=== PATIENT | female | born 1985 | race African-American/Black ===

== ENCOUNTER 2016-02-18 08:42 | Emergency (ER) | payer OTHER ==
[2016-02-18 08:48] VITALS: RESP 18
--- NOTE | 2016-02-18 08:57 | ED ---
Abdominal Pain HPI - General Chief Complaint: Abdominal Pain Stated Complaint: abd pain Time Seen by Provider: 02/18/16 08:48 Source: patient, RN notes reviewed Mode of arrival: ambulatory Limitations: no limitations - History of Present Illness Initial Comments: 30-year-old female presents emergency Department chief complaint left lower quadrant abdominal pain. Patient states the pain on and off over the last month and half. Patient states that she believes she has ovarian cysts. Patient states she has not had a menstrual cycle going to months. She states that she is not she's had multiple tests. Denies any vaginal bleeding vaginal discharge. Patient denies any nausea, vomiting, diarrhea constipation. She states putting pressure over the area does improve her symptoms. Patient states she had a Pap smear and end of December which was normal. Patient denies any fevers, chills. Denies any dysuria or hematuria. She did admit to some urinary frequency. - Related Data Home Medications Medication Instructions Recorded Confirmed Hydrochlorothiazide [Hydrodiuril] 25 mg PO DAILY 01/15/16 02/18/16 amLODIPine [Norvasc] 5 mg PO DAILY 01/15/16 02/18/16 metroNIDAZOLE [Flagyl] 500 mg PO TID 02/18/16 02/18/16 Allergies Allergy/AdvReac Type Severity Reaction Status Date / Time doxycycline Allergy Rash/Hives Verified 02/18/16 10:10 Review of Systems ROS Statement: Those systems with pertinent positive or pertinent negative responses have been documented in the HPI. ROS Other: All systems not noted in ROS Statement are negative. Past Medical History Past Medical History: GERD/Reflux, Hypertension, Pneumonia History of Any Multi-Drug Resistant Organisms: MRSA Date of last positivie culture/infection: 2006 MDRO Source:: LEFT LEG Additional Past Surgical History / Comment(s): GANGLION CYST REMOVAL, OVARIAN CYST REMOVAL Past Psychological History: Anxiety Smoking Status: Former smoker Past Alcohol Use History: None Reported, Rare Past Drug Use History: None Reported - Past Family History Father Family Medical History: Congestive Heart Failure (CHF), Diabetes Mellitus, Deep Vein Thrombosis (DVT), Hypertension, Sleep Apnea/CPAP/BIPAP General Exam Limitations: no limitations General appearance: alert, in no apparent distress Head exam: Present: atraumatic, normocephalic, normal inspection Respiratory exam: Present: normal lung sounds bilaterally. Absent: respiratory distress, wheezes, rales, rhonchi, stridor Cardiovascular Exam: Present: regular rate, normal rhythm, normal heart sounds. Absent: systolic murmur, diastolic murmur, rubs, gallop, clicks GI/Abdominal exam: Present: soft, tenderness (Mild to moderate left lower quadrant tenderness), normal bowel sounds. Absent: distended, guarding, rebound , rigid Back exam: Absent: CVA tenderness (R), CVA tenderness (L) Neurological exam: Present: alert, oriented X3 Skin exam: Present: warm, dry, intact, normal color. Absent: rash Course Vital Signs 02/18/16 08:45 Temperature 97.3 F L Pulse Rate 90 Respiratory 18 Rate Blood Pressure 151/68 O2 Sat by Pulse 99 Oximetry Medical Decision Making - Medical Decision Making 30-year-old female presents emergency Department for left sided abdominal pain. Patient was concerned about ovarian cysts and one. PATIENT ULTRASOUND DOES NOT SHOW OVARIAN CYST. PATIENT LAB WORK WITHIN NORMAL LIMITS. THIS IS ONGOING PAIN. 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 RETURN PARAMETERS WERE DISCUSSED. - Lab Data Result diagrams: 02/18/16 09:20 02/18/16 09:20 Lab Results 02/18/16 02/18/16 02/18/16 Range/Units 09:20 09:20 09:20 WBC 9.4 (3.8-10.6) k/uL RBC 4.64 (3.80-5.40) m/uL Hgb 13.2 (11.4-16.0) gm/dL Hct 39.9 (34.0-46.0) % MCV 86.0 (80.0-100.0) fL MCH 28.4 (25.0-35.0) pg MCHC 33.0 (31.0-37.0) g/dL RDW 13.5 (11.5-15.5) % Plt Count 367 (150-450) k/uL Neutrophils % 60 % Lymphocytes % 30 % Monocytes % 6 % Eosinophils % 3 % Basophils % 0 % Neutrophils # 5.7 (1.3-7.7) k/uL Lymphocytes # 2.8 (1.0-4.8) k/uL Monocytes # 0.6 (0-1.0) k/uL Eosinophils # 0.2 (0-0.7) k/uL Basophils # 0.0 (0-0.2) k/uL Sodium 145 (137-145) mmol/L Potassium 3.5 (3.5-5.1) mmol/L Chloride 103 (98-107) mmol/L Carbon Dioxide 26 (22-30) mmol/L Anion Gap 16 mmol/L BUN 16 (7-17) mg/dL Creatinine 0.86 (0.52-1.04) mg/dL Est GFR (MDRD) Af Amer >60 (>60 ml/min/1.73 sqM) Est GFR (MDRD) Non-Af >60 (>60 ml/min/1.73 sqM) Glucose 106 H (74-99) mg/dL Calcium 9.7 (8.4-10.2) mg/dL Total Bilirubin 0.5 (0.2-1.3) mg/dL AST 28 (14-36) U/L ALT 40 (9-52) U/L Alkaline Phosphatase 62 (38-126) U/L Total Protein 7.8 (6.3-8.2) g/dL Albumin 4.6 (3.5-5.0) g/dL Amylase 85 (30-110) U/L Lipase 186 (23-300) U/L Urine Color Urine Appearance (Clear) Urine pH (5.0-8.0) Ur Specific [place] (1.001-1.035) Urine Protein (Negative) Urine Glucose (UA) (Negative) Urine Ketones (Negative) Urine Blood (Negative) Urine Nitrate (Negative) Urine Bilirubin (Negative) Urine Urobilinogen (<2.0) mg/dL Ur Leukocyte Esterase (Negative) Urine RBC (0-5) /hpf Urine WBC (0-5) /hpf Ur Squamous Epith Cells (0-4) /hpf Urine Bacteria (None) /hpf Urine Mucus (None) /hpf Urine HCG, Qual Not Detected (Not Detectd) 02/18/16 Range/Units 09:20 WBC (3.8-10.6) k/uL RBC (3.80-5.40) m/uL Hgb (11.4-16.0) gm/dL Hct (34.0-46.0) % MCV (80.0-100.0) fL MCH (25.0-35.0) pg MCHC (31.0-37.0) g/dL RDW (11.5-15.5) % Plt Count (150-450) k/uL Neutrophils % % Lymphocytes % % Monocytes % % Eosinophils % % Basophils % % Neutrophils # (1.3-7.7) k/uL Lymphocytes # (1.0-4.8) k/uL Monocytes # (0-1.0) k/uL Eosinophils # (0-0.7) k/uL Basophils # (0-0.2) k/uL Sodium (137-145) mmol/L Potassium (3.5-5.1) mmol/L Chloride (98-107) mmol/L Carbon Dioxide (22-30) mmol/L Anion Gap mmol/L BUN (7-17) mg/dL Creatinine (0.52-1.04) mg/dL Est GFR (MDRD) Af Amer (>60 ml/min/1.73 sqM) Est GFR (MDRD) Non-Af (>60 ml/min/1.73 sqM) Glucose (74-99) mg/dL Calcium (8.4-10.2) mg/dL Total Bilirubin (0.2-1.3) mg/dL AST (14-36) U/L ALT (9-52) U/L Alkaline Phosphatase (38-126) U/L Total Protein (6.3-8.2) g/dL Albumin (3.5-5.0) g/dL Amylase (30-110) U/L Lipase (23-300) U/L Urine Color Yellow Urine Appearance Cloudy H (Clear) Urine pH 5.5 (5.0-8.0) Ur Specific [place] 1.020 (1.001-1.035) Urine Protein Trace H (Negative) Urine Glucose (UA) Negative (Negative) Urine Ketones Trace H (Negative) Urine Blood Trace H (Negative) Urine Nitrate Negative (Negative) Urine Bilirubin Negative (Negative) Urine Urobilinogen <2.0 (<2.0) mg/dL Ur Leukocyte Esterase Trace H (Negative) Urine RBC 4 (0-5) /hpf Urine WBC 3 (0-5) /hpf Ur Squamous Epith Cells 3 (0-4) /hpf Urine Bacteria Rare H (None) /hpf Urine Mucus Rare H (None) /hpf Urine HCG, Qual (Not Detectd) Disposition Clinical Impression: Abdominal pain Disposition: HOME SELF-CARE Condition: Stable Instructions: Abdominal Pain (ED) Additional Instructions: Please return to the Emergency Department if symptoms worsen or any other concerns. Time of Disposition: 11:24
[2016-02-18 09:37] LABS: Appearance,Urine Cloudy (Clear); Bacteria,Urine Rare /hpf; Bilirubin,Urine Negative (Negative); Glucose,Urine (UA) Negative (Negative); Ketones,Urine Trace (Negative); Leukocyte Esterase,Urine Trace (Negative); Mucus,Urine Rare /hpf; Nitrite,Urine Negative (Negative); PH, Urine 5.5 (5.0-8.0); Particle Count 4312; Protein,Urine Trace (Negative); RBC,Urine 4 /hpf (0-5); Squamous Epithelial Cell,Urine 3 /hpf (0-4); UA Billing (MACRO vs. MICRO) MICRO; Urobilinogen,Urine <2.0 mg/dL (<2.0); WBC,Urine 3 /hpf (0-5)
[2016-02-18 09:49] LABS: ALT 40 U/L (9-52); AST 28 U/L (14-36); Alkaline Phosphatase 62 U/L (38-126); Amylase 85 U/L (30-110); Anion Gap 16 mmol/L; Blood Urea Nitrogen 16 mg/dL (7-17); Calcium 9.7 mg/dL (8.4-10.2); Carbon Dioxide 26 mmol/L (22-30); Chloride 103 mmol/L (98-107); Glucose 106 mg/dL (74-99); Non-African American GFR(MDRD) >60 (>60 ml/min/1.73 sqM); Potassium 3.5 mmol/L (3.5-5.1); Sodium 145 mmol/L (137-145); Total Bilirubin 0.5 mg/dL (0.2-1.3); Total Protein 7.8 g/dL (6.3-8.2)
[2016-02-18 09:51] LABS: Basophils % (A) 0 %; CH 28.4; CHCM 33.2; Eosinophils # (A) 0.2 k/uL (0-0.7); Eosinophils % (A) 3 %; HCT 39.9 % (34.0-46.0); HDW 2.62; HGB 13.2 gm/dL (11.4-16.0); Luc # (Auto) 0.13; Luc % (Auto) 1; Lymphocytes # (A) 2.8 k/uL (1.0-4.8); Lymphocytes % (A) 30 %; MCH 28.4 pg (25.0-35.0); Mean Platelet Volume 7.7; Monocytes # (A) 0.6 k/uL (0-1.0); Monocytes % (A) 6 %; Neutrophils # (A) 5.7 k/uL (1.3-7.7); Neutrophils % (A) 60 %; RBC 4.64 m/uL (3.80-5.40); RDW 13.5 % (11.5-15.5); WBC 9.4 k/uL (3.8-10.6); WBC (Perox) 9.71
[2016-02-18] MEDS ORDERED: KETOROLAC 30 MG/ML 1 ML VIAL IVP STA (10:58)
--- NOTE | 2016-02-18 11:05 | US ---
EXAMINATION TYPE: US pelvis complete transvag DATE OF EXAM: 02/18/2016 9:49 AM COMPARISON: Prior pelvic ultrasound performed April 2015 CLINICAL HISTORY: LLQ pain. Irregular Periods. TECHNIQUE: Endovaginal pelvic ultrasound scanning performed. Date of LMP: December EXAM MEASUREMENTS: Uterus: 10.3 x 7.6 x 6.5 cm Endometrial Stripe: 0.9 cm Right Ovary: 3.1 x 2.3 x 1.8 cm Left Ovary: 3.5 x 2.7 x 2.5 cm FINDINGS: 1. Uterus: bulky, cystic areas in SRAVANTHI likely nabothian cysts, the uterus is anteverted. 2. Endometrium: wnl 3. Right Ovary: wnl, with follicles. 4. Left Ovary: wnl, with follicles. Spectral, color and waveform doppler imaging shows good arterial and venous flow within the ovaries ; there is no evidence for ovarian torsion. 5. Bilateral Adnexa: wnl 6. Posterior cul-de-sac: wnl Grayscale, color Doppler, spectral Doppler imaging performed of the ovaries. Color flow, vascular wav eforms noted to both ovaries. IMPRESSION: Endometrium is improved compared to prior exam. Normal Values: Uterine Length: < 10cm Endometrium: Proliferative (Day 6 ? 14): 4 ? 6mm Secretory (Day 15 ? 28): 7 ? 14mm Post Menopausal (and not symptomatic): up to 8mm Post Menopausal (with vaginal bleeding): upper limits <5mm Post Menopausal with HRT: upper limits 8 - 15mm Post Menopausal with tamoxifen: < 6mm (although 50% of those receiving tamoxifen have been reported t o have thickness >8mm)
[2016-02-18 11:33] VITALS: BP 131/63; PULSE 82; TEMP 97.9
== END 2016-02-18 11:34 | disposition home or self-care (01) ==
LOC: EC 08:42
DX: R10.32 Left lower quadrant pain (principal); R35.0 Frequency of micturition; Z79.899 Other long term (current) drug therapy; Z88.1 Allergy status to other antibiotic agents; I10 Essential (primary) hypertension; Z87.891 Personal history of nicotine dependence
CPT/HCPCS: 99284; 96374; 36415; 80053; 82150; 83690; 85025; 81001; 81025; 93975; 76856; 76830; J1885

== ENCOUNTER → 2016-05-06 | Outpatient (CLI) | payer OTHER | LOC: RADMAMWWP 07:42 | PROVIDERS: ATTEND Family Medicine | DX: Z53.9 Procedure and treatment not carried out, unspecified reason (principal) ==

== ENCOUNTER 2016-12-20 16:30 | Inpatient (IN) | payer OTHER ==
[2016-12-20] MEDS ORDERED: RX INFO: IV CONTRAST WAS GIVEN 1 EACH MISC MISCELLANE PRN (17:49)
[2016-12-20] MEDS ORDERED: ACETAMINOPHEN TAB 325 MG TAB PO PRN (18:05)
[2016-12-20] MEDS: HYDROmorphone 1 MG/ML 1 ML SYRINGE IVP PRN ×2 (18:34→23:34)
[2016-12-20 18:43] LABS: Basophils # (A) 0.1 k/uL (0-0.2); Basophils % (A) 1 %; CH 28.1; CHCM 32.5; Eosinophils # (A) 0.4 k/uL (0-0.7); Eosinophils % (A) 2 %; HCT 40.1 % (34.0-46.0); HDW 2.87; HGB 12.7 gm/dL (11.4-16.0); Immature Gran Flag Slight; Luc # (Auto) 0.17; Luc % (Auto) 1; Lymphocytes # (A) 1.7 k/uL (1.0-4.8); Lymphocytes % (A) 10 %; MCH 27.6 pg (25.0-35.0); MCHC 31.8 g/dL (31.0-37.0); MCV 86.9 fL (80.0-100.0); Monocytes # (A) 0.6 k/uL (0-1.0); Monocytes % (A) 3 %; Neutrophils # (A) 14.8 k/uL (1.3-7.7); Neutrophils % (A) 84 %; RBC 4.61 m/uL (3.80-5.40); RDW 13.4 % (11.5-15.5); WBC 17.7 k/uL (3.8-10.6); WBC (Perox) 19.07
[2016-12-20 18:52] LABS: Manual Review Performed
[2016-12-20] MEDS: IOHEXOL 350 MG/ML 25 ML BOTTLE (ORAL USE) PO PRN ×2 (19:17→20:16)
[2016-12-20 20:06] LABS: ALT 44 U/L (9-52); AST 34 U/L (14-36); Alkaline Phosphatase 73 U/L (38-126); Anion Gap 10 mmol/L; Blood Urea Nitrogen 15 mg/dL (7-17); Calcium 9.5 mg/dL (8.4-10.2); Carbon Dioxide 21 mmol/L (22-30); Chloride 105 mmol/L (98-107); Glucose 105 mg/dL (74-99); Non-African American GFR(MDRD) >60 (>60 ml/min/1.73 sqM); Potassium 3.5 mmol/L (3.5-5.1); Sodium 136 mmol/L (137-145); Total Bilirubin 0.4 mg/dL (0.2-1.3); Total Protein 7.2 g/dL (6.3-8.2)
[2016-12-20] MEDS: AMPICILLIN-SULBACTAM 3 GM in SODIUM CHLORIDE 0.9% 100 ML IVPB SCH ×2 (20:16→23:41)
[2016-12-20] MEDS: IBUPROFEN 800 MG TAB PO SCH ×2 (20:16→23:32)
[2016-12-20] MEDS: DEXTROSE 5%-0.45% NACL 1,000 ML IV SCH (20:19)
[2016-12-20 20:40] LABS: Appearance,Urine Cloudy (Clear); Bacteria,Urine Rare /hpf; Bilirubin,Urine Negative (Negative); Glucose,Urine (UA) Negative (Negative); Ketones,Urine Negative (Negative); Leukocyte Esterase,Urine Negative (Negative); Mucus,Urine Rare /hpf; Nitrite,Urine Negative (Negative); Particle Count 2588; Protein,Urine Trace (Negative); RBC,Urine 5 /hpf (0-5); Specific Gravity,Urine 1.018 (1.001-1.035); Squamous Epithelial Cell,Urine 5 /hpf (0-4); UA Billing (MACRO vs. MICRO) MICRO; WBC,Urine 1 /hpf (0-5)
--- NOTE | 2016-12-20 22:37 | CT ---
EXAMINATION TYPE: CT abdomen pelvis w con DATE OF EXAM: 12/20/2016 COMPARISON: 11/01/2010 HISTORY: Middle to lower back pain. CT DLP: 2510.5 mGycm Automated exposure control for dose reduction was used. TECHNIQUE: Helical acquisition of images was performed from the lung bases through the pelvis. CONTRAST: Performed with Oral Contrast and with IV Contrast, patient injected with 100 mL of Omnipaque 300. FINDINGS: Lung bases are clear of infiltrate. There is no pleural effusion. Liver spleen pancreas gallbladder a ppear normal. Bile ducts are not dilated. There is no adrenal mass. Kidneys show satisfactory contrast opacification. There is no hydronephrosi s. There is no retroperitoneal adenopathy. There is no ascites. Appendix appears normal. The bladder distends smoothly. There is a oval-shaped 5 x 2.5 cm fluid collection in the pelvis on the right side that is probably an ovarian cyst. I see no intestinal wall thickening. There are no dilated loops. IMPRESSION: THERE IS EVIDENCE OF LARGE RIGHT OVARIAN CYST THAT IS NEW COMPARED TO OLD EXAM. NORMAL APPENDIX.
[2016-12-21] MEDS: DEXTROSE 5%-0.45% NACL 1,000 ML IV SCH ×4 (02:04→22:46)
[2016-12-21] MEDS: HYDROmorphone 1 MG/ML 1 ML SYRINGE IVP PRN ×4 (05:24→23:50)
[2016-12-21] MEDS: AMPICILLIN-SULBACTAM 3 GM in SODIUM CHLORIDE 0.9% 100 ML IVPB SCH ×4 (05:25→23:11)
[2016-12-21] MEDS: IBUPROFEN 800 MG TAB PO SCH ×4 (08:54→22:51)
--- NOTE | 2016-12-21 10:10 | US ---
EXAMINATION TYPE: US abdomen complete DATE OF EXAM: 12/21/2016 COMPARISON: CT dated 12/20/2016 CLINICAL HISTORY: abd pain . Pt states ABD pain, generalized EXAM MEASUREMENTS: Liver Length: 19.3 cm Gallbladder Wall: 0.2 cm CBD: 0.4 cm Spleen: 10.5 cm Right Kidney: 11.6 x 5.0 x 6.0 cm Left Kidney: 12.3 x 6.6 x 5.5 cm Large pt body habitus Pancreas: wnl Liver: Enlarged, heterogeneous with hyperechoic lesion right anterior lobe= 2.2 x 1.9 x 2.3 cm . Int ernally within this hyperechoic well-circumscribed lesion there appears to be possible portal triads coursing unaffected therefore this may relate to focal fatty infiltration, hemangioma or less likely hepatic neoplasm. Full characterization with CT thorax is recommended. Gallbladder: wnl Evidence for sonographic Coelho's sign: No CBD: wnl Spleen: wnl Right Kidney: wnl Left Kidney: Appeared wnl, somewhat difficult to visualize due to overlying bowel gas Upper IVC: wnl Abd Aorta: wnl The intrahepatic portion of the IVC and proximal abdominal aorta are within normal limits. There is no evidence of cholelithiasis. Common bile duct is unremarkable. The visualized portions of the [place] are homogenous. The spleen is unremarkable. Kidneys are symmetric and free of hydronephrosis. No renal lesions are seen. IMPRESSION: 1. 2.2 cm hyperechoic hepatic lesion with question portal triads coursing through the mass unaffected , therefore favored to relate to focal fatty infiltration, however full characterization with dynamic enhanced CT or MR hepatic mass protocol is recommended to ensure benignity, this does not relate to a hepatic neoplasm. 2. Mild coarsened hepatic echotexture, most commonly relating to mild hepatic steatosis. 3. No sonographic evidence of acute cholecystitis or cholelithiasis.
--- NOTE | 2016-12-21 12:53 | CONS ---
CONSULTATION DATE OF SERVICE: 12/21/2016 REASON FOR CONSULTATION: Urinary tract infection. HISTORY OF PRESENT ILLNESS: The patient is a 31-year-old female who has been admitted to the hospital directly from Dr. Calhoun's office for evaluation and treatment of possible pyelonephritis. The patient says she was doing well; however, yesterday she suddenly got hit with a fever with rigors and chills, generalized body aches. The patient had been complaining of pain in her left flank area, is described to be sharp pain almost 10/10, and no radiation. The patient denies significant burning or frequency of urine. No diarrhea. Some nausea but no vomiting. With these symptoms, the patient was evaluated and diagnosed with possible pyelonephritis. She was started on Unasyn and admitted to the hospital and ID was consulted for further recommendation regarding antibiotic therapy. On arrival to the hospital, patient did have fever of 102.3 , later on did have fever of 101.2. Blood work did show the white count of 17.7. However, UA was not significantly positive and blood cultures obtained which are currently pending. Patient did have a CT of the abdominal and pelvis which did see the possibility of a right ovarian cyst, that is new compared to the old exam. REVIEW OF SYSTEMS: CONSTITUTIONAL: Positive for weakness along with the fever. EYES: No complaint. ENT: Some congestion noted and some sore throat started yesterday. RESPIRATORY SYSTEM: No complaint. CARDIOVASCULAR: No complaint. GENITOURINARY: No complaint. GASTROINTESTINAL: As per HPI. MUSCULOSKELETAL: No complaint. INTEGUMENTARY: No complaint. PSYCHOLOGICAL: No complaint. ENDOCRINE: No complaint. NEUROLOGICAL: No complaint. PAST MEDICAL HISTORY: Hypertension, gastroesophageal reflux disease, pneumonia. Previous history of breast reduction, site infection with Staph epi and MRSA left leg infection. PAST SURGICAL HISTORY: ovarian cyst removal and bilateral breast reduction. SOCIAL HISTORY: Remote history of smoking, no drinking or drug use. FAMILY HISTORY: Father history of congestive heart failure, diabetes, and DVT. ALLERGIES: DOXYCYCLINE. MEDICATIONS: The patient is currently on Tylenol, Unasyn 3 g q.6. He is on Dilaudid, Motrin. PHYSICAL EXAMINATION: Blood pressure is 128/78 with a pulse of 70, temperature 97.5, T-max of 101. She is 98% on room air. General description is a middle aged female, lying in bed in no distress. No tachypnea or accessory muscle for respiration use. HEENT: Shows no pallor or scleral icterus. Oral mucosa is dry. No significant erythema or thrush. NECK: Trachea central, no thyromegaly. LUNGS: Unlabored breathing, clear to auscultation anteriorly. HEART: S1, S2. Regular rate and rhythm. ABDOMEN: Soft,. noted have mild tenderness on the left flank area. No guarding. No rigidity. EXTREMITIES: No edema. Feet examination no rash or mass palpable. Neurologically, patient is awake, alert, oriented x3. No signs of meningeal irritation. LABS: Hemoglobin is 12.7, white count 17.7 with a BUN of 15, creatinine 1.0. Urine was slightly cloudy, had no significant leukocyte esterases, nitrate or white cells. CT report as mentioned above. DIAGNOSTIC IMPRESSION AND PLAN: Patient admitted to the hospital with a fever with elevated white count, meeting criteria for SIRS and sepsis predominantly with pain in the left flank area that could be suggestive of possible pyelonephritis. However, the patient's UA was not significantly positive and the CT suspicious mostly for a ovarian cyst with a question of possible ruptured ovarian cyst. However, with her symptoms of body aches and some upper respiratory infection symptoms, underlying influenza need to be ruled out. PLAN: 1. Will check an influenza A and B serology. 2. Will check an ultrasound of the pelvic area to follow up on the ovarian cyst. 3. Will keep the patient on Unasyn while waiting for the culture to finalize. 4. Will follow up on the clinical condition and culture to further adjust medication if needed. Thank you for this consultation. Will follow this patient along with you. MMODL / IJN: [id number] / ANNALISA
--- NOTE | 2016-12-21 14:36 | US ---
EXAMINATION TYPE: US transvaginal DATE OF EXAM: 12/21/2016 COMPARISON: Prior ultrasound 02/18/2016, CT scan 12/20/2016 CLINICAL HISTORY: pelvic pain ?ovarian cyst/rupture. TECHNIQUE: Transvaginal (TV) Date of LMP: 10/10/16 EXAM MEASUREMENTS: Uterus: 10.4 x 5.5 x 6.5 cm Endometrial Stripe: 1.5 cm Right Ovary: 5.4 x 3.4 x 4.6 cm Left Ovary: not visualized 1. Uterus: Anteverted wnl, nabothians noted 2. Endometrium: thickened 3. Right Ovary: 4.7 x 2.9 x 4.5cm cyst 4. Left Ovary: Obscured by overlying bowel gas 5. Bilateral Adnexa: wnl 6. Posterior cul-de-sac: wnl IMPRESSION: The thickening of the endometrium has recurred. Right ovarian cyst. Nonvisualization left ovary. Follow-up suggested.
--- NOTE | 2016-12-21 17:08 | HP ---
HISTORY AND PHYSICAL DATE OF ADMISSION: 12/20/16 CHIEF COMPLAINT: Abdominal pain and fever. HISTORY OF PRESENT ILLNESS: This is the first admission for this 31-year-old, obese female. She came to the office with complaints of lower abdominal and back pain. The pain is in the flank area. She had no vomiting but she had an elevated temperature of around 104. In the office her flat and upright failed to demonstrate anything abnormal, but it was felt that she may be developing sepsis and should be admitted. REVIEW OF SYSTEMS: She has had no confusion, hemoptysis, heart disease, lung disease, hematemesis, melena, jaundice, renal disease, hematuria, frequency, urgency, and dysuria, etc. PAST MEDICAL HISTORY: Past medical history, family history personal social history is unremarkable except that she does have hypertension and some problems with asthma. SOCIAL HISTORY: She does smoke. She has not had any swelling in the leg. PHYSICAL EXAM: Blood pressure 142/82, pulse 108, respirations of 36 and temperature of 104.6. In general she appeared to be obese and acutely ill. Skin color is normal. Skin was hot and dry. Head ears, eyes, nose, mouth, and throat were normal. NECK: Supple. Chest is clear. Cardiac exam is normal. She had some mild generalized tenderness in the abdomen, flanks slightly were not tender. EXTREMITIES: Normal. Neurologically she is intact. Pelvic exam was not performed. IMPRESSION: 1. Abdominal pain. 2. Flank pain. 3. ? pyelonephritis. 4. ? sepsis. PLAN: 1. Bed rest. 2. IV fluids. 3. IV antibiotics. 4. Appropriate cultures. 5. Consult Infectious Disease. MMODL / IJN: [id number] /
--- NOTE | 2016-12-21 17:29 | PN ---
PROGRESS NOTE DATE OF SERVICE: 12/21/2016 CHIEF COMPLAINT: Abdominal pain and fever. HISTORY OF PRESENT ILLNESS: This lady is doing better and temperature is down. She is not having nearly the pain that she was having. Her CT does show a large right ovarian cyst which is not likely to be consistent with her presentation. PHYSICAL EXAM: Her abdomen seems soft and nontender and flanks are nontender. CHEST: Clear. CARDIAC: Normal. IMPRESSION: 1. Fever of unknown origin. 2. Flank pain. 3. Right ovarian cyst. PLAN: Continue to follow in terms of clinical picture and laboratory studies. While awaiting cultures. MMODL / IJN: [id number] /
[2016-12-22] MEDS: DEXTROSE 5%-0.45% NACL 1,000 ML IV SCH ×4 (01:48→21:56)
[2016-12-22] MEDS: AMPICILLIN-SULBACTAM 3 GM in SODIUM CHLORIDE 0.9% 100 ML IVPB SCH ×4 (05:26→23:42)
[2016-12-22] MEDS: HYDROmorphone 1 MG/ML 1 ML SYRINGE IVP PRN ×4 (05:26→23:42)
[2016-12-22 06:58] LABS: Basophils # (A) 0.1 k/uL (0-0.2); Basophils % (A) 1 %; CH 27.9; CHCM 31.3; Eosinophils # (A) 0.4 k/uL (0-0.7); Eosinophils % (A) 4 %; HCT 36.8 % (34.0-46.0); HDW 2.74; HGB 11.4 gm/dL (11.4-16.0); Hypochromasia Slight; Luc # (Auto) 0.21; Luc % (Auto) 2; Lymphocytes # (A) 2.1 k/uL (1.0-4.8); Lymphocytes % (A) 18 %; MCH 27.8 pg (25.0-35.0); MCV 89.4 fL (80.0-100.0); Mean Platelet Volume 6.5; Monocytes # (A) 0.6 k/uL (0-1.0); Monocytes % (A) 5 %; Neutrophils # (A) 8.4 k/uL (1.3-7.7); Neutrophils % (A) 71 %; RBC 4.11 m/uL (3.80-5.40); RDW 13.4 % (11.5-15.5); WBC 11.9 k/uL (3.8-10.6); WBC (Perox) 12.22
[2016-12-22 07:15] LABS: Anion Gap 7 mmol/L; Blood Urea Nitrogen 9 mg/dL (7-17); Calcium 8.6 mg/dL (8.4-10.2); Carbon Dioxide 25 mmol/L (22-30); Chloride 106 mmol/L (98-107); Glucose 91 mg/dL (74-99); Non-African American GFR(MDRD) >60 (>60 ml/min/1.73 sqM); Potassium 3.8 mmol/L (3.5-5.1); Sodium 138 mmol/L (137-145)
[2016-12-22] MEDS: IBUPROFEN 800 MG TAB PO SCH ×4 (08:25→21:34)
--- NOTE | 2016-12-22 14:41 | PN ---
PROGRESS NOTE CHIEF COMPLAINT: Abdominal pain and fever consistent with pyelonephritis. HISTORY OF PRESENT ILLNESS: This lady is doing a lot better. Temperature has been down and she is feeling better. She has had no vomiting. She has developed some left upper quadrant pain which is surprising. She has a large right ovarian cyst and will ask Gynecology to evaluate this. PHYSICAL EXAM: Her chest is clear. The cardiac exam is normal. The abdomen is protuberant, soft and she it a little bit tender in the left upper quadrant. Flanks nontender. IMPRESSION: 1. Fever with abdominal back pain. 2. Pyelonephritis. 3. Left upper quadrant pain, etiology unknown. 4. Large right ovarian cyst. PLAN: 1. Continue to monitor findings, temperature and CBC. 2. FURS SALESPERSON consult. MMODL / JULIO CESARN: [id number] /
[2016-12-23] MEDS: AMPICILLIN-SULBACTAM 3 GM in SODIUM CHLORIDE 0.9% 100 ML IVPB SCH ×2 (05:31→11:32)
[2016-12-23] MEDS: HYDROmorphone 1 MG/ML 1 ML SYRINGE IVP PRN ×3 (05:31→16:37)
[2016-12-23] MEDS: DEXTROSE 5%-0.45% NACL 1,000 ML IV SCH ×2 (05:56→11:36)
--- NOTE | 2016-12-23 07:30 | PN ---
PROGRESS NOTE DATE OF SERVICE: 12/22/2016. REASON FOR FOLLOWUP: Fever. Question of urinary tract infection. INTERVAL HISTORY: The patient overall feels better. She has improved. She has been breathing comfortably. Complains of some pain in the left flank area. No nausea, no vomiting, no diarrhea. PHYSICAL EXAMINATION: Blood pressure is 128/58 with a pulse of 74, temperature 97.6. She is 100% on room air. General description is a middle-aged female in the bed, in no distress. RESPIRATORY SYSTEM: Unlabored breathing, clear to auscultation. HEART: S1, S2, regular rate and rhythm. ABDOMEN: Soft, no tenderness. LABS: Hemoglobin is 11.5, white count of 11.9, BUN of 9, creatinine 0.80. Culture has been negative so far. CT and ultrasound were reviewed with the Radiologist, Dr. Pa with the patient with no evidence of any pyelonephritis or ruptured ovarian cyst and no abnormality in the spine or the bones were noted. DIAGNOSTIC IMPRESSION AND PLAN: Patient with a fever and an elevated white count with no clear focus with concern for possible urinary tract infection. The urine cultures were negative. The patient's fever and white count responded to the Unasyn. Patient will be given a short course of oral Augmentin on discharge. Continue supportive care. MMODL / IJN: [id number] /
[2016-12-23] MEDS: IBUPROFEN 800 MG TAB PO SCH ×2 (09:11→12:46)
[2016-12-23 14:54] VITALS: BP 124/84; PULSE 88; RESP 17; TEMP 98.4
--- NOTE | 2016-12-23 19:06 | PN ---
PROGRESS NOTE DATE OF SERVICE: 12/23/2016. REASON FOR FOLLOWUP: Fever and possible UTI. INTERVAL HISTORY: The patient is afebrile. She is breathing comfortably. Still complains of pain in the left flank area. No chest pain, shortness of breath or cough. No abdominal pain and no diarrhea. EXAMINATION: Blood pressure 124/84 with a pulse of 88, temperature 98.4. She is 100% on room air. General description is a middle-aged female lying in bed in no distress. RESPIRATORY SYSTEM: Unlabored breathing. Clear to auscultation anteriorly. HEART: S1, S2. Regular rate and rhythm. ABDOMEN: Soft, no tenderness. LABS: No new labs have been obtained today. Blood and urine culture so far negative. DIAGNOSTIC IMPRESSION AND PLAN: Patient admitted to the hospital with fever and left flank pain with question of possible urinary tract infection; however, urine culture so far negative. The patient did show overall improvement on the Unasyn. She did have a Augmentin prescription that she will finish with close outpatient followup. MMODL / IJN: [id number] /
--- NOTE | 2016-12-25 07:23 | DS ---
DISCHARGE SUMMARY CHIEF COMPLAINT: Fever, abdominal flank pain, and sepsis. HISTORY OF PRESENT ILLNESS AND PHYSICAL EXAM: Details of this lady's history and physical can be found in the initial workup. LABORATORY STUDIES: While she was in the hospital she had laboratory studies, the details which can be found in the laboratory section of her chart. COURSE IN HOSPITAL: After admission, she was placed in bedrest, started on intravenous fluids and IV antibiotics. Temperature came down. She continued to clinically improve. It was felt this probably was pyelonephritis. While in the hospital she was also found to have a large right ovarian cyst and a consult was placed with gynecology. She is doing well, temperature is down and she had no further pain. It was felt that she could go home on the and she will be followed up in the office in several days. FINAL DIAGNOSES: 1. Acute pyelonephritis. 2. Sepsis. 3. History of hypertension. 4. Right ovarian cyst. OPERATIONS: None. CONSULTATIONS: Gynecology. She is improved. MMZHAO / JULIO CESARN: [id number] /
== END 2016-12-23 17:55 | disposition home or self-care (01) | DRG 720 ==
LOC: 3SUR 16:39
PROVIDERS: ADMIT Family Medicine; ATTEND Family Medicine
DX: A41.9 Sepsis, unspecified organism (principal); N10 Acute pyelonephritis; I10 Essential (primary) hypertension; F17.200 Nicotine dependence, unspecified, uncomplicated; J45.909 Unspecified asthma, uncomplicated; K21.9 Gastro-esophageal reflux disease without esophagitis; N83.201 Unspecified ovarian cyst, right side; E66.9 Obesity, unspecified; Z88.1 Allergy status to other antibiotic agents; Z86.14 Personal history of Methicillin resistant Staphylococcus aureus infection; Z82.49 Family history of ischemic heart disease and other diseases of the circulatory system
CPT/HCPCS: 74177; 76700; 76830; 80048; 80053; 81001; 81025; 83605; 85025; 87040; 87086; 87502; 93005

== ENCOUNTER → 2017-02-17 | Day surgery (SDC) | payer OTHER ==
[2017-02-17 09:27] VITALS: TEMP 98.1; BMI 43.5
--- NOTE | 2017-02-17 11:03 | USB ---
EXAMINATION TYPE: US biopsy breast VAD RT, MG diagnostic mammo RT wo CAD DATE OF EXAM: 02/17/2017 CLINICAL HISTORY: R92.8 ABN Mammogram. TECHNIQUE: Ultrasound guided core biopsy of right 10:00 breast mass. COMPARISON: NONE FINDINGS: The procedure of ultrasound guided core biopsy was explained to the patient. Benefits, alternatives, and risks were discussed. An informed consent was then obtained. The patient was placed in supine positioning for imaging and for the procedure. The overlying skin was prepped and draped in usual sterile fashion. Lidocaine buffered with bicarbonate was used as anesthetic into the skin and subcutaneous tissue up to area of concern in the right 10:00 breast mass. A meseret was made with surgical scalpel. Under ultrasound guidance, a 12-gauge vacuum assisted biopsy gun device was used to obtain 5 core samples. Following this, a biopsy clip was left in lesion. Postprocedural mammogram demonstrates appropriate deployment. The patient tolerated the procedure well without any immediate complication. The patient was kept in the radiology department for short stay after the procedure and then discharged home in stable condition. IMPRESSION: Successful, uncomplicated ultrasound guided core biopsy of area of concern in the right 10:00 breast mass. , full pathology results to follow. Pathology Results: Benign BREAST, RIGHT, CORE BIOPSY: FAT NECROSIS WITH SCAR, FIBROSIS, CHRONIC INFLAMMATION AND HISTOCYTES. NEGATIVE FOR MALIGNANCY. Recommendation Follow up ultrasound of the right breast in 6 months. ANNALISA
[2017-02-17 11:40] VITALS: BP 113/77; PULSE 80; RESP 15
== END | disposition home or self-care (01) ==
LOC: RADUSWWP 08:52
PROVIDERS: ATTEND Surgery
DX: N64.1 Fat necrosis of breast (principal); L90.5 Scar conditions and fibrosis of skin; N61.0 Mastitis without abscess; R92.8 Other abnormal and inconclusive findings on diagnostic imaging of breast; Z88.1 Allergy status to other antibiotic agents
CPT/HCPCS: 88305; 77065; 19083; A4648; J2001

== ENCOUNTER → 2017-05-24 | Outpatient (CLI) | payer OTHER ==
--- NOTE | 2017-05-24 11:27 | FL ---
EXAMINATION TYPE: FL UGI air DATE OF EXAM: 05/24/2017 COMPARISON: NONE HISTORY: Abdominal bloating history of reflux TECHNIQUE: A double contrast UGI study is performed. FINDINGS: Byproducts Extractor image of the abdomen shows no gross abnormality. The esophagus dilates to normal caliber has normal contour to the gastroesophageal junction. Gastroes ophageal junction opens to normal caliber. No intraluminal or extramural defect is evident. Small mahi unt reflux was evident during the initial portion of the examination. Fundus body and antrum of the stomach appear unremarkable without intraluminal or extramural defects. Barium readily empties into the normally positioned duodenal cap and sweep. The duodenal bulb, sweep, and proximal small bowel loops are unremarkable. Fluoroscopy time 1 minute 26 seconds. Images: 21 IMPRESSION: 1. Gastroesophageal reflux. 2. Upper GI is otherwise unremarkable.
--- NOTE | 2017-05-24 12:56 | US ---
EXAMINATION TYPE: US gallbladder DATE OF EXAM: 05/24/2017 COMPARISON: US dated 12/21/[address] 12/20/2016 CLINICAL HISTORY: R14.0 ABD Bloating. EXAM MEASUREMENTS: Liver Length: Thought to be enlarged Gallbladder Wall: 0.1 cm CBD: 0.3 cm Right Kidney: 9.3 x 4.0 x 6.0 cm Pancreas: Not well seen in its entirety Liver: Echogenic focus within the left lobe of liver shows a similar appearance1.9 x 1.8 x 2.1cm, t he liver is enlarged and shows coarse echotexture compatible with hepatic steatosis Gallbladder: wnl CBD: wnl Right Kidney: wnl There is no ascites. IMPRESSION: Stable appearance to the liver, correlate for hepatic steatosis, echogenic lesion right l obe is unchanged.
== END | disposition home or self-care (01) ==
LOC: RADUSMAIN 09:14
PROVIDERS: ATTEND Family Medicine
DX: K21.9 Gastro-esophageal reflux disease without esophagitis (principal); K76.9 Liver disease, unspecified
CPT/HCPCS: 74246; 76705

== ENCOUNTER 2017-06-29 10:08 | Emergency (ER) | payer OTHER ==
[2017-06-29] MEDS ORDERED: ONDANSETRON 4 MG/2 ML VIAL IVP STA (11:15)
[2017-06-29] MEDS ORDERED: SODIUM CHLORIDE 0.9% 1,000 ML IV STA ×2 (11:15)
[2017-06-29] MEDS ORDERED: KETOROLAC 30 MG/ML 1 ML VIAL IVP STA (11:15)
[2017-06-29] MEDS ORDERED: PANTOPRAZOLE 40 MG/10 ML VIAL IVP STA (11:15)
[2017-06-29] MEDS ORDERED: MORPHINE SULFATE 4 MG/ML SYRINGE IVP STA (11:16)
--- NOTE | 2017-06-29 12:00 | ED ---
General Adult HPI - General Chief complaint: Abdominal Pain Stated complaint: Kidney infection Source: patient, RN notes reviewed, old records reviewed Mode of arrival: wheelchair Limitations: no limitations - History of Present Illness Initial comments: This is a 31-year-old female the ER for evaluation of severe flank pain left flank pain. Patient is crying and rolling around draining exam. She has stated the pain is severe left flank she has not been taking any medications for pain. She was recently prescribed 2 different antibiotics to help control urinary tract infection which she states has not helped. She states she has occasional fevers but currently does not have a fever to she is not wearing them of) patient states she has been hospitalized before. She does have history of kidney stones - Related Data Home Medications Medication Instructions Recorded Confirmed Hydrochlorothiazide [Hydrodiuril] 25 mg PO DAILY 01/15/16 06/29/17 amLODIPine [Norvasc] 10 mg PO DAILY 12/20/16 06/29/17 HYDROcodone/APAP 5-325MG [[place] 1 tab PO Q4HR PRN 02/17/17 06/29/17 5-325] Amoxicillin/Potassium Clav 1 tab PO Q12HR 06/29/17 06/29/17 [Augmentin 875-125 Tablet] Ibuprofen [Motrin] 800 mg PO TID PRN 06/29/17 06/29/17 Allergies Allergy/AdvReac Type Severity Reaction Status Date / Time doxycycline Allergy Intermediate Rash/Hives Verified 06/29/17 10:57 Review of Systems ROS Statement: Those systems with pertinent positive or pertinent negative responses have been documented in the HPI. ROS Other: All systems not noted in ROS Statement are negative. Past Medical History Past Medical History: Asthma, GERD/Reflux, Hypertension, Pneumonia Additional Past Medical History / Comment(s): SINUS PROBLEMS, Hx of Kidney infection History of Any Multi-Drug Resistant Organisms: MRSA Date of last positivie culture/infection: 2006 AT [facility]O Source:: LEFT LEG Past Surgical History: Tonsillectomy Additional Past Surgical History / Comment(s): GANGLION CYST REMOVAL Right wrist , OVARIAN CYST REMOVAL (Bilateral), d&c (multiple), Breast reduction surgery Feb 2016, Past Anesthesia/Blood Transfusion Reactions: Previous Problems w/ Anesthesia Additional Past Anesthesia/Blood Transfusion Reaction / Comment(s): EARLY WAKING DURING PROCEDURE. HAS HAD BLOOD TRANFUSION-NO REACTION Past Psychological History: Anxiety Smoking Status: Former smoker Past Alcohol Use History: None Reported Past Drug Use History: None Reported - Past Family History Mother Family Medical History: Hypertension Additional Family Medical History / Comment(s): SARCOIDOSIS, BIPOLAR Father Family Medical History: Congestive Heart Failure (CHF), Diabetes Mellitus, Deep Vein Thrombosis (DVT), Hypertension, Sleep Apnea/CPAP/BIPAP General Exam Limitations: no limitations General appearance: alert, in no apparent distress, anxious, obese Head exam: Present: atraumatic, normocephalic, normal inspection Eye exam: Present: normal appearance, PERRL, EOMI. Absent: scleral icterus, conjunctival injection, periorbital swelling ENT exam: Present: normal exam, mucous membranes moist Neck exam: Present: normal inspection. Absent: tenderness, meningismus, lymphadenopathy Respiratory exam: Present: normal lung sounds bilaterally. Absent: respiratory distress, wheezes, rales, rhonchi, stridor Cardiovascular Exam: Present: regular rate, normal rhythm, normal heart sounds. Absent: systolic murmur, diastolic murmur, rubs, gallop, clicks GI/Abdominal exam: Present: soft, normal bowel sounds. Absent: distended, tenderness, guarding, rebound, rigid Extremities exam: Present: normal inspection, full ROM, normal capillary refill. Absent: tenderness, pedal edema, joint swelling, calf tenderness Back exam: Present: normal inspection Neurological exam: Present: alert, oriented X3, CN II-XII intact Psychiatric exam: Present: normal affect, normal mood Skin exam: Present: warm, dry, intact, normal color. Absent: rash Course Vital Signs 06/29/17 10:21 Temperature 98.0 F Pulse Rate 87 Respiratory 20 Rate Blood Pressure 116/70 O2 Sat by Pulse 100 Oximetry - Reevaluation(s) Reevaluation #1: 06/29/17 12:00 Medical records from [facility] are obtained Medical Decision Making - Medical Decision Making 31 female positive nausea vomiting. Positive flank pain. No acute cause found. Patient will be discharged home - Lab Data Result diagrams: 06/29/17 11:55 06/29/17 11:55 Lab Results 06/29/17 06/29/17 06/29/17 Range/Units 11:55 11:55 12:11 WBC 10.0 (3.8-10.6) k/uL RBC 4.39 (3.80-5.40) m/uL Hgb 11.8 (11.4-16.0) gm/dL Hct 35.9 (34.0-46.0) % MCV 81.9 (80.0-100.0) fL MCH 26.9 (25.0-35.0) pg MCHC 32.9 (31.0-37.0) g/dL RDW 14.1 (11.5-15.5) % Plt Count 443 (150-450) k/uL Neutrophils % 63 % Lymphocytes % 29 % Monocytes % 4 % Eosinophils % 2 % Basophils % 0 % Neutrophils # 6.2 (1.3-7.7) k/uL Lymphocytes # 2.9 (1.0-4.8) k/uL Monocytes # 0.4 (0-1.0) k/uL Eosinophils # 0.2 (0-0.7) k/uL Basophils # 0.0 (0-0.2) k/uL Sodium 143 (137-145) mmol/L Potassium 3.5 (3.5-5.1) mmol/L Chloride 103 (98-107) mmol/L Carbon Dioxide 27 (22-30) mmol/L Anion Gap 13 mmol/L BUN 15 (7-17) mg/dL Creatinine 0.91 (0.52-1.04) mg/dL Est GFR (CKD-EPI)AfAm >90 (>60 ml/min/1.73 sqM) Est GFR (CKD-EPI)NonAf 84 (>60 ml/min/1.73 sqM) Glucose 84 (74-99) mg/dL Calcium 9.8 (8.4-10.2) mg/dL Total Bilirubin 0.5 (0.2-1.3) mg/dL AST 25 (14-36) U/L ALT 36 (9-52) U/L Alkaline Phosphatase 61 (38-126) U/L Total Protein 7.1 (6.3-8.2) g/dL Albumin 4.3 (3.5-5.0) g/dL Amylase 79 (30-110) U/L Lipase 132 (23-300) U/L Urine HCG, Qual Not Detected (Not Detectd) Disposition Clinical Impression: Obesity, Abdominal pain Disposition: HOME SELF-CARE Condition: Good Instructions: Abdominal Pain (ED) Is patient prescribed a controlled substance at d/c from ED?: No Referrals: Dajuan Calhoun MD [Primary Care Provider] - 1-2 days
[2017-06-29 12:15] LABS: Basophils % (A) 0 %; Eosinophils # (A) 0.2 k/uL (0-0.7); Eosinophils % (A) 2 %; HCT 35.9 % (34.0-46.0); HGB 11.8 gm/dL (11.4-16.0); Lymphocytes # (A) 2.9 k/uL (1.0-4.8); Lymphocytes % (A) 29 %; MCH 26.9 pg (25.0-35.0); MCHC 32.9 g/dL (31.0-37.0); MCV 81.9 fL (80.0-100.0); Mean Platelet Volume 6.5; Monocytes # (A) 0.4 k/uL (0-1.0); Monocytes % (A) 4 %; Neutrophils # (A) 6.2 k/uL (1.3-7.7); Neutrophils % (A) 63 %; Platelet Count 443 k/uL (150-450); RBC 4.39 m/uL (3.80-5.40); RDW 14.1 % (11.5-15.5)
[2017-06-29 12:28] LABS: ALT 36 U/L (9-52); AST 25 U/L (14-36); Albumin 4.3 g/dL (3.5-5.0); Alkaline Phosphatase 61 U/L (38-126); Amylase 79 U/L (30-110); Anion Gap 13 mmol/L; Blood Urea Nitrogen 15 mg/dL (7-17); Calcium 9.8 mg/dL (8.4-10.2); Carbon Dioxide 27 mmol/L (22-30); Chloride 103 mmol/L (98-107); Glucose 84 mg/dL (74-99); Lipase 132 U/L (23-300); Potassium 3.5 mmol/L (3.5-5.1); Sodium 143 mmol/L (137-145); Total Bilirubin 0.5 mg/dL (0.2-1.3); Total Protein 7.1 g/dL (6.3-8.2)
[2017-06-29 12:51] LABS: Appearance,Urine Clear (Clear); Bacteria,Urine Rare /hpf; Bilirubin,Urine Negative (Negative); Blood,Urine Moderate (Negative); Color,Urine Yellow; Glucose,Urine (UA) Negative (Negative); Ketones,Urine Negative (Negative); Leukocyte Esterase,Urine Negative (Negative); Mucus,Urine Rare /hpf; Nitrite,Urine Negative (Negative); Protein,Urine Negative (Negative); RBC,Urine 1 /hpf (0-5); Specific Gravity,Urine 1.014 (1.001-1.035); Squamous Epithelial Cell,Urine 4 /hpf (0-4); Urobilinogen,Urine <2.0 mg/dL (<2.0); WBC,Urine 3 /hpf (0-5)
[2017-06-29 13:26] VITALS: BP 128/58; PULSE 70; RESP 18; TEMP 98
== END 2017-06-29 13:27 | disposition home or self-care (01) ==
LOC: EC 10:08
DX: R10.9 Unspecified abdominal pain (principal); E66.9 Obesity, unspecified; Z68.41 Body mass index [BMI] 40.0-44.9, adult; I10 Essential (primary) hypertension; Z86.14 Personal history of Methicillin resistant Staphylococcus aureus infection; Z87.891 Personal history of nicotine dependence; Z79.899 Other long term (current) drug therapy; Z88.1 Allergy status to other antibiotic agents
CPT/HCPCS: 36415; 80053; 82150; 83690; 85025; 81001; 81025; 87086; 99284; 96374; 96375 ×3; 96361; J2270; J2405; J1885; C9113

== ENCOUNTER → 2017-07-11 | Outpatient (CLI) | payer OTHER ==
--- NOTE | 2017-07-12 08:45 | NM ---
EXAMINATION TYPE: NM hepatobiliary w EF DATE OF EXAM: 07/11/2017 COMPARISON: Ultrasound gallbladder 05/24/2017 HISTORY: Generalized abdominal pain TECHNIQUE: After the intravenous administration of 4.6 mCi Tc 99m Mebrofenin hepatobiliary scintigrap hy is performed. Immediate images post injection. FINDINGS: There is satisfactory initial accumulation of tracer by the liver. The gallbladder is visualized wit hin 28 minutes. The small bowel activity is noted within a minutes. At one hour 8 ounces of oral en sure plus is given to mimic CCK and gallbladder ejection fraction is calculated at 63 %, in the avila l range. Therefore there is no scintigraphic evidence of cystic or common bile duct obstruction to s uggest acute cholecystitis or gallbladder dyskinesia. IMPRESSION: Exam is within normal limits.
== END | disposition home or self-care (01) ==
LOC: RADNMMAIN 14:49
PROVIDERS: ATTEND Family Medicine
DX: R10.84 Generalized abdominal pain (principal)
CPT/HCPCS: 78226; A9537

== ENCOUNTER 2017-11-30 13:50 | Emergency (ER) | payer OTHER ==
[2017-11-30 13:59] VITALS: BP 140/80; PULSE 90; RESP 20; TEMP 97.7
[2017-11-30] MEDS ORDERED: KETOROLAC 30 MG/ML 1 ML VIAL IM STA (14:38)
--- NOTE | 2017-11-30 15:14 | XR ---
EXAM TYPE: LUMBAR SPINE X RAY SERIES COMPARISON: NONE HISTORY: Pain TECHNIQUE: 3 views are submitted. FINDINGS: Alignment is anatomic. The pedicles are intact. The transverse processes are intact. There is no s pondylolysis or spondylolisthesis. Mild hypertrophic spurring anteriorly. IMPRESSION: 1. Mild hypertrophic spurring L5. Frontal view of the may be sclerosis around the SI joints which cou ld be correlated with AP pelvis series to exclude sacroiliitis.
--- NOTE | 2017-11-30 15:15 | XR ---
EXAMINATION TYPE: XR thoracic spine complete DATE OF EXAM: 11/30/2017 COMPARISON: NONE HISTORY: Pain Alignment is anatomic. There is no compression deformities. Vertebral body height and disc interspa luann are maintained. Hypertrophic spurring is noted. IMPRESSION: 1. No acute abnormality.
--- NOTE | 2017-11-30 15:38 | XR ---
EXAMINATION TYPE: XR pelvis AP view DATE OF EXAM: 11/30/2017 COMPARISON: NONE HISTORY: Pain The osseous structures are intact and the joint spaces are preserved. No acute fracture is seen. Vi sualized bowel gas pattern is nonspecific. There is sclerosis involving both SI joints suggestive of sacroiliitis. IMPRESSION: 1. No acute fracture. 2. Bilateral sacroiliitis.
--- NOTE | 2017-11-30 15:55 | ED ---
Back Pain HPI - General Chief Complaint: Back Pain/Injury Stated Complaint: right side back pain Time Seen by Provider: 11/30/17 14:22 Source: patient Limitations: no limitations - History of Present Illness Initial Comments: 32yo with cc of right sided low back pain x 3 days. Pt stated she began experiencing sciatic 3 days ago, sharp shooting pain down right leg. Pain increases with long periods of sitting or standing. Pt mentioned she cracked up upper back with caused her to have right upper back pain that started last night immediately after she tried "cracking her back". The pain increases with rotation of the thoracic region of the body or palpation of the back just inferior to the scapula. Patient denied inability to range the shoulders, muscle weakness, numbness, tingling, loss sensation of the upper trees. Patient did note some decrease in sensation of the right lower leg associated with the right leg sharp shooting pain. Patient denies fever, chills, night sweats, erythema or warmth to the hip joint. Pt has been ambulating but states it is painful to fully weight bear on the right leg, reproducing her right sided low back pain. Remainder of ROS (-). Patient denies any recent fever, chills, shortness of breath, chest pain, abdominal pain, nausea or vomiting, numbness or tingling, dysuria or hematuria, constipation or diarrhea, headaches or visual changes, or any other complaints. - Related Data Home Medications Medication Instructions Recorded Confirmed Hydrochlorothiazide [Hydrodiuril] 25 mg PO DAILY 01/15/16 06/29/17 amLODIPine [Norvasc] 10 mg PO DAILY 12/20/16 06/29/17 HYDROcodone/APAP 5-325MG [[place] 1 tab PO Q4HR PRN 02/17/17 06/29/17 5-325] Amoxicillin/Potassium Clav 1 tab PO Q12HR 06/29/17 06/29/17 [Augmentin 875-125 Tablet] Ibuprofen [Motrin] 800 mg PO TID PRN 06/29/17 06/29/17 Previous Rx's Medication Instructions Recorded Acetaminophen Tab [Tylenol Tab] 500 mg PO Q6H PRN #30 tablet 06/29/17 Naproxen [Naprosyn] 500 mg PO Q12HR PRN #30 tab 06/29/17 Allergies Allergy/AdvReac Type Severity Reaction Status Date / Time doxycycline Allergy Intermediate Rash/Hives Verified 11/30/17 13:58 Review of Systems ROS Statement: Those systems with pertinent positive or pertinent negative responses have been documented in the HPI. ROS Other: All systems not noted in ROS Statement are negative. Constitutional: Denies: fever, chills, night sweats ENT: Denies: ear pain, throat pain Respiratory: Denies: cough, dyspnea, wheezes, hemoptysis, stridor Cardiovascular: Denies: chest pain, palpitations, dyspnea on exertion Gastrointestinal: Denies: abdominal pain, vomiting Genitourinary: Denies: urgency, dysuria, frequency, hematuria Musculoskeletal: Reports: as per HPI, back pain Skin: Denies: rash Neurological: Denies: numbness, paresthesias, abnormal gait Past Medical History Past Medical History: Asthma, GERD/Reflux, Hypertension, Pneumonia Additional Past Medical History / Comment(s): SINUS PROBLEMS, Hx of Kidney infection, chronic back pain, sciatica History of Any Multi-Drug Resistant Organisms: MRSA Date of last positivie culture/infection: 2006 AT [facility] MDRO Source:: LEFT LEG Past Surgical History: Tonsillectomy Additional Past Surgical History / Comment(s): GANGLION CYST REMOVAL Right wrist , OVARIAN CYST REMOVAL (Bilateral), d&c (multiple), Breast reduction surgery Feb 2016, Past Anesthesia/Blood Transfusion Reactions: Previous Problems w/ Anesthesia Additional Past Anesthesia/Blood Transfusion Reaction / Comment(s): EARLY WAKING DURING PROCEDURE. HAS HAD BLOOD TRANFUSION-NO REACTION Past Psychological History: Anxiety Smoking Status: Former smoker Past Alcohol Use History: None Reported Past Drug Use History: None Reported - Past Family History Mother Family Medical History: Hypertension Additional Family Medical History / Comment(s): SARCOIDOSIS, BIPOLAR Father Family Medical History: Congestive Heart Failure (CHF), Diabetes Mellitus, Deep Vein Thrombosis (DVT), Hypertension, Sleep Apnea/CPAP/BIPAP General Exam - General Exam Comments Initial Comments: General: The patient is awake and alert, in no distress, and does not appear acutely ill. Eye: Pupils are equal, round and reactive to light, extra-ocular movements are intact. No nystagmus. There is normal conjunctiva bilaterally. No signs of icterus. Ears, nose, mouth and throat: There are moist mucous membranes and no oral lesions. Neck: The neck is supple, there is no tenderness or JVD. Cardiovascular: There is a regular rate and rhythm. No murmur, rub or gallop is appreciated. Respiratory: Lungs are clear to auscultation, respirations are non-labored, breath sounds are equal. No wheezes, stridor, rales, or rhonchi. Gastrointestinal: Soft, non-distended, non-tender abdomen without masses or organomegaly noted. There is no rebound or guarding present. No CVA tenderness. Bowel sounds are unremarkable. Musculoskeletal: Normal ROM at the thoracic and lumbar spine, no tenderness. No midline tenderness of the spine from cervical to lumbar. Mild tenderness of the thoracic spine 5 inches below the scapula. Strength 5/5 of the UE. Sensation intact of the UE and LE b/l. Radial and DP pulses equal bilaterally 2+ . Pt admits to most pain with hip flexion on the right side. No noted muscle weakness. Pt is able to fully range at hips, knees and ankles b/l. Complaining of pain with ROM of the right hip. Neurological: A&O x 3. CN II-XII intact, There are no obvious motor or sensory deficits. Coordination appears grossly intact. Speech is normal. Skin: Skin is warm and dry and no rashes or lesions are noted. Psychiatric: Cooperative, appropriate mood & affect, normal judgment. Limitations: no limitations Course Vital Signs 11/30/17 13:57 Temperature 97.7 F Pulse Rate 90 Respiratory 20 Rate Blood Pressure 140/80 O2 Sat by Pulse 100 Oximetry Medical Decision Making - Medical Decision Making Lumbar, thoracic XR (-). Pelvic x-ray revealed bilateral sacroiliitis. At this time I do not feel it is infectious given no history of fever, afebrile upon arrival the patient having similar complaints in the past including when she is . Symptomatic treatment was discussed with patient. She states she was given significant relief with the Toradol IM injection. Patient was given verbal instruction to follow-up with primary care provider in one to 2 days as well as orthopedic surgery for consultation. Patient agrees with plan, denies questions at this time. Return parameters discussed in detail including returning for any fever, chills. Case discussed in detail with Dr. Deras who agrees with impression and plan. pt discharged in stable condition. Disposition Clinical Impression: Bilateral sacroiliitis Disposition: HOME SELF-CARE Condition: Good Instructions: Sacroiliitis (ED) Additional Instructions: Please use over the counter tylenol and ibuprofen for pain medication as discussed. Please follow-up with family doctor in the next 2 days. Please return to emergency room if the symptoms increase or worsen or for any other concerns. Is patient prescribed a controlled substance at d/c from ED?: No Referrals: Dajuan Calhoun MD [Primary Care Provider] - 1-2 days Time of Disposition: 16:03
== END 2017-11-30 16:19 | disposition home or self-care (01) ==
LOC: EC 13:50
DX: M46.1 Sacroiliitis, not elsewhere classified (principal); I10 Essential (primary) hypertension; Z79.899 Other long term (current) drug therapy; Z88.1 Allergy status to other antibiotic agents; Z87.891 Personal history of nicotine dependence
CPT/HCPCS: 72072; 72100; 72170; 99283; 96372; J1885

== ENCOUNTER → 2018-03-21 | Outpatient (CLI) | payer OTHER ==
--- NOTE | 2018-03-21 07:37 | US ---
EXAMINATION TYPE: US pelvic complete DATE OF EXAM: 03/21/2018 COMPARISON: CT 2017, US 2016 CLINICAL HISTORY: N83.20 Ovarian cyst, R10.2 Pelvic pain,. Intermittent left pelvic pain x 1 month, g ravida 5, para 1, history of ovarian cysts removed. TECHNIQUE: . Transabdominal sonographic images of the pelvis were acquired. Date of LMP: 02/24/2018 EXAM MEASUREMENTS: Uterus: 11.8 x 5.7 x 6.3 cm Endometrial Stripe: 1.1 cm Right Ovary: 3.6 x 1.8 x 2.1 cm Left Ovary: 4.7 x 2.5 x 2.7 cm 1. Uterus: anteverted, enlarged, heterogeneous 2. Endometrium: wnl 3. Right Ovary: wnl 4. Left Ovary: wnl 5. Bilateral Adnexa: wnl 6. Posterior cul-de-sac: wnl IMPRESSION: 1. Uterus is enlarged and heterogenous and this may reflect underlying leiomyomatous change. Correlat e clinically.
--- NOTE | 2018-03-21 08:59 | MM ---
Reason for exam: additional evaluation requested from prior study. Last mammogram was performed 1 year and 1 month ago. History: Benign US biopsy breast VAD RT of the right breast, February 17, 2017. Reductions of both breasts, February 2016. Took hormonal contraceptives for 3 years beginning at age 13. Physical Findings: Nurse Summary: 3cm nodule in the right breast at 10 o'clock (nurse terri). MG Diagnostic Mammo RT w CAD CC and MLO view(s) were taken of the right breast. Prior study comparison: February 17, 2017, right breast MG diagnostic mammo RT wo CAD. February 07, 2017, bilateral MG diagnostic mammo w CAD SHIMA. There are scattered fibroglandular densities. Stable calcifications. Previous mammotome biopsy in the right breast. Focal asymmetry upper outer quadrant right breast sampled previously. These results were verbally communicated with the patient and result sheet given to the patient on 03/21/18. ASSESSMENT: Benign, BI-RAD 2 RECOMMENDATION: Follow-up diagnostic mammogram of the right breast in 1 year.
== END | disposition home or self-care (01) ==
LOC: RADUSWWP 07:03
PROVIDERS: ATTEND Family Medicine
DX: N63.10 Unspecified lump in the right breast, unspecified quadrant (principal); N85.2 Hypertrophy of uterus
CPT/HCPCS: 76856; 77065

== ENCOUNTER 2018-11-13 20:54 | Emergency (ER) | payer OTHER ==
[2018-11-13 21:36] VITALS: BP 125/86; PULSE 82; RESP 18; TEMP 97.9
[2018-11-13] MEDS ORDERED: KETOROLAC 60 MG/2 ML VIAL IM STA (22:27)
--- NOTE | 2018-11-13 23:02 | XR ---
EXAMINATION TYPE: XR chest 2V DATE OF EXAM: 11/13/2018 COMPARISON: January 15, 2016 HISTORY: Chest pain TECHNIQUE: Frontal and lateral views of the chest are obtained. FINDINGS: Heart and mediastinum are normal. Lungs are clear. Diaphragm is normal. Bony thorax appear s normal. There is no sign of pneumothorax. IMPRESSION: Normal chest. No change.
--- NOTE | 2018-11-13 23:02 | XR ---
EXAMINATION TYPE: XR pelvis AP view DATE OF EXAM: 11/13/2018 COMPARISON: 11/30/2017 HISTORY: Pain TECHNIQUE: Single view FINDINGS: Pelvic ring is intact. Proximal femurs are intact. Sacroiliac joints appear normal. Hip nayeli nt spaces are normal. IMPRESSION: Normal exam. No fracture seen.
--- NOTE | 2018-11-13 23:03 | XR ---
EXAMINATION TYPE: XR shoulder complete RT DATE OF EXAM: 11/13/2018 COMPARISON: NONE HISTORY: Pain TECHNIQUE: 3 views FINDINGS: I see no fracture nor dislocation. Joint spaces are normal. There are no pathologic calcifi cations. IMPRESSION: Negative right shoulder exam.
--- NOTE | 2018-11-13 23:19 | ED ---
General Adult HPI - General Chief complaint: Fall Stated complaint: Fall, leg, knee & side pain Time Seen by Provider: 11/13/18 22:18 Source: patient, RN notes reviewed, old records reviewed Mode of arrival: ambulatory Limitations: no limitations - History of Present Illness Initial comments: 33-year-old female patient with a chief complaint of fall. Patient reports that she was at the top of the stairs, steps on her child's lego, stumbled, grabbed onto a railing but ultimately tumbled down approximately 12 stairs. Denies any trauma to head or neck. Denies any loss of consciousness. Denies the use of blood thinners. She complaint is right shoulder pain, right rib pain. Patient is ambulatory without difficulty. Denies any other complaints. Systemic: Pt denies fatigue, fever/chills, rash. Pt denies weakness, night sweats, weight loss. Neuro: Pt denies headache, visual disturbances, syncope or pre-syncope. HEENT: Pt denies ocular discharge or irritation, otalgia, rhinorrhea, pharyngitis or notable lymphadenopathy. Cardiopulmonary: Pt denies chest pain, SOB, heart palpitations, dyspnea on exertion. Abdominal/GI: Pt denies abdominal pain, n/v/d. : Pt denies dysuria, burning w/ urination, frequency/urgency. Denies new onset urinary or bowel incontinence. MSK: Pt denies myalgia, loss of strength or function in extremities. Neuro: Pt denies new onset weakness, paresthesias. - Related Data Home Medications Medication Instructions Recorded Confirmed Hydrochlorothiazide [Hydrodiuril] 25 mg PO DAILY 01/15/16 11/13/18 amLODIPine [Norvasc] 10 mg PO DAILY 12/20/16 11/13/18 HYDROcodone/APAP 5-325MG [[place] 1 tab PO Q4HR PRN 02/17/17 11/13/18 5-325] Ibuprofen [Motrin] 800 mg PO TID PRN 06/29/17 11/13/18 Multivit-Minerals/Folic Acid 150 mcg PO DAILY 11/13/18 11/13/18 [Centrum Multigummies] Allergies Allergy/AdvReac Type Severity Reaction Status Date / Time doxycycline Allergy Intermediate Rash/Hives Verified 11/13/18 22:11 Review of Systems ROS Statement: Those systems with pertinent positive or pertinent negative responses have been documented in the HPI. ROS Other: All systems not noted in ROS Statement are negative. Past Medical History Past Medical History: Asthma, GERD/Reflux, Hypertension, Pneumonia Additional Past Medical History / Comment(s): SINUS PROBLEMS, Hx of Kidney infe ction, chronic back pain, sciatica History of Any Multi-Drug Resistant Organisms: MRSA Date of last positivie culture/infection: 2006 AT [facility] MDRO Source:: LEFT LEG Past Surgical History: Tonsillectomy Additional Past Surgical History / Comment(s): GANGLION CYST REMOVAL Right wrist, OVARIAN CYST REMOVAL (Bilateral), d&c (multiple), Breast reduction surgery Feb 2016, Past Anesthesia/Blood Transfusion Reactions: Previous Problems w/ Anesthesia Additional Past Anesthesia/Blood Transfusion Reaction / Comment(s): EARLY WAKING DURING PROCEDURE. HAS HAD BLOOD TRANFUSION-NO REACTION Past Psychological History: Anxiety Smoking Status: Former smoker Past Alcohol Use History: Occasional Past Drug Use History: None Reported - Past Family History Mother Family Medical History: Hypertension Additional Family Medical History / Comment(s): SARCOIDOSIS, BIPOLAR Father Family Medical History: Congestive Heart Failure (CHF), Diabetes Mellitus, Deep Vein Thrombosis (DVT), Hypertension, Sleep Apnea/CPAP/BIPAP General Exam - General Exam Comments Initial Comments: Constitutional: NAD, AOX3, Pt has pleasant affect. HEENT: NC/AT, trachea midline, neck supple, no lymphadenopathy. Posterior pharynx non erythematous, without exudates. External ears appear normal, without discharge. Mucous membranes moist. Eyes PERRLA, EOM intact. There is no scleral icterus. No pallor noted. Cardiopulmonary: RRR, no murmurs, rubs or gallops, no JVD noted. Lungs CTAB in anterior and posterior howard. No peripheral edema. Abdominal exam: Abdomen soft and non-distended. Abdomen non-tender to palpation in all 4 quadrants. Bowel sounds active in LLQ. No hepatosplenomegaly. No ecchymosis Neuro: CN II-XII intact. No nuchal rigidity. No raccon eyes, no johnson sign, no hemotympanum. No cervical spinal tenderness. MSK: Right shoulder mild tender palpation anterior aspect. Range of motion is intact. Right rib region approximately 9 bilaterally mildly tender to palpation. No ecchymoses. No crepitus. No other areas of tenderness. No posterior calf tenderness bilaterally, homans sign negative bilaterally. Posterior tibialis and radial pulse +2 bilaterally. Sensation intact in upper and lower extremities. Full active ROM in upper and lower extremities, 5/5 stregnth. Limitations: no limitations Course Vital Signs 11/13/18 21:33 Temperature 97.9 F Pulse Rate 82 Respiratory 18 Rate Blood Pressure 125/86 O2 Sat by Pulse 99 Oximetry Medical Decision Making - Medical Decision Making 33-year-old female patient with a chief complaint of fall. Patient reports that she was at the top of the stairs, steps on her child's lego, stumbled, grabbed onto a railing but ultimately tumbled down approximately 12 stairs. Denies any trauma to head or neck. Denies any loss of consciousness. Denies the use of blood thinners. She complaint is right shoulder pain, right rib pain. Patient is ambulatory without difficulty. Denies any other complaints. Pt VSS, afebrile . Physical exam displayed: CN II-XII intact. No nuchal rigidity. No raccon eyes, no johnson sign, no hemotympanum. No cervical spinal tenderness. Right shoulder mild tender palpation anterior aspect. Range of motion is intact. Right rib region approximately 9 bilaterally mildly tender to palpation. No ecchymoses. No crepitus. No other areas of tenderness. Patient is ambulatory without difficulty. Plain films of chest x-ray, right shoulder, AP pelvis status with acute pathology. Patient to begin to complain of some muscle spasms and right paralumbar region. Patient be discharged with muscle relaxer. Patient follow with primary care brother. Will be given orthopedic consult symptoms persists or if new all. Return precautions discussed. Case discussed with Dr. Chauhan. Disposition Clinical Impression: Fall Disposition: HOME SELF-CARE Condition: Stable Instructions (If sedation given, give patient instructions): Fall Prevention (ED) Additional Instructions: Patient to adhere to previously discussed treatment plan and will take medication(s) as directed. Patient to follow up with PCP in 1-2 days. Patient to return to ED if symptoms do not improve. Follow-up with primary care provider. Return to ER condition worsens. Follow up with orthopedic consult if pain persists or if new symptoms develop. Is patient prescribed a controlled substance at d/c from ED?: No Referrals: Dajuan Calhoun MD [Primary Care Provider] - 1-2 days Eliu Coelho MD [STAFF PHYSICIAN] - 1-2 days
== END 2018-11-13 23:28 | disposition home or self-care (01) ==
LOC: EC 20:54
DX: M62.830 Muscle spasm of back (principal); S89.90XA Unspecified injury of unspecified lower leg, initial encounter; M25.511 Pain in right shoulder; R07.81 Pleurodynia; I10 Essential (primary) hypertension; Z79.899 Other long term (current) drug therapy; Z88.1 Allergy status to other antibiotic agents; Z87.891 Personal history of nicotine dependence; Z86.14 Personal history of Methicillin resistant Staphylococcus aureus infection; W10.9XXA Fall (on) (from) unspecified stairs and steps, initial encounter; Y93.89 Activity, other specified
CPT/HCPCS: 72170; 73030; 71046; 96372; 99284; J1885

== ENCOUNTER 2019-02-07 14:04 | Emergency (ER) | payer OTHER ==
[2019-02-07 14:19] VITALS: RESP 16
[2019-02-07] MEDS ORDERED: ONDANSETRON 4 MG/2 ML VIAL IVP STA (15:21)
[2019-02-07] MEDS ORDERED: SODIUM CHLORIDE 0.9% 1,000 ML IV STA (15:21)
[2019-02-07] MEDS ORDERED: FAMOTIDINE 20 MG/2 ML VIAL IV STA (15:22)
--- NOTE | 2019-02-07 15:25 | ED ---
General Adult HPI - General Chief complaint: Nausea/Vomiting/Diarrhea Stated complaint: esophagus pain, Time Seen by Provider: 02/07/19 14:33 Source: patient, RN notes reviewed Mode of arrival: ambulatory Limitations: no limitations - History of Present Illness Initial comments: Patient is a pleasant 33-year-old female presenting to the emergency Department with esophageal burning. Patient states a couple of days ago she vomited. Intensively more than 4 times. Patient attributes this to food poisoning patient states she also had several episodes of diarrhea. Patient states this is now resolved however she has burning in the epigastric region radiating up to the chest. Patient states symptoms are significantly worse with solid food intake. Symptoms are slightly worse with drinking liquids. No history of similar symptoms previously. - Related Data Home Medications Medication Instructions Recorded Confirmed Hydrochlorothiazide [Hydrodiuril] 25 mg PO DAILY 01/15/16 11/13/18 amLODIPine [Norvasc] 10 mg PO DAILY 12/20/16 11/13/18 HYDROcodone/APAP 5-325MG [[place] 1 tab PO Q4HR PRN 02/17/17 11/13/18 5-325] Ibuprofen [Motrin] 800 mg PO TID PRN 06/29/17 11/13/18 Multivit-Minerals/Folic Acid 150 mcg PO DAILY 11/13/18 11/13/18 [Centrum Multigummies] Previous Rx's Medication Instructions Recorded Cyclobenzaprine [Flexeril] 1 - 2 tab PO TID #20 tablet 11/13/18 Famotidine [Pepcid] 20 mg PO BID #30 tablet 02/07/19 Metoclopramide HCl [Reglan] 10 mg PO Q6HR PRN #15 tablet 02/07/19 Sucralfate [Carafate] 10 ml PO ACHS #100 ml 02/07/19 Allergies Allergy/AdvReac Type Severity Reaction Status Date / Time doxycycline Allergy Intermediate Rash/Hives Verified 02/07/19 14:19 Review of Systems ROS Statement: Those systems with pertinent positive or pertinent negative responses have been documented in the HPI. ROS Other: All systems not noted in ROS Statement are negative. Constitutional: Denies: fever Eyes: Denies: eye pain ENT: Denies: ear pain Respiratory: Denies: cough, dyspnea Cardiovascular: Reports: as per HPI Endocrine: Denies: fatigue Gastrointestinal: Reports: as per HPI, nausea Genitourinary: Denies: dysuria Musculoskeletal: Denies: back pain Skin: Denies: rash Neurological: Denies: weakness Past Medical History Past Medical History: Asthma, GERD/Reflux, Hypertension, Pneumonia Additional Past Medical History / Comment(s): SINUS PROBLEMS, Hx of Kidney infection, chronic back pain, sciatica History of Any Multi-Drug Resistant Organisms: MRSA Date of last positivie culture/infection: [address] [facility] MDRO Source:: LEFT LEG Past Surgical History: Tonsillectomy Additional Past Surgical History / Comment(s): GANGLION CYST REMOVAL Right wrist, OVARIAN CYST REMOVAL (Bilateral), d&c (multiple), Breast reduction surgery Feb 2016, Past Anesthesia/Blood Transfusion Reactions: Previous Problems w/ Anesthesia Additional Past Anesthesia/Blood Transfusion Reaction / Comment(s): EARLY WAKING DURING PROCEDURE. HAS HAD BLOOD TRANFUSION-NO REACTION Past Psychological History: Anxiety Smoking Status: Former smoker Past Alcohol Use History: Occasional Past Drug Use History: None Reported - Past Family History Mother Family Medical History: Hypertension Additional Family Medical History / Comment(s): SARCOIDOSIS, BIPOLAR Father Family Medical History: Congestive Heart Failure (CHF), Diabetes Mellitus, Deep Vein Thrombosis (DVT), Hypertension, Sleep Apnea/CPAP/BIPAP General Exam Limitations: no limitations General appearance: alert, in no apparent distress Head exam: Present: normocephalic Eye exam: Present: normal appearance, PERRL ENT exam: Present: normal oropharynx Neck exam: Present: normal inspection Respiratory exam: Present: normal lung sounds bilaterally. Absent: chest wall tenderness Cardiovascular Exam: Present: regular rate, normal rhythm Expanded Peripheral pulses: 2+: Radial (R), Radial (L), Posterior Tibialis (R), Posterior Tibialis (L), Dorsalis Pedis (R), Dorsalis Pedis (L) GI/Abdominal exam: Present: soft, tenderness (Mild epigastric tenderness to palpation). Absent: distended, guarding, rebound, rigid Extremities exam: Present: normal inspection Neurological exam: Present: alert Psychiatric exam: Present: normal affect, normal mood Skin exam: Present: normal color Course Vital Signs 02/07/19 14:16 Temperature 97.8 F Pulse Rate 75 Respiratory 16 Rate Blood Pressure 127/79 O2 Sat by Pulse 99 Oximetry EKG Findings - EKG Comments: EKG Findings:: Normal sinus rhythm 81. MS 174. QRS 98. QT 420. QTc 47. Normal axis. Normal QRS. No acute ST change. Medical Decision Making - Medical Decision Making Patient reevaluated and resting comfortably in bed. Patient updated on results and plan. Patient states she did get significant relief with medications however symptoms or signs to return little bit. Patient is receptive to GI cocktail and discharge. Patient denies to return if symptoms worsen. - Lab Data Result diagrams: 02/07/19 15:37 02/07/19 15:37 Lab Results 02/07/19 02/07/19 02/07/19 Range/Units 15:37 15:37 15:37 WBC 8.6 (3.8-10.6) k/uL RBC 4.47 (3.80-5.40) m/uL Hgb 12.7 (11.4-16.0) gm/dL Hct 37.3 (34.0-46.0) % MCV 83.4 (80.0-100.0) fL MCH 28.4 (25.0-35.0) pg MCHC 34.0 (31.0-37.0) g/dL RDW 13.1 (11.5-15.5) % Plt Count 383 (150-450) k/uL Neutrophils % 56 % Lymphocytes % 30 % Monocytes % 7 % Eosinophils % 3 % Basophils % 0 % Neutrophils # 4.8 (1.3-7.7) k/uL Lymphocytes # 2.6 (1.0-4.8) k/uL Monocytes # 0.6 (0-1.0) k/uL Eosinophils # 0.2 (0-0.7) k/uL Basophils # 0.0 (0-0.2) k/uL Sodium 138 (137-145) mmol/L Potassium 3.1 L (3.5-5.1) mmol/L Chloride 101 (98-107) mmol/L Carbon Dioxide 27 (22-30) mmol/L Anion Gap 10 mmol/L BUN 12 (7-17) mg/dL Creatinine 1.07 H (0.52-1.04) mg/dL Est GFR (CKD-EPI)AfAm 79 (>60 ml/min/1.73 sqM) Est GFR (CKD-EPI)NonAf 69 (>60 ml/min/1.73 sqM) Glucose 97 (74-99) mg/dL Calcium 9.7 (8.4-10.2) mg/dL Total Bilirubin 0.5 (0.2-1.3) mg/dL AST 22 (14-36) U/L ALT 18 (4-34) U/L Alkaline Phosphatase 62 (38-126) U/L Troponin I <0.012 (0.000-0.034) ng/mL Total Protein 7.3 (6.3-8.2) g/dL Albumin 4.3 (3.5-5.0) g/dL Amylase 62 (30-110) U/L Lipase 133 (23-300) U/L - Radiology Data Radiology results: image reviewed (Chest and abdominal x-ray revealed no acute process) Disposition Clinical Impression: Epigastric pain Disposition: HOME SELF-CARE Condition: Stable Instructions (If sedation given, give patient instructions): Abdominal Pain (ED) Additional Instructions: Please follow-up with primary care physician in the next day or 2 for recheck. Return for increased pain, vomiting, not tolerating oral intake, worsening symptoms or any other concerns. [id number] Pepcid. Prescription sent to [facility] Prescriptions: Sucralfate [Carafate] 10 ml PO ACHS #100 ml Famotidine [Pepcid] 20 mg PO BID #30 tablet Metoclopramide HCl [Reglan] 10 mg PO Q6HR PRN #15 tablet PRN Reason: Nausea Is patient prescribed a controlled substance at d/c from ED?: No Referrals: Dajuan Calhoun MD [Primary Care Provider] - 1-2 days Time of Disposition: 16:52
[2019-02-07 15:46] LABS: Basophils % (A) 0 %; Eosinophils # (A) 0.2 k/uL (0-0.7); Eosinophils % (A) 3 %; HCT 37.3 % (34.0-46.0); HGB 12.7 gm/dL (11.4-16.0); Lymphocytes # (A) 2.6 k/uL (1.0-4.8); Lymphocytes % (A) 30 %; MCH 28.4 pg (25.0-35.0); MCV 83.4 fL (80.0-100.0); Mean Platelet Volume 7.3; Monocytes # (A) 0.6 k/uL (0-1.0); Monocytes % (A) 7 %; Neutrophils # (A) 4.8 k/uL (1.3-7.7); Neutrophils % (A) 56 %; Platelet Count 383 k/uL (150-450); RBC 4.47 m/uL (3.80-5.40); RDW 13.1 % (11.5-15.5); WBC 8.6 k/uL (3.8-10.6)
[2019-02-07 15:53] LABS: Albumin 4.3 g/dL (3.5-5.0); Calcium 9.7 mg/dL (8.4-10.2); Potassium 3.1 mmol/L (3.5-5.1); Total Bilirubin 0.5 mg/dL (0.2-1.3); Total Protein 7.3 g/dL (6.3-8.2)
--- NOTE | 2019-02-07 16:23 | XR ---
EXAMINATION TYPE: XR chest 2V DATE OF EXAM: 02/07/2019 COMPARISON: 11/13/2018 HISTORY: 33-year-old female with pain and cough TECHNIQUE: PA and lateral views FINDINGS: Heart normal size. Aorta and pulmonary vasculature within normal limits. No consolidation or pleural effusion. IMPRESSION: No acute cardiopulmonary process.
--- NOTE | 2019-02-07 16:24 | XR ---
EXAMINATION TYPE: XR KUB DATE OF EXAM: 02/07/2019 CLINICAL DATA: 33-year-old female with pain, nausea, vomiting, and diarrhea, PHH COMPARISON: None FINDINGS: Lung bases are clear. No evidence for free intraperitoneal air. No dilated small bowel or air-fluid levels. Some scattered air is seen throughout the colon. Only mil d scattered stool. No suspicious calcifications identified. IMPRESSION: Mild scattered stool. No evidence for free air or bowel obstruction.
[2019-02-07] MEDS ORDERED: MAG HYDROX/AL HYDROX/SIMETH 30 ML, HYOSCYAMINE ELIXIR 10 ML, LIDOCAINE VISCOUS 2% 10 ML PO STA ×3 (16:46)
[2019-02-07 17:26] VITALS: BP 164/98; PULSE 87; TEMP 98
== END 2019-02-07 17:25 | disposition home or self-care (01) ==
LOC: EC 14:04
DX: R10.13 Epigastric pain (principal); R07.89 Other chest pain; I10 Essential (primary) hypertension; Z87.891 Personal history of nicotine dependence; Z88.1 Allergy status to other antibiotic agents; Z79.899 Other long term (current) drug therapy; Z86.14 Personal history of Methicillin resistant Staphylococcus aureus infection; Z87.19 Personal history of other diseases of the digestive system
CPT/HCPCS: 36415; 93005; 80053; 82150; 83690; 84484; 85025; 71046; 74018; 99284; 96374; 96375; 96361 ×2; J2405

== ENCOUNTER 2020-02-20 20:16 | Emergency (ER) | payer OTHER ==
[2020-02-20] MEDS ORDERED: PHENAZOPYRIDINE 200 MG TAB PO STA (20:36)
--- NOTE | 2020-02-20 20:39 | ED ---
Abdominal Pain HPI - General Chief Complaint: Abdominal Pain Stated Complaint: Bladder infection Time Seen by Provider: 02/20/20 20:27 Source: patient Mode of arrival: ambulatory Limitations: no limitations - History of Present Illness Initial Comments: 34-year-old female patient presents to the emergency department today for evaluation of suprapubic abdominal burning and cramping. States she is also having urinary frequency, hematuria, and dysuria. States symptoms started today. She denies any abnormal vaginal bleeding or discharge. Denies fever or chills. Denies nausea or vomiting. Denies any chance of . States that she had been sexually inactive for quite some time and then started to have intercourse again a couple of days ago. Patient denies any recent rash, cough, shortness of breath, chest pain, diarrhea, constipation, back pain, numbness, tingling, dizziness, weakness, headache, visual changes, or any other complaints. - Related Data Home Medications Medication Instructions Recorded Confirmed hydroCHLOROthiazide [Hydrodiuril] 25 mg PO DAILY 01/15/16 02/20/20 amLODIPine [Norvasc] 10 mg PO DAILY 12/20/16 02/20/20 Albuterol Sulfate [Proair Hfa] 2 puff INHALATION RT-Q4H PRN 02/20/20 02/20/20 Ergocalciferol (Vitamin D2) 1,250 mcg PO TH 02/20/20 02/20/20 [Drisdol (50,000 units)] Fluticasone/Salmeterol 1 puff INHALATION RT-BID 02/20/20 02/20/20 [Fluticasone-Salmeterol 113-14] Ibuprofen [Motrin] 800 mg PO QID PRN 02/20/20 02/20/20 Previous Rx's Medication Instructions Recorded Cephalexin [Keflex] 500 mg PO Q6H #28 cap 02/20/20 Fluconazole [Diflucan] 150 mg PO ONCE #2 tab 02/20/20 Allergies Allergy/AdvReac Type Severity Reaction Status Date / Time doxycycline Allergy Intermediate Rash/Hives Verified 02/20/20 21:33 Review of Systems ROS Statement: Those systems with pertinent positive or pertinent negative responses have been documented in the HPI. ROS Other: All systems not noted in ROS Statement are negative. Past Medical History Past Medical History: Asthma, GERD/Reflux, Hypertension, Pneumonia Additional Past Medical History / Comment(s): SINUS PROBLEMS, Hx of Kidney infection, chronic back pain, sciatica History of Any Multi-Drug Resistant Organisms: MRSA Date of last positivie culture/infection: 2006 AT [facility] MDRO Source:: LEFT LEG Past Surgical History: Tonsillectomy Additional Past Surgical History / Comment(s): GANGLION CYST REMOVAL Right wrist, OVARIAN CYST REMOVAL (Bilateral), d&c (multiple), Breast reduction surgery Feb 2016, Past Anesthesia/Blood Transfusion Reactions: Previous Problems w/ Anesthesia Additional Past Anesthesia/Blood Transfusion Reaction / Comment(s): EARLY WAKING DURING PROCEDURE. HAS HAD BLOOD TRANFUSION-NO REACTION Past Psychological History: Anxiety Smoking Status: Never smoker Past Alcohol Use History: Occasional Past Drug Use History: None Reported - Past Family History Mother Family Medical History: Hypertension Additional Family Medical History / Comment(s): SARCOIDOSIS, BIPOLAR Father Family Medical History: Congestive Heart Failure (CHF), Diabetes Mellitus, Deep Vein Thrombosis (DVT), Hypertension, Sleep Apnea/CPAP/BIPAP General Exam Limitations: no limitations General appearance: alert, in no apparent distress, other (Physical well- developed, well-nourished adult female patient in no acute distress. Vital signs upon presentation are temperature 98.0F, pulse 95, respirations 20, blood pressure 191/103, pulse ox 100% on room air.) Respiratory exam: Present: normal lung sounds bilaterally. Absent: respiratory distress, wheezes, rales, rhonchi, stridor Cardiovascular Exam: Present: regular rate, normal rhythm, normal heart sounds. Absent: systolic murmur, diastolic murmur, rubs, gallop, clicks GI/Abdominal exam: Present: soft, tenderness (Suprapubic), normal bowel sounds. Absent: distended, guarding, rebound, rigid Back exam: Absent: CVA tenderness (R), CVA tenderness (L) Neurological exam: Present: alert, oriented X3, CN II-XII intact Psychiatric exam: Present: normal affect, normal mood Skin exam: Present: warm, dry, intact, normal color. Absent: rash Course Vital Signs 02/20/20 02/20/20 20:22 21:14 Temperature 98.0 F 98.4 F Pulse Rate 95 83 Respiratory 20 19 Rate Blood Pressure 191/103 146/74 O2 Sat by Pulse 100 97 Oximetry Medical Decision Making - Medical Decision Making 34-year-old female patient presented to the emergency department today for evaluation of suprapubic pain, hematuria, dysuria, urinary frequency. Symptoms started today. Physical examination reveals no CVA tenderness. Mild suprapubic discomfort. Urinalysis was obtained and showed evidence for urinary tract infection. Patient denies concern for sexually transmitted infection. Denies concern for though test was negative. We will start Keflex for urinary tract infection. Give Pyridium for discomfort. She is instructed to increase fluids. She is instructed to follow-up with the primary care physician for recheck in 1-2 days. Return parameters were discussed in detail. She verbalizes understanding and agrees with this plan. - Lab Data Lab Results 02/20/20 02/20/20 Range/Units 20:32 20:32 Urine Color Yellow Urine Appearance Cloudy H (Clear) Urine pH 7.0 (5.0-8.0) Ur Specific [place] 1.020 (1.001-1.035) Urine Protein 2+ H (Negative) Urine Glucose (UA) Negative (Negative) Urine Ketones Negative (Negative) Urine Blood Large H (Negative) Urine Nitrite Negative (Negative) Urine Bilirubin Negative (Negative) Urine Urobilinogen <2.0 (<2.0) mg/dL Ur Leukocyte Esterase Large H (Negative) Urine RBC >182 H (0-5) /hpf Urine WBC >182 H (0-5) /hpf Urine WBC Clumps Many H (None) /hpf Ur Squamous Epith Cells 4 (0-4) /hpf Urine Mucus Few H (None) /hpf Urine HCG, Qual Not Detected (Not Detectd) Disposition Clinical Impression: Urinary tract infection Disposition: HOME SELF-CARE Condition: Good Instructions (If sedation given, give patient instructions): Urinary Tract Infection in Women (ED) Additional Instructions: Take medications as directed. Complete antibiotic prescription in full. Use Diflucan if you develop a yeast infection after use of antibiotics. Increase fluids especially water. Follow-up with your primary care physician for recheck in 1-2 days. Return to the emergency department for any new, worsening, or concerning symptoms. Prescriptions: Fluconazole [Diflucan] 150 mg PO ONCE #2 tab Cephalexin [Keflex] 500 mg PO Q6H #28 cap Is patient prescribed a controlled substance at d/c from ED?: No Referrals: Dajuan Calhoun MD [Primary Care Provider] - 1-2 days Time of Disposition: 21:25
[2020-02-20 20:51] LABS: Appearance,Urine Cloudy (Clear); Bilirubin,Urine Negative (Negative); Blood,Urine Large (Negative); Color,Urine Yellow; Glucose,Urine (UA) Negative (Negative); Ketones,Urine Negative (Negative); Leukocyte Esterase,Urine Large (Negative); Mucus,Urine Few /hpf; Nitrite,Urine Negative (Negative); Protein,Urine 2+ (Negative); RBC,Urine >182 /hpf (0-5); Squamous Epithelial Cell,Urine 4 /hpf (0-4); Urobilinogen,Urine <2.0 mg/dL (<2.0); WBC,Urine >182 /hpf (0-5)
[2020-02-20 21:15] VITALS: BP 146/74; PULSE 83; RESP 19; TEMP 98.4
[2020-02-20] MEDS ORDERED: CEPHALEXIN 500MG STARTER PACK 4 CAP BTL PO STA (21:23)
== END 2020-02-20 21:50 | disposition home or self-care (01) ==
LOC: EC 20:16
DX: N39.0 Urinary tract infection, site not specified (principal); J45.909 Unspecified asthma, uncomplicated; I10 Essential (primary) hypertension; Z79.51 Long term (current) use of inhaled steroids; Z79.899 Other long term (current) drug therapy; Z88.1 Allergy status to other antibiotic agents
CPT/HCPCS: 81001; 81025; 87086; 99284

== ENCOUNTER 2020-02-28 16:33 | Emergency (ER) | payer OTHER ==
[2020-02-28 16:42] VITALS: BP 123/74; TEMP 99.1
[2020-02-28] MEDS ORDERED: IPRATROPIUM 0.5 MG/2.5 ML NEBU INHALATION STA (17:00)
[2020-02-28] MEDS ORDERED: ALBUTEROL NEBULIZED 2.5 MG/3 ML INHALATION STA (17:00)
--- NOTE | 2020-02-28 17:15 | ED ---
General Adult HPI - General Chief complaint: Shortness of Breath Stated complaint: SOB Time Seen by Provider: 02/28/20 16:49 Source: patient Mode of arrival: wheelchair Limitations: no limitations - History of Present Illness Initial comments: Dictation was produced using [employer] dictation software. please excuse any grammatical, word or spelling errors. This patient was cared for during a federal and state declared state of emergency secondary to Covid 19 Chief Complaint: 34-year-old -German female with intermittent asthma presents with cough 4 days History of Present Illness: 34-year-old female she has past medical history of asthma, hypertension pneumonia. She states for the last 3-4 days she's been developing a nonproductive cough. She is feeling like she is wheezing. She has history of asthma and takes asthma inhaler medications. She states that her inhalers have not really been improving her symptoms. Denies any chest pain or chest pressure. Patient states that because of her symptoms she is having w orsening shortness of breath even when form of heart activities of daily living. She feels as though she can't take a complete deep breath. She is not sure if she is has coronavirus. She denies any obvious exposures to anybody with coronavirus. The ROS documented in this emergency department record has been reviewed and confirmed by me. Those systems with pertinent positive or negative responses have been documented in the HPI. All other systems are other negative and/or noncontributory. PHYSICAL EXAM: General Impression: Alert and oriented x3, not in acute distress HEENT: Normocephalic atraumatic, extra-ocular movements intact, pupils equal and reactive to light bilaterally, mucous membranes moist. Cardiovascular: Heart regular rate and rhythm Chest: Able to complete full sentences, no retractions, no tachypnea, diffuse wheezing, coughing Abdomen: abdomen soft, non-tender, non-distended, no organomegaly Musculoskeletal: Pulses present and equal in all extremities, no peripheral edema Motor: no focal deficits noted Neurological: CN II-XII grossly intact, no focal motor or sensory deficits noted Skin: Intact with no visualized rashes Psych: Normal affect and mood ED course: 34-year-old female presents to emergency department for chief complaint of shortness breath and cough. She has history of intermittent asthma. Vital signs upon arrival shows temperature of 99.1, heart rate 104, rest of vital signs within acceptable limits. Laboratory evaluation obtained. CBC, metabolic panel is unremarkable. Urine hCG is negative. Coronavirus test is positive. Chest x-ray shows no acute abnormalities. Patient was observed in emergency Department with improvement of symptoms. Patient nontoxic she is counseled on return precautions come back to the emergency department in light of positive coronavirus test. Patient is discharged with steroids. She is told to use her inhaler every 4-6 hours for the next 3 days. Patient is agreeable disposition. - Related Data Home Medications Medication Instructions Recorded Confirmed hydroCHLOROthiazide [Hydrodiuril] 25 mg PO DAILY 01/15/16 02/28/20 amLODIPine [Norvasc] 10 mg PO DAILY 12/20/16 02/28/20 Albuterol Sulfate [Proair Hfa] 2 puff INHALATION RT-Q4H PRN 02/20/20 02/28/20 Fluticasone/Salmeterol 1 puff INHALATION RT-DAILY 02/20/20 02/28/20 [Fluticasone-Salmeterol 113-14] HYDROcodone/APAP 5-325MG [[place] 1 tab PO TID PRN 02/28/20 02/28/20 5-325] Previous Rx's Medication Instructions Recorded Dexamethasone [Decadron] 6 mg PO DAILY 5 Days #5 tablet 02/28/20 Allergies Allergy/AdvReac Type Severity Reaction Status Date / Time doxycycline Allergy Intermediate Rash/Hives Verified 02/28/20 17:47 Review of Systems ROS Statement: Those systems with pertinent positive or pertinent negative responses have been documented in the HPI. ROS Other: All systems not noted in ROS Statement are negative. Past Medical History Past Medical History: Asthma, GERD/Reflux, Hypertension, Pneumonia Additional Past Medical History / Comment(s): SINUS PROBLEMS, Hx of Kidney infection, chronic back pain, sciatica History of Any Multi-Drug Resistant Organisms: MRSA Date of last positivie culture/infection: 02/20/20 ESBL 2006 MRSA MDRO Source:: ESBL URINE MRSA LEGAT [facility] Past Surgical History: Tonsillectomy Additional Past Surgical History / Comment(s): GANGLION CYST REMOVAL Right wrist, OVARIAN CYST REMOVAL (Bilateral), d&c (multiple), Breast reduction surgery Feb 2016, Past Anesthesia/Blood Transfusion Reactions: Previous Problems w/ Anesthesia Additional Past Anesthesia/Blood Transfusion Reaction / Comment(s): EARLY WAKING DURING PROCEDURE. HAS HAD BLOOD TRANFUSION-NO REACTION Past Psychological History: Anxiety Smoking Status: Never smoker Past Alcohol Use History: Occasional Past Drug Use History: None Reported - Past Family History Mother Family Medical History: Hypertension Additional Family Medical History / Comment(s): SARCOIDOSIS, BIPOLAR Father Family Medical History: Congestive Heart Failure (CHF), Diabetes Mellitus, Deep Vein Thrombosis (DVT), Hypertension, Sleep Apnea/CPAP/BIPAP General Exam Limitations: no limitations Course Vital Signs 02/28/20 02/28/20 02/28/20 16:40 17:16 17:22 Temperature 99.1 F Pulse Rate 104 H 96 Respiratory 22 18 Rate Blood Pressure 123/74 O2 Sat by Pulse 97 Oximetry 02/28/20 17:40 Temperature Pulse Rate 92 Respiratory Rate Blood Pressure O2 Sat by Pulse Oximetry Medical Decision Making - Lab Data Result diagrams: 02/28/20 17:15 02/28/20 17:15 Lab Results 02/28/20 02/28/20 02/28/20 Range/Units 17:06 17:15 17:15 WBC 9.8 (3.8-10.6) k/uL RBC 4.73 (3.80-5.40) m/uL Hgb 13.1 (11.4-16.0) gm/dL Hct 38.9 (34.0-46.0) % MCV 82.2 (80.0-100.0) fL MCH 27.6 (25.0-35.0) pg MCHC 33.6 (31.0-37.0) g/dL RDW 13.6 (11.5-15.5) % Plt Count 311 (150-450) k/uL MPV 7.0 Neutrophils % 62 % Lymphocytes % 27 % Monocytes % 5 % Eosinophils % 2 % Basophils % 2 % Neutrophils # 6.0 (1.3-7.7) k/uL Lymphocytes # 2.7 (1.0-4.8) k/uL Monocytes # 0.5 (0-1.0) k/uL Eosinophils # 0.2 (0-0.7) k/uL Basophils # 0.2 (0-0.2) k/uL Sodium 136 L (137-145) mmol/L Potassium 3.5 (3.5-5.1) mmol/L Chloride 101 (98-107) mmol/L Carbon Dioxide 22 (22-30) mmol/L Anion Gap 13 mmol/L BUN 10 (7-17) mg/dL Creatinine 1.06 H (0.52-1.04) mg/dL Est GFR (CKD-EPI)AfAm 79 (>60 ml/min/1.73 sqM) Est GFR (CKD-EPI)NonAf 69 (>60 ml/min/1.73 sqM) Glucose 106 H (74-99) mg/dL Calcium 9.2 (8.4-10.2) mg/dL Urine HCG, Qual Not Detected (Not Detectd) Coronavirus (PCR) (Not Detectd) 02/28/20 Range/Units 17:22 WBC (3.8-10.6) k/uL RBC (3.80-5.40) m/uL Hgb (11.4-16.0) gm/dL Hct (34.0-46.0) % MCV (80.0-100.0) fL MCH (25.0-35.0) pg MCHC (31.0-37.0) g/dL RDW (11.5-15.5) % Plt Count (150-450) k/uL MPV Neutrophils % % Lymphocytes % % Monocytes % % Eosinophils % % Basophils % % Neutrophils # (1.3-7.7) k/uL Lymphocytes # (1.0-4.8) k/uL Monocytes # (0-1.0) k/uL Eosinophils # (0-0.7) k/uL Basophils # (0-0.2) k/uL Sodium (137-145) mmol/L Potassium (3.5-5.1) mmol/L Chloride (98-107) mmol/L Carbon Dioxide (22-30) mmol/L Anion Gap mmol/L BUN (7-17) mg/dL Creatinine (0.52-1.04) mg/dL Est GFR (CKD-EPI)AfAm (>60 ml/min/1.73 sqM) Est GFR (CKD-EPI)NonAf (>60 ml/min/1.73 sqM) Glucose (74-99) mg/dL Calcium (8.4-10.2) mg/dL Urine HCG, Qual (Not Detectd) Coronavirus (PCR) Detected A (Not Detectd) Disposition Clinical Impression: COVID-19 Disposition: HOME SELF-CARE Condition: Fair Instructions (If sedation given, give patient instructions): Viral Pneumonia (ED) Additional Instructions: Today you were evaluated for symptoms consistent with upper respiratory infection. You tested positive for Covid 19. Your are stable for discharge, however it is instructed to to seek immediate medical attention especially if you develop worsening symptoms especially respiratory distress. In the meantime please remain in quarantine for 14 days. For any other questions please contact Judie for here in emergency department or [facility] at [phone] Use albuterol inhaler every 4-6 hours for the next 3 days. Prescriptions: Dexamethasone [Decadron] 6 mg PO DAILY 5 Days #5 tablet Is patient prescribed a controlled substance at d/c from ED?: No Referrals: Dajuan Calhoun MD [Primary Care Provider] - 1-2 days Time of Disposition: 18:19
[2020-02-28 17:23] LABS: Basophils # (A) 0.2 k/uL (0-0.2); Basophils % (A) 2 %; Eosinophils # (A) 0.2 k/uL (0-0.7); Eosinophils % (A) 2 %; HCT 38.9 % (34.0-46.0); HGB 13.1 gm/dL (11.4-16.0); Lymphocytes # (A) 2.7 k/uL (1.0-4.8); Lymphocytes % (A) 27 %; MCH 27.6 pg (25.0-35.0); MCHC 33.6 g/dL (31.0-37.0); MCV 82.2 fL (80.0-100.0); Monocytes # (A) 0.5 k/uL (0-1.0); Monocytes % (A) 5 %; Neutrophils % (A) 62 %; Platelet Count 311 k/uL (150-450); RBC 4.73 m/uL (3.80-5.40); RDW 13.6 % (11.5-15.5); WBC 9.8 k/uL (3.8-10.6)
[2020-02-28 17:25] VITALS: RESP 18
[2020-02-28 17:33] LABS: Calcium 9.2 mg/dL (8.4-10.2); Potassium 3.5 mmol/L (3.5-5.1)
[2020-02-28 17:41] VITALS: PULSE 92
[2020-02-28] MEDS ORDERED: dexAMETHasone 4 MG TAB PO STA (17:43)
--- NOTE | 2020-02-28 18:10 | XR ---
EXAMINATION TYPE: XR chest 1V portable DATE OF EXAM: 02/28/2020 COMPARISON: NONE HISTORY: Cough and shortness of breath. TECHNIQUE: Single frontal view of the chest is obtained. FINDINGS: There is mild bibasilar atelectasis. No focal air space opacity, pleural effusion, or pneu mothorax seen. The cardiac silhouette size is borderline enlarged. The osseous structures are inta ct. IMPRESSION: No acute cardiopulmonary abnormality.
== END 2020-02-28 18:28 | disposition home or self-care (01) ==
LOC: EC 16:33
DX: U07.1 COVID-19 (principal); J45.909 Unspecified asthma, uncomplicated; I10 Essential (primary) hypertension; Z79.51 Long term (current) use of inhaled steroids; Z79.899 Other long term (current) drug therapy; Z88.1 Allergy status to other antibiotic agents; Z86.14 Personal history of Methicillin resistant Staphylococcus aureus infection; Z87.01 Personal history of pneumonia (recurrent)
CPT/HCPCS: 36415; 94640; 80048; 85025; 81025; 87635; 71045; 99285; J8540

== ENCOUNTER 2020-03-02 16:17 | Inpatient (IN) | payer OTHER ==
[2020-03-02] MEDS ORDERED: SODIUM CHLORIDE 0.9% 1,000 ML IV STA (16:28)
[2020-03-02] MEDS ORDERED: ACETAMINOPHEN TAB 325 MG TAB PO STA (16:30)
[2020-03-02] MEDS ORDERED: ONDANSETRON 4 MG/2 ML VIAL IVP STA (16:30)
[2020-03-02] MEDS ORDERED: LORazepam 2 MG/ML INJ IV STA (16:30)
[2020-03-02 16:51] LABS: Basophils # (A) 0.1 k/uL (0-0.2); Basophils % (A) 1 %; Eosinophils # (A) 0.1 k/uL (0-0.7); Eosinophils % (A) 1 %; HGB 13.6 gm/dL (11.4-16.0); Lymphocytes # (A) 2.2 k/uL (1.0-4.8); Lymphocytes % (A) 18 %; MCH 27.7 pg (25.0-35.0); MCV 81.6 fL (80.0-100.0); Mean Platelet Volume 7.1; Monocytes # (A) 0.7 k/uL (0-1.0); Monocytes % (A) 6 %; Neutrophils # (A) 8.5 k/uL (1.3-7.7); Neutrophils % (A) 72 %; Platelet Count 365 k/uL (150-450); RDW 13.5 % (11.5-15.5); WBC 11.8 k/uL (3.8-10.6)
[2020-03-02 16:59] LABS: Albumin 4.5 g/dL (3.5-5.0); C Reactive Protein 25.9 mg/L (<10.0); Calcium 9.7 mg/dL (8.4-10.2); Magnesium 1.9 mg/dL (1.6-2.3); Potassium 3.2 mmol/L (3.5-5.1); Total Bilirubin 0.5 mg/dL (0.2-1.3); Total Protein 8.1 g/dL (6.3-8.2)
--- NOTE | 2020-03-02 17:01 | XR ---
EXAMINATION TYPE: XR chest 1V DATE OF EXAM: 03/02/2020 COMPARISON: 02/28/2020 HISTORY: Short of breath Heart and mediastinum are normal. Lungs are clear of infiltrate. There is no heart failure. There ar e chest leads. Costophrenic angles are clear. IMPRESSION: No active cardiopulmonary disease. Normal heart. No change.
--- NOTE | 2020-03-02 17:38 | ED ---
General Adult HPI - General Source: patient, EMS, RN notes reviewed Mode of arrival: EMS Limitations: no limitations <Sinan Jurado - Last Filed: 03/02/20 18:59> <Radha Mary - Last Filed: 03/03/20 22:43> - General Chief complaint: Shortness of Breath Stated complaint: SOB Time Seen by Provider: 03/02/20 16:18 - History of Present Illness Initial comments: This a 34-year-old female presents emergency Department with chief complaint of shortness breath, nausea vomiting diarrhea. Patient states she was here a few days ago diagnosed with Covid. Patient states that she has asthma states that she called her PCP who told him emergency department to be admitted. She states she cannot keep anything down. Patient was discharged and steroids. Patient states she gets very anxious he cannot breathe. Patient denies any specific abdominal pain. Patient states that she cannot take care of herself in this way . (Sinan Jurado) - Related Data Home Medications Medication Instructions Recorded Confirmed hydroCHLOROthiazide [Hydrodiuril] 25 mg PO DAILY 01/15/16 03/02/20 amLODIPine [Norvasc] 10 mg PO DAILY 12/20/16 03/02/20 Albuterol Sulfate [Proair Hfa] 2 puff INHALATION RT-Q4H PRN 02/20/20 03/02/20 Fluticasone/Salmeterol 1 puff INHALATION RT-DAILY 02/20/20 03/02/20 [Fluticasone-Salmeterol 113-14] HYDROcodone/APAP 5-325MG [[place] 1 tab PO TID PRN 02/28/20 03/02/20 5-325] Previous Rx's Medication Instructions Recorded Dexamethasone [Decadron] 6 mg PO DAILY 5 Days #5 tablet 02/28/20 Allergies Allergy/AdvReac Type Severity Reaction Status Date / Time doxycycline Allergy Intermediate Rash/Hives Verified 03/02/20 17:32 Review of Systems ROS Other: All systems not noted in ROS Statement are negative. <Sinan Jurado - Last Filed: 03/02/20 18:59> ROS Other: All systems not noted in ROS Statement are negative. <Radha Mary - Last Filed: 03/03/20 22:43> ROS Statement: Those systems with pertinent positive or pertinent negative responses have been documented in the HPI. Past Medical History Past Medical History: Asthma, GERD/Reflux, Hypertension, Pneumonia Additional Past Medical History / Comment(s): SINUS PROBLEMS, Hx of Kidney infection, chronic back pain, sciatica History of Any Multi-Drug Resistant Organisms: MRSA Date of last positivie culture/infection: 02/20/20 ESBL 2006 MRSA MDRO Source:: ESBL URINE MRSA LEGAT [facility] Past Surgical History: Tonsillectomy Additional Past Surgical History / Comment(s): GANGLION CYST REMOVAL Right w rist, OVARIAN CYST REMOVAL (Bilateral), d&c (multiple), Breast reduction surgery Feb 2016, Past Anesthesia/Blood Transfusion Reactions: Previous Problems w/ Anesthesia Additional Past Anesthesia/Blood Transfusion Reaction / Comment(s): EARLY WAKING DURING PROCEDURE. HAS HAD BLOOD TRANFUSION-NO REACTION Past Psychological History: Anxiety Smoking Status: Never smoker Past Alcohol Use History: Occasional Past Drug Use History: None Reported - Past Family History Mother Family Medical History: Hypertension Additional Family Medical History / Comment(s): SARCOIDOSIS, BIPOLAR Father Family Medical History: Congestive Heart Failure (CHF), Diabetes Mellitus, Deep Vein Thrombosis (DVT), Hypertension, Sleep Apnea/CPAP/BIPAP <Sinan Jurado - Last Filed: 03/02/20 18:59> General Exam Limitations: no limitations General appearance: alert, in no apparent distress, anxious Head exam: Present: atraumatic, normocephalic, normal inspection Eye exam: Present: normal appearance, PERRL, EOMI. Absent: scleral icterus, conjunctival injection, periorbital swelling ENT exam: Present: normal exam, mucous membranes moist Neck exam: Present: normal inspection, full ROM. Absent: tenderness, meningismus, lymphadenopathy Respiratory exam: Present: normal lung sounds bilaterally. Absent: respiratory distress, wheezes, rales, rhonchi, stridor Cardiovascular Exam: Present: normal rhythm, tachycardia, normal heart sounds. Absent: systolic murmur, diastolic murmur, rubs, gallop, clicks GI/Abdominal exam: Present: soft, normal bowel sounds. Absent: distended, tenderness, guarding, rebound, rigid Neurological exam: Present: alert, oriented X3 Skin exam: Present: warm, dry, intact, normal color. Absent: rash <Sinan Jurado - Last Filed: 03/02/20 18:59> Course Vital Signs 03/02/20 03/02/20 03/02/20 16:19 16:27 18:01 Temperature 100.2 F H 101.2 F H Pulse Rate 106 H 96 Respiratory 22 22 20 Rate Blood Pressure 124/70 110/61 O2 Sat by Pulse 98 98 Oximetry 03/02/20 03/02/20 19:19 20:13 Temperature 101.2 F H 101.2 F H Pulse Rate 88 88 Respiratory 18 18 Rate Blood Pressure 108/74 108/74 O2 Sat by Pulse 94 L 94 L Oximetry Medical Decision Making - Lab Data Result diagrams: 03/02/20 16:41 03/02/20 16:41 <Sinan Jurado - Last Filed: 03/02/20 18:59> - Lab Data Result diagrams: 03/02/20 16:41 03/02/20 16:41 <Radha Mary - Last Filed: 03/03/20 22:43> - Medical Decision Making 34-year-old lying for nausea vomiting diarrhea, shortness of breath x-ray does not show any significant abnormality, CT shows evidence of COVID pneumonia patient is not hypoxic. Patient was sent in by PCP and case discussed with Dr. Calhoun recommends patient be admitted. (Sinan Jurado) I was available for consultation in the emergency department. The history and physical exam were done by the midlevel provider. I was consulted for this patients care. I reviewed the case with the midlevel provider and based on their presentation of the patient, I agree with the assessment, medical decision making and plan of care as documented. I spoke with Dr. Calhoun who agreed to admit the patient. Chart was dictated using [employer] dictation software. Attempts were made to correct any dictation errors however some typographical errors may persist. Patient was seen during a national state of emergency due to the Covid-19 pandemic. (Radha Mary) - Lab Data Lab Results 03/02/20 03/02/20 03/02/20 Range/Units 16:41 16:41 16:41 WBC 11.8 H (3.8-10.6) k/uL RBC 4.90 (3.80-5.40) m/uL Hgb 13.6 (11.4-16.0) gm/dL Hct 40.0 (34.0-46.0) % MCV 81.6 (80.0-100.0) fL MCH 27.7 (25.0-35.0) pg MCHC 34.0 (31.0-37.0) g/dL RDW 13.5 (11.5-15.5) % Plt Count 365 (150-450) k/uL MPV 7.1 Neutrophils % 72 % Lymphocytes % 18 % Monocytes % 6 % Eosinophils % 1 % Basophils % 1 % Neutrophils # 8.5 H (1.3-7.7) k/uL Lymphocytes # 2.2 (1.0-4.8) k/uL Monocytes # 0.7 (0-1.0) k/uL Eosinophils # 0.1 (0-0.7) k/uL Basophils # 0.1 (0-0.2) k/uL D-Dimer 0.70 H (<0.60) mg/L FEU Sodium 136 L (137-145) mmol/L Potassium 3.2 L (3.5-5.1) mmol/L Chloride 101 (98-107) mmol/L Carbon Dioxide 24 (22-30) mmol/L Anion Gap 11 mmol/L BUN 15 (7-17) mg/dL Creatinine 1.00 (0.52-1.04) mg/dL Est GFR (CKD-EPI)AfAm 86 (>60 ml/min/1.73 sqM) Est GFR (CKD-EPI)NonAf 74 (>60 ml/min/1.73 sqM) Glucose 97 (74-99) mg/dL Calcium 9.7 (8.4-10.2) mg/dL Magnesium 1.9 (1.6-2.3) mg/dL Total Bilirubin 0.5 (0.2-1.3) mg/dL AST 23 (14-36) U/L ALT 21 (4-34) U/L Alkaline Phosphatase 62 (38-126) U/L C-Reactive Protein 25.9 H (<10.0) mg/L Total Protein 8.1 (6.3-8.2) g/dL Albumin 4.5 (3.5-5.0) g/dL Disposition <Sinan Jurado - Last Filed: 03/02/20 18:59> <Radha Mary - Last Filed: 03/03/20 22:43> Clinical Impression: COVID-19, Nausea vomiting and diarrhea Disposition: ADMITTED IP TO THIS HOSP Condition: Fair
--- NOTE | 2020-03-02 17:53 | CT ---
EXAMINATION TYPE: CT chest angio for PE DATE OF EXAM: 03/02/2020 COMPARISON: None HISTORY: Covid +, elevated d-dimer, SOB CT DLP: 603.3 mGycm Automated exposure control for dose reduction was used. CONTRAST: Performed with IV Contrast, patient injected with 100 mL of Isovue 370. Images obtained from the thoracic inlet to the diaphragm with IV contrast and 3-D post processed imag es. There is some patchy bilateral peripheral pulmonary airspace infiltrates. These measure up to 5 cm. T here is no evidence of a solid pulmonary mass. Heart size is normal. There is no pericardial effusion . There is no pleural effusion. There is no mediastinal adenopathy. Thoracic aorta is intact. There is no aneurysm or dissection. The re is normal contrast opacification of the pulmonary arteries. There are no filling defects. There is suboptimal amount of contrast density in the smaller branches of the pulmonary arteries. Thoracic vertebra have normal spacing and alignment. There is no compression fracture. Sternum is int act. Upper abdominal soft tissues are intact. IMPRESSION: Moderate patchy predominantly peripheral pulmonary airspace infiltrates. This is consistent with bron chopneumonia. No suspicious pulmonary mass. No evidence of pulmonary embolism.
[2020-03-02] MEDS ORDERED: NALOXONE 0.4 MG/ML 1 ML VIAL IV PRN (19:03)
[2020-03-02] MEDS ORDERED: ONDANSETRON 4 MG/2 ML VIAL IVP PRN (19:03)
[2020-03-02] MEDS: IBUPROFEN 400 MG TAB PO PRN (19:22)
[2020-03-02] MEDS: DEXAMETHASONE SOD PHOSPHATE 10 MG/ML 1 ML VIAL IV SCH (19:23)
[2020-03-02] MEDS: ACETAMINOPHEN TAB 325 MG TAB PO PRN (23:03)
[2020-03-03] MEDS: PANTOPRAZOLE 40 MG/10 ML VIAL IV SCH (08:56)
[2020-03-03] MEDS: DEXAMETHASONE SOD PHOSPHATE 10 MG/ML 1 ML VIAL IV SCH (10:03)
--- NOTE | 2020-03-03 12:22 | P.CNPUL ---
History of Present Illness Consult date: 03/03/20 Reason for consult: dyspnea History of present illness: 34-year-old female who came into the hospital because of increased nausea, vomiting, diarrhea shortness of breath. The patient has been having these symptoms for the past few days. The patient was in the emergency department on 02/28/2020 40s above-mentioned symptoms an incentive the patient was having nonproductive cough. She was wheezing. She is known to have asthma. At that time, the patient was seen in the ED and she underwent the covid 19 testing and came back positive. The patient was discharged home as the patient's chest x- ray was positive and the patient was not having any issues with oxygenation. The patient came back to the hospital for worsening symptoms. The patient was having worsening shortness of breath. The patient had a CRP of 25.9, d-dimer of 0.7 and the repeat chest x-ray done yesterday showed no acute abnormalities. Computed tomography scan of the chest showed moderate patchy infiltrates predominantly peripherally and this is consistent with viral infection. The patient is currently on room air oxygen and the pulse ox is ranging between 90 to the 95%. The patient was started on Decadron 6 mg IV on a daily basis. Noted the patient was receiving Decadron an outpatient basis and dose of 6 mg by mouth daily. The patient is known to have hypertension and bronchial asthma and the patient uses Proventil rescue inhaler to masturbate basis. Review of Systems Constitutional: Reports fatigue, Reports fever Eyes: denies as per HPI, denies blurred vision, denies bulging eye, denies decreased vision, denies diplopia, denies discharge, denies dry eye, denies irritation, denies itching, denies pain, denies photophobia, denies loss of peripheral vision, denies loss of vision, denies tunnel vision/blind spots Ears: deny: decreased hearing, ear discharge, earache, tinnitus Ears, nose, mouth and throat: Reports as per HPI Breasts: absent: as per HPI, change in shape, gynecomastia, masses, nipple discharge, pain, skin changes, swelling Cardiovascular: Reports as per HPI, Reports decreased exercise tolerance, Reports dyspnea on exertion Respiratory: Reports cough, Reports dyspnea Gastrointestinal: Reports diarrhea, Reports nausea, Reports vomiting Genitourinary: Reports as per HPI Menstruation: Reports as per HPI Musculoskeletal: Reports as per HPI Musculoskeletal: absent: ankle pain, ankle stiffness, ankle swelling Integumentary: Reports as per HPI Neurological: Reports as per HPI, Reports weakness Psychiatric: Reports as per HPI Endocrine: Reports as per HPI Hematologic/Lymphatic: Reports as per HPI Allergic/Immunologic: Reports as per HPI Past Medical History Past Medical History: Asthma, GERD/Reflux, Hypertension, Pneumonia Additional Past Medical History / Comment(s): SINUS PROBLEMS, Hx of Kidney infection, chronic back pain, sciatica History of Any Multi-Drug Resistant Organisms: MRSA Date of last positivie culture/infection: 02/20/20 ESBL 2006 MRSA MDRO Source:: ESBL URINE MRSA LEGAT [facility] Past Surgical History: Tonsillectomy Additional Past Surgical History / Comment(s): GANGLION CYST REMOVAL Right wrist, OVARIAN CYST REMOVAL (Bilateral), d&c (multiple), Breast reduction surgery Feb 2016, Past Anesthesia/Blood Transfusion Reactions: Previous Problems w/ Anesthesia Additional Past Anesthesia/Blood Transfusion Reaction / Comment(s): EARLY WAKING DURING PROCEDURE. HAS HAD BLOOD TRANFUSION-NO REACTION Past Psychological History: Anxiety Additional Psychological History / Comment(s): PT IS INDEPENDANT. LIVES [place]OU[place] AND 1 CHILD IN 2 STORY HOME THAT HAS 1 PORCH STEP. NO PETS. PT WORKS FOR [employer] HOUSING Smoking Status: Never smoker Past Alcohol Use History: Occasional Additional Past Alcohol Use History / Comment(s): STARTED SMOKING 2002 AND QUIT 2012 SMOKED 1/2 PPD Past Drug Use History: None Reported - Past Family History Mother Family Medical History: Hypertension Additional Family Medical History / Comment(s): SARCOIDOSIS, BIPOLAR Father Family Medical History: Congestive Heart Failure (CHF), Diabetes Mellitus, Deep Vein Thrombosis (DVT), Hypertension, Sleep Apnea/CPAP/BIPAP Medications and Allergies Home Medications Medication Instructions Recorded Confirmed Type hydroCHLOROthiazide [Hydrodiuril] 25 mg PO DAILY 01/15/16 03/02/20 History amLODIPine [Norvasc] 10 mg PO DAILY 12/20/16 03/02/20 History Albuterol Sulfate [Proair Hfa] 2 puff INHALATION RT-Q4H PRN 02/20/20 03/02/20 History Fluticasone/Salmeterol 1 puff INHALATION RT-DAILY 02/20/20 03/02/20 History [Fluticasone-Salmeterol 113-14] Dexamethasone [Decadron] 6 mg PO DAILY 5 Days #5 tablet 02/28/20 03/02/20 Rx HYDROcodone/APAP 5-325MG [[place] 1 tab PO TID PRN 02/28/20 03/02/20 History 5-325] Allergies Allergy/AdvReac Type Severity Reaction Status Date / Time doxycycline Allergy Intermediate Rash/Hives Verified 03/02/20 17:32 Physical Exam Vitals: Vital Signs Temp Pulse Pulse Resp BP BP Pulse Ox 03/03/20 08:48 98.1 F 83 20 94/60 92 L 03/03/20 06:34 109/69 03/03/20 02:45 98 F 74 19 100/67 95 03/02/20 20:50 99.2 F 85 20 102/62 94 L 03/02/20 20:13 101.2 F H 88 18 108/74 94 L 03/02/20 19:19 101.2 F H 88 18 108/74 94 L 03/02/20 18:01 101.2 F H 96 20 110/61 98 03/02/20 16:27 22 03/02/20 16:19 100.2 F H 106 H 22 124/70 98 Intake and Output 03/02/20 03/03/20 03/03/20 22:59 06:59 14:59 Intake Total 600 Balance 600 Intake: Intake, IV Titration 600 Amount Sodium Chloride 0.9% 1, 600 000 ml @ 75 mls/hr IV . [id number] STA Rx#:[id number] Other: Voiding Method Toilet Toilet Toilet # Voids 1 1 Weight 125.191 kg The patient appeared well nourished and normally developed. Vital signs as doc umented. Head exam is unremarkable. No scleral icterus or corneal arcus noted. Neck is without jugular venous distension, thyromegaly, or carotid bruits. Carotid upstrokes are brisk bilaterally. Lungs are clear to auscultation and percussion. Cardiac exam reveals the PMI to be normally sized and situated. Rhythm is regular. First and second heart sounds normal. No murmurs, rubs or gallops. Abdominal exam reveals normal bowel sounds, no masses, no organomegaly and no aortic enlargement. Extremities are nonedematous and both femoral and pedal pulses are normal. Examination of the skin revealed no evidence of significant rashes, suspicious appearing nevi or other concerning lesions. Neurologically, the patient is awake and alert and the patient does not have any focal neurological deficit. Cranial nerves are essentially intact. Results - Laboratory Findings CBC and BMP: 03/02/20 16:41 03/02/20 16:41 ABG WBC 11.8 k/uL (3.8-10.6) H 03/02/20 16:41 RBC 4.90 m/uL (3.80-5.40) 03/02/20 16:41 Hgb 13.6 gm/dL (11.4-16.0) 03/02/20 16:41 Hct 40.0 % (34.0-46.0) 03/02/20 16:41 MCV 81.6 fL (80.0-100.0) 03/02/20 16:41 MCH 27.7 pg (25.0-35.0) 03/02/20 16:41 MCHC 34.0 g/dL (31.0-37.0) 03/02/20 16:41 RDW 13.5 % (11.5-15.5) 03/02/20 16:41 Plt Count 365 k/uL (150-450) 03/02/20 16:41 MPV 7.1 03/02/20 16:41 Neutrophils % 72 % 03/02/20 16:41 Lymphocytes % 18 % 03/02/20 16:41 Monocytes % 6 % 03/02/20 16:41 Eosinophils % 1 % 03/02/20 16:41 Basophils % 1 % 03/02/20 16:41 Neutrophils # 8.5 k/uL (1.3-7.7) H 03/02/20 16:41 Lymphocytes # 2.2 k/uL (1.0-4.8) 03/02/20 16:41 Monocytes # 0.7 k/uL (0-1.0) 03/02/20 16:41 Eosinophils # 0.1 k/uL (0-0.7) 03/02/20 16:41 Basophils # 0.1 k/uL (0-0.2) 03/02/20 16:41 D-Dimer 0.70 mg/L FEU (<0.60) H 03/02/20 16:41 Sodium 136 mmol/L (137-145) L 03/02/20 16:41 Potassium 3.2 mmol/L (3.5-5.1) L 03/02/20 16:41 Chloride 101 mmol/L (98-107) 03/02/20 16:41 Carbon Dioxide 24 mmol/L (22-30) 03/02/20 16:41 Anion Gap 11 mmol/L 03/02/20 16:41 BUN 15 mg/dL (7-17) 03/02/20 16:41 Creatinine 1.00 mg/dL (0.52-1.04) 03/02/20 16:41 Est GFR (CKD-EPI)AfAm 86 (>60 ml/min/1.73 sqM) 03/02/20 16:41 Est GFR (CKD-EPI)NonAf 74 (>60 ml/min/1.73 sqM) 03/02/20 16:41 Glucose 97 mg/dL (74-99) 03/02/20 16:41 Calcium 9.7 mg/dL (8.4-10.2) 03/02/20 16:41 Magnesium 1.9 mg/dL (1.6-2.3) 03/02/20 16:41 Total Bilirubin 0.5 mg/dL (0.2-1.3) 03/02/20 16:41 AST 23 U/L (14-36) 03/02/20 16:41 ALT 21 U/L (4-34) 03/02/20 16:41 Alkaline Phosphatase 62 U/L (38-126) 03/02/20 16:41 C-Reactive Protein 25.9 mg/L (<10.0) H 03/02/20 16:41 Total Protein 8.1 g/dL (6.3-8.2) 03/02/20 16:41 Albumin 4.5 g/dL (3.5-5.0) 03/02/20 16:41 PT/INR, D-dimer D-Dimer 0.70 mg/L FEU (<0.60) H 03/02/20 16:41 Abnormal lab findings: Abnormal Labs 03/02/20 03/02/20 03/02/20 16:41 16:41 16:41 WBC 11.8 H Neutrophils # 8.5 H D-Dimer 0.70 H Sodium 136 L Potassium 3.2 L C-Reactive Protein 25.9 H - Diagnostic Findings Chest x-ray: image reviewed CT scan - chest: image reviewed Assessment and Plan Plan: 1 acute Covid 19 related pneumonia 2 acute hypoxemic respiratory failure, currently not requiring any options supplementation 3 nausea vomiting and diarrhea secondary to Covid 19 related infection 4 history of mild intermittent bronchial asthma 5 hypertension Plan Continue Decadron 6 mg by mouth daily Add zinc, vitamin C and vitamin D in addition to melatonin and Pepcid IV hydration with fluids and normal saline Lovenox 40 mg subcu for DVT prophylaxis Albuterol HFA on an estrogen basis Monitor inflammatory markers We'll continue to follow
[2020-03-03 13:05] LABS: C Reactive Protein 49.5 mg/L (<10.0)
[2020-03-03] MEDS: ZINC SULFATE 220 MG CAP PO SCH (13:16)
[2020-03-03] MEDS: ASCORBIC ACID 500 MG TAB PO SCH ×2 (13:16→21:28)
[2020-03-03] MEDS: ENOXAPARIN 40 MG/0.4 ML SYRINGE SQ SCH (13:16)
[2020-03-03] MEDS: guaiFENesin-Coden 100-10MG/5ML 10 ML CUP PO PRN (13:17)
[2020-03-03] MEDS: CHOLECALCIFEROL 25 MCG (1000 IU) TABLET PO SCH (13:21)
[2020-03-03] MEDS ORDERED: REMDESIVIR 200 MG in SODIUM CHLORIDE 0.9% 250 ML IVPB ONE (15:00)
[2020-03-03] MEDS: ALBUTEROL HFA INHALER INHALATION SCH ×2 (15:42→20:42)
[2020-03-03] MEDS: SODIUM CHLORIDE 0.9% 1,000 ML IV SCH (16:18)
[2020-03-03] MEDS: IBUPROFEN 400 MG TAB PO PRN (16:20)
--- NOTE | 2020-03-03 16:41 | CONS ---
CONSULTATION DATE OF SERVICE: 03/03/2020 REASON FOR CONSULTATION: COVID-19 pneumonia. HISTORY OF PRESENT ILLNESS: The patient is a 34-year-old -[place] female who started getting sick about a week ago with initial symptoms of generalized weakness and no energy. The patient's symptoms got worse over the next 2-3 days and the patient was seen at [facility] ER on February 28, 2020. At that point the patient was diagnosed with a COVID-19 infection. As the patient was not hypoxic, the patient was sent home on steroids. The patient presented back to [facility] ER yesterday afternoon with concern about increasing shortness of breath. The patient had been getting worse for the last few days before presentation to the hospital on minimal exertion. The patient also has a cough which is moderate in intensity, not bringing up any sputum. Denies any pleuritic chest pain. No nausea, no vomiting. The patient did have some diarrhea initially, but that subsequently seems to have resolved, as the patient says she has hardly eaten any solid food recently. The patient was evaluated by the ER physician on arrival in the ER and she did have a fever of 101.2 degrees Fahrenheit. The patient was saturating initially at 98% but subsequent saturations have been around 94% on room air and currently 92% on room air. The patient did have a white count of 11.8 with left shift. D-dimer was elevated at 0.7 and repeat is 0.88. Her CRP yesterday was 25 and is up to 49.5 today. The patient did have a chest x-ray showing no active cardiopulmonary disease. However, CT angiogram of the chest does show moderate patchy predominantly peripheral pulmonary airspace infiltrate. The patient was admitted to the hospital and has been seen by Pulmonary. The patient was started on dexamethasone, Lovenox and zinc. Infectious Disease was consulted for further management. REVIEW OF SYSTEMS: Positive points have been mentioned in the HPI. Rest of the systems are negative. PAST MEDICAL HISTORY: Asthma, gastroesophageal reflux disease, hypertension, pneumonia, previous history of MRSA infection. PAST SURGICAL HISTORY: Tonsillectomy, ganglion cyst removed from right wrist, ovarian cyst removal, breast reduction surgery. SOCIAL HISTORY: No history of smoking. Occasionally drinks. No drug use. FAMILY HISTORY: Mother with history of hypertension, bipolar, sarcoidosis. Father with history of DVT, diabetes mellitus. ALLERGIES: DOXYCYCLINE. MEDICATIONS: The patient is currently on zinc, Protonix, Zofran, Narcan, melatonin, Lovenox, dexamethasone, vitamin C, D, Tylenol. PHYSICAL EXAMINATION: Blood pressure 94/60 with a pulse of 83, temperature 98.1. T-max is 101. She is 92% on room air. General description is a middle-aged female lying in bed in no distress. No tachypnea or accessory muscle of respiration use. HEENT: Examination shows no pallor or scleral icterus. Oral mucous membrane is dry. No pharyngeal erythema or thrush. NECK: Trachea is central. No thyromegaly. LUNGS: Unlabored breathing. Decreased intensive of breath sounds. No wheeze. HEART: S1, S2. Regular rate and rhythm. ABDOMEN: Soft. No tenderness. No guarding or rigidity. EXTREMITIES: No edema of the feet. SKIN EXAMINATION: No rash or mass palpable. Neurologically patient is awake and alert, oriented x3. Mood and affect normal. LABS: Hemoglobin is 13.6, white count 11.8, BUN of 15, creatinine 1.0. Electrolytes have been normal. Liver enzymes are normal. CRP is trending up. Chest x-ray and CT report as mentioned above. DIAGNOSTIC IMPRESSION AND PLAN: Patient admitted to hospital with acute COVID-19 pneumonia in this patient who seems to have shown clinical worsening, with worsening of her inflammatory markers. This patient is at high risk of progression into worsening respiratory failure. Currently no evidence of any secondary bacterial pneumonia. PLAN: 1. The patient will be started on Remdesivir 200 mg x1 followed by 100 mg daily, as the patient currently does qualify for it and will benefit from it. 2. Patient to continue with Lovenox, dexamethasone, zinc and vitamin C. 3. Droplet isolation and respiratory support. 4. Will follow clinical condition and further adjust medication if needed. Thank you for this consultation. Will follow the patient along with you. Plan of care was discussed with the pulmonary team. MMWISAML / JULIO CESARN: [id number] /
--- NOTE | 2020-03-03 18:01 | HP ---
HISTORY AND PHYSICAL CHIEF COMPLAINT: Cough, shortness of breath and COVID pneumonia. HISTORY OF PRESENT ILLNESS: The is the first known admission for this 34-year-old obese -[place] female. She developed shortness of breath, cough and congestion, and came to the emergency room and was found to have coronavirus pneumonia. Vital signs were stable and her breathing was relatively adequate and she was sent home. However, she continued to get worse, called the office, and she was sent back to the emergency room. She is having increasing shortness of breath and a very forceful, dry, harsh and uncomfortable cough. REVIEW OF SYSTEMS: She has had no loss of taste and smell. She has had no diarrhea. She has had no chest pain, nausea, vomiting, hematemesis, melena, dysuria, frequency, urgency, etc. Past medical history, family history, and personal and social histories reveal that she has had a problem with hypertension and reactive airway disease. She is ALLERGIC to LORNA INHIBITORS and TETRACYCLINE. She is on losartan 100 mg once a day, amlodipine 10 mg once a day, hydrochlorothiazide 25 mg once a day, montelukast 10 mg once a day, vitamin D 50,000 units a month, albuterol inhaler, ibuprofen 800 mg q.i.d. p.r.n., inhaler, fluticasone, and Vicodin 5/325 p.r.n. She used to smoke but does not any longer. PHYSICAL EXAMINATION: Blood pressure 142/95 with a pulse of 88, respirations of 40 and she is afebrile. In general she appears to be overweight and she was short of breath. Head, ears, eyes, nose, mouth and throat were normal. Chest demonstrated scattered rales throughout. Cardiac exam demonstrated sinus tachycardia. The abdomen is protuberant, soft and nontender. Extremities are normal. IMPRESSION: 1. COVID pneumonia. 2. Obesity. 3. Hypertension. 4. Reactive airway disease. PLAN: 1. Bed rest. 2. IV fluids. 3. Consult with Infectious Disease and Pulmonology. MMODL / DONNIE: [id number] /
--- NOTE | 2020-03-03 18:17 | PN ---
PROGRESS NOTE CHIEF COMPLAINT: COVID pneumonia. HISTORY OF PRESENT ILLNESS: This lady is still quite short of breath and coughing frequently. Her temperature has been down. PHYSICAL EXAMINATION: Physical exam demonstrates scattered rales throughout. Cardiac exam demonstrates tachycardia. IMPRESSION: 1. COVID pneumonia. 2. Obesity. 3. Hypertension. PLAN: 1. Consult Pulmonology and Infectious Disease. 2. Admit. MMODL / IJN: [id number] /
[2020-03-03] MEDS: SYMBICORT 80-4.5 MCG INHALER INHALATION SCH (20:42)
[2020-03-03] MEDS: MELATONIN 5 MG TABLET PO SCH (21:28)
[2020-03-04] MEDS: SODIUM CHLORIDE 0.9% 1,000 ML IV SCH ×2 (02:32→20:17)
[2020-03-04] MEDS: guaiFENesin-Coden 100-10MG/5ML 10 ML CUP PO PRN ×3 (03:45→16:01)
[2020-03-04] MEDS: SYMBICORT 80-4.5 MCG INHALER INHALATION SCH ×2 (08:30→19:57)
[2020-03-04] MEDS: ALBUTEROL HFA INHALER INHALATION SCH ×4 (08:30→19:57)
[2020-03-04] MEDS: ZINC SULFATE 220 MG CAP PO SCH (08:48)
[2020-03-04] MEDS: dexAMETHasone 2 MG TAB PO SCH (08:48)
[2020-03-04] MEDS: CHOLECALCIFEROL 25 MCG (1000 IU) TABLET PO SCH (08:49)
[2020-03-04] MEDS: ENOXAPARIN 40 MG/0.4 ML SYRINGE SQ SCH (08:49)
[2020-03-04] MEDS: PANTOPRAZOLE 40 MG/10 ML VIAL IV SCH (08:49)
[2020-03-04] MEDS: hydroCHLOROthiazide 25 MG TAB PO SCH (08:49)
[2020-03-04] MEDS: amLODIPine 10 MG TAB PO SCH (08:49)
[2020-03-04] MEDS: ASCORBIC ACID 500 MG TAB PO SCH ×2 (08:49→20:17)
[2020-03-04 11:21] LABS: C Reactive Protein 5.5 mg/dL (0.0-0.8)
--- NOTE | 2020-03-04 11:53 | P.PN ---
Subjective Progress Note Date: 03/04/20 34-year-old female who came into the hospital because of increased nausea, vomiting, diarrhea shortness of breath. The patient has been having these symptoms for the past few days. The patient was in the emergency department on 02/28/2020 40s above-mentioned symptoms an incentive the patient was having nonproductive cough. She was wheezing. She is known to have asthma. At that time, the patient was seen in the ED and she underwent the covid 19 testing and came back positive. The patient was discharged home as the patient's chest x- ray was positive and the patient was not having any issues with oxygenation. The patient came back to the hospital for worsening symptoms. The patient was having worsening shortness of breath. The patient had a CRP of 25.9, d-dimer of 0.7 and the repeat chest x-ray done yesterday showed no acute abnormalities. Computed tomography scan of the chest showed moderate patchy infiltrates predominantly peripherally and this is consistent with viral infection. The patient is currently on room air oxygen and the pulse ox is ranging between 90 to the 95%. The patient was started on Decadron 6 mg IV on a daily basis. Noted the patient was receiving Decadron an outpatient basis and dose of 6 mg by mouth daily. The patient is known to have hypertension and bronchial asthma and the patient uses Proventil rescue inhaler to masturbate basis. On 03/04/2020, the patient is still coughing. Her cough is dry. She reported only limited improvement in her cough. She is still coughing vigorously whenever she talks of whenever she takes a deep breath in. Note that the patient has history of bronchial asthma and Covid 19 pneumonia. The patient is on Symbicort. The patient is on Ventolin rescue inhaler 4 times a day through a spacer device. Earlier this morning, she had a bout of emesis. I started the patient a combination of Decadron and she is also on Remdesivir , She is also taking normal state rate of 75 mL's an hour. CRP is down to 5.5 and the LDH level is down to 236. She is afebrile. She only had a 1 bouts of emesis this morning. No nausea. No diarrhea. No abdominal pain. No Altered mentation. Objective - Vital Signs Vital signs: Vital Signs Temp 99 F 03/04/20 09:44 Pulse 77 03/04/20 09:44 Resp 18 03/04/20 09:44 BP 114/73 03/04/20 09:44 Pulse Ox 93 L 03/04/20 09:44 Intake & Output 03/03/20 03/04/20 03/04/20 18:59 06:59 18:59 Intake Total 500 Balance 500 Intake: Intake, IV Titration 200 Amount Sodium Chloride 0.9% 1, 200 000 ml @ 75 mls/hr IV . [id number] [facility] Rx#:[id number] Oral 300 Other: Voiding Method Toilet Toilet # Voids 1 1 - Exam The patient appeared well nourished and normally developed. Vital signs as documented. Head exam is unremarkable. No scleral icterus or corneal arcus noted. Neck is without jugular venous distension, thyromegaly, or carotid bruits. Carotid upstrokes are brisk bilaterally. Lungs are clear to auscultation and percussion. Cardiac exam reveals the PMI to be normally sized and situated. Rhythm is regular. First and second heart sounds normal. No murmurs, rubs or gallops. Abdominal exam reveals normal bowel sounds, no masses, no organomegaly and no aortic enlargement. Extremities are nonedematous and both femoral and pedal pulses are normal. Examination of the skin revealed no evidence of significant rashes, suspicious appearing nevi or other concerning lesions. Neurologically, the patient is awake and alert and the patient does not have any focal neurological deficit. Cranial nerves are essentially intact. - Labs CBC & Chem 7: 03/02/20 16:41 03/02/20 16:41 Labs: Abnormal Lab Results - Last 24 Hours (Table) 03/03/20 03/03/20 03/04/20 Range/Units 12:30 12:30 06:03 D-Dimer 0.88 H (<0.60) mg/L FEU C-Reactive Protein 49.5 H 5.5 H (<10.0) mg/L Assessment and Plan Plan: 1 acute Covid 19 related pneumonia, with secondary shortness of breath and cough and mild hypoxemia and the patient remains on room air oxygen. 2 acute hypoxemic respiratory failure, currently not requiring any options supplementation 3 nausea vomiting and diarrhea secondary to Covid 19 related infection 4 history of mild intermittent bronchial asthma 5 hypertension Plan Continue Decadron 6 mg by mouth daily and Remdesivir , the inflammatory markers are improving including CRP and LDH Add zinc, vitamin C and vitamin D in addition to melatonin and Pepcid IV hydration with fluids and normal saline Lovenox 40 mg subcu for DVT prophylaxis Albuterol HFA on every 6 hours around the clock in addition to Symbicort 2 puffs twice a day Monitor inflammatory markers We'll continue to follow
[2020-03-04] MEDS: REMDESIVIR 100 MG in SODIUM CHLORIDE 0.9% 250 ML IVPB SCH (16:01)
--- NOTE | 2020-03-04 16:40 | PN ---
PROGRESS NOTE DATE OF SERVICE: 03/04/2020 REASON FOR FOLLOWUP: COVID-19 pneumonia. INTERVAL HISTORY: The patient is currently afebrile. The patient feels slightly better today. She is still at 91% on room air. Denies having any chest pain. Patient continued to have a cough. Not bringing up any sputum. No abdominal pain. Some nausea, vomiting. No further diarrhea has been reported. PHYSICAL EXAMINATION: Blood pressure 119/73 with a pulse of 80, temperature 98.9. She is 91% on room air. General description is a middle-aged female lying in bed in no distress. RESPIRATORY SYSTEM: Unlabored breathing with decreased intensity of breath sounds. No wheeze. HEART: S1, S2. Regular rate and rhythm. ABDOMEN: Soft, no tenderness. LABS: D-dimer normalized at 0.58. CRP down to 5.5. DIAGNOSTIC IMPRESSION AND PLAN: Patient with acute COVID-19 pneumonia. Patient seemed to have clinically responded to current treatment protocol including remdesivir, dexamethasone, Lovenox, zinc, to continue and monitor clinical course closely. Continue with supportive care. MMODL / IJN: [id number] /
--- NOTE | 2020-03-04 17:36 | PN ---
PROGRESS NOTE CHIEF COMPLAINT: COVID pneumonitis. HISTORY OF PRESENT ILLNESS: This lady is feeling a little bit better. She is a little bit less short of breath. She still has a harsh cough. PHYSICAL EXAMINATION: Chest demonstrates fairly good breath sounds with scattered rales and rhonchi. Cardiac exam is normal. IMPRESSION: COVID-19 pneumonia. PLAN: Continue with the metered-dose inhaler, antibiotics, and progress activity. MMODL / IJN: [id number] /
[2020-03-04] MEDS: MELATONIN 5 MG TABLET PO SCH (20:17)
[2020-03-05] MEDS: guaiFENesin-Coden 100-10MG/5ML 10 ML CUP PO PRN (00:33)
[2020-03-05] MEDS: IBUPROFEN 400 MG TAB PO PRN (04:39)
[2020-03-05] MEDS: SYMBICORT 80-4.5 MCG INHALER INHALATION SCH ×2 (08:03→19:51)
[2020-03-05] MEDS: ALBUTEROL HFA INHALER INHALATION SCH ×4 (08:03→19:51)
[2020-03-05] MEDS: ENOXAPARIN 40 MG/0.4 ML SYRINGE SQ SCH (08:16)
[2020-03-05] MEDS: PANTOPRAZOLE 40 MG TABLET PO SCH (08:17)
[2020-03-05] MEDS: ZINC SULFATE 220 MG CAP PO SCH (08:17)
[2020-03-05] MEDS: ASCORBIC ACID 500 MG TAB PO SCH ×2 (08:17→21:18)
[2020-03-05] MEDS: amLODIPine 10 MG TAB PO SCH (08:17)
[2020-03-05] MEDS: CHOLECALCIFEROL 25 MCG (1000 IU) TABLET PO SCH (08:17)
[2020-03-05] MEDS: hydroCHLOROthiazide 25 MG TAB PO SCH (08:17)
[2020-03-05] MEDS: dexAMETHasone 2 MG TAB PO SCH (08:17)
[2020-03-05] MEDS: DOCUSATE 100 MG CAP PO SCH (09:25)
[2020-03-05] MEDS: CALCIUM CARBONATE 500 MG CHEWABLE PO PRN (09:25)
--- NOTE | 2020-03-05 12:19 | P.PN ---
Subjective Progress Note Date: 03/05/20 34-year-old female who came into the hospital because of increased nausea, vomiting, diarrhea shortness of breath. The patient has been having these symptoms for the past few days. The patient was in the emergency department on 02/28/2020 40s above-mentioned symptoms an incentive the patient was having nonproductive cough. She was wheezing. She is known to have asthma. At that time, the patient was seen in the ED and she underwent the covid 19 testing and came back positive. The patient was discharged home as the patient's chest x- ray was positive and the patient was not having any issues with oxygenation. The patient came back to the hospital for worsening symptoms. The patient was having worsening shortness of breath. The patient had a CRP of 25.9, d-dimer of 0.7 and the repeat chest x-ray done yesterday showed no acute abnormalities. Computed tomography scan of the chest showed moderate patchy infiltrates predominantly peripherally and this is consistent with viral infection. The patient is currently on room air oxygen and the pulse ox is ranging between 90 to the 95%. The patient was started on Decadron 6 mg IV on a daily basis. Noted the patient was receiving Decadron an outpatient basis and dose of 6 mg by mouth daily. The patient is known to have hypertension and bronchial asthma and the patient uses Proventil rescue inhaler to masturbate basis. On 03/04/2020, the patient is still coughing. Her cough is dry. She reported only limited improvement in her cough. She is still coughing vigorously whenever she talks of whenever she takes a deep breath in. Note that the patient has history of bronchial asthma and Covid 19 pneumonia. The patient is on Symbicort. The patient is on Ventolin rescue inhaler 4 times a day through a spacer device. Earlier this morning, she had a bout of emesis. I started the patient a combination of Decadron and she is also on Remdesivir , She is also taking normal state rate of 75 mL's an hour. CRP is down to 5.5 and the LDH level is down to 236. She is afebrile. She only had a 1 bouts of emesis this morning. No nausea. No diarrhea. No abdominal pain. No Altered mentation. On 03/05/2020 patient seen in follow-up on medical floor, she still coughing, off is very harsh, nonproductive, there is good air entry noted bilaterally, there is some scattered rales and rhonchi, patient has been afebrile, room air p ulse ox is 90-97%, no fever or chills, he is on Decadron, day 3 of Remdesivir, she is on vitamins, and prophylactic dose of Lovenox, today's labs have been reviewed, d-dimer 0.58, LDH is 236, and CRPs 5.5, inflammatory markers are improving since admission. Overall she states she is feeling better, point of chest pain or palpitations, some nausea, no vomiting, no abdominal pain. Objective - Vital Signs Vital signs: Vital Signs Temp 98.2 F 03/05/20 09:24 Pulse 74 03/05/20 09:24 Resp 17 03/05/20 09:24 BP 116/74 03/05/20 09:24 Pulse Ox 90 L 03/05/20 09:24 Intake & Output 03/04/20 03/05/20 03/05/20 18:59 06:59 18:59 Other: Voiding Method Toilet Toilet Toilet # Voids 1 2 - Exam GENERAL EXAM: Alert, Very pleasant, 34-year-old female, comfortable in no apparent distress. HEAD: Normocephalic/atraumatic. EYES: Normal reaction of pupils, equal size. Conjunctiva pink, sclera white. NOSE: Clear with pink turbinates. THROAT: No erythema or exudates. NECK: No masses, no JVD, no thyroid enlargement, no adenopathy. CHEST: No chest wall deformity. Symmetrical expansion. LUNGS: Equal air entry with coarse bronchial breath sounds, and diffuse rhonchi and crackles CVS: Regular rate and rhythm, normal S1 and S2, no gallops, no murmurs, no rubs ABDOMEN: Soft, nontender. No hepatosplenomegaly, normal bowel sounds, no guarding or rigidity. EXTREMITIES: No clubbing, no edema, no cyanosis, 2+ pulses and upper and lower extremities. MUSCULOSKELETAL: Muscle strength and tone normal. SPINE: No scoliosis or deformity SKIN: No rashes CENTRAL NERVOUS SYSTEM: Alert and oriented -3. No focal deficits, tone is normal in all 4 extremities. PSYCHIATRIC: Alert and oriented -3. Appropriate affect. Intact judgment and insight. - Labs CBC & Chem 7: 03/02/20 16:41 03/02/20 16:41 Assessment and Plan Plan: Assessment: 1 acute Covid 19 related pneumonia, with secondary shortness of breath and cough and mild hypoxemia and the patient remains on room air oxygen. 2 acute hypoxemic respiratory failure, currently not requiring any options supplementation 3 nausea vomiting and diarrhea secondary to Covid 19 related infection 4 history of mild intermittent bronchial asthma 5 hypertension Plan: Continue with Remdesivir treatment, continue same dose Decadron, continue prophylactic dose of Lovenox, inflammatory markers are improving, d-dimer is improving, no acute events overnight, still has a harsh cough, but no worsening dyspnea, vital stable, no fever or chills. Continue to follow I performed a history & physical examination of the patient and discussed their management with my nurse practitioner, Mary Howell. I reviewed the nurse practitioner's note and agree with the documented findings and plan of care. Lung sounds are positive for diffuse rhonchi and rails throughout the lung howard. The findings and the impression was discussed with the patient. I attest to the documentation by the nurse practitioner. Time with Patient: Less than 30
[2020-03-05] MEDS: REMDESIVIR 100 MG in SODIUM CHLORIDE 0.9% 250 ML IVPB SCH (15:18)
--- NOTE | 2020-03-05 19:43 | PN ---
PROGRESS NOTE CHIEF COMPLAINT: COVID pneumonia. HISTORY OF PRESENT ILLNESS: This lady is doing slightly better. She is having a little bit of trouble with constipation and indigestion. PHYSICAL EXAMINATION: Temperature is normal. Exam revealed good breath sounds with scattered rales and rhonchi. IMPRESSION: 1. COVID pneumonia. 2. Gastritis. 3. Constipation. 4. Obesity. PLAN: Continue with current program. She is improving and might be able to go home in the next day or two. MMODL / IJN: [id number] /
[2020-03-05] MEDS: SODIUM CHLORIDE 0.9% 1,000 ML IV SCH (21:16)
[2020-03-05] MEDS: MELATONIN 5 MG TABLET PO SCH (21:18)
--- NOTE | 2020-03-05 22:19 | PN ---
PROGRESS NOTE DATE OF SERVICE: 03/05/2020 REASON FOR FOLLOWUP: COVID-19 pneumonia. INTERVAL HISTORY: The patient is currently afebrile. The patient is feeling slightly better. The patient continues to have a cough, moderate in intensity, dry in nature. No chest pain. No nausea, no vomiting no abdominal pain or diarrhea. PHYSICAL EXAMINATION: Blood pressure 96/65, pulse of 59, temperature 98.4. She is 95% on room air. General description is a middle-aged female up in the bed in no distress. RESPIRATORY SYSTEM: Unlabored breathing with decreased intensity of breath sounds. No wheeze. HEART: S1, S2. Regular rate and rhythm. ABDOMEN: Soft. No tenderness. LABS: No new labs have been obtained today. DIAGNOSTIC IMPRESSION AND PLAN: Patient with acute COVID-19 pneumonia in this patient who seems to have shown clinical improvement. The patient is currently covered with remdesivir, dexamethasone, Lovenox, along with respiratory support; to continue, and monitor clinical course closely. MMODL / IJN: [id number] /
[2020-03-06] MEDS: SODIUM CHLORIDE 0.9% 1,000 ML IV SCH ×2 (00:45→20:21)
[2020-03-06] MEDS: IBUPROFEN 400 MG TAB PO PRN (01:59)
[2020-03-06] MEDS: guaiFENesin-Coden 100-10MG/5ML 10 ML CUP PO PRN ×3 (02:02→21:51)
[2020-03-06] MEDS: ALBUTEROL HFA INHALER INHALATION SCH ×4 (08:23→20:44)
[2020-03-06] MEDS: SYMBICORT 80-4.5 MCG INHALER INHALATION SCH ×2 (08:23→20:44)
[2020-03-06] MEDS: ENOXAPARIN 40 MG/0.4 ML SYRINGE SQ SCH (09:07)
[2020-03-06] MEDS: ZINC SULFATE 220 MG CAP PO SCH (09:07)
[2020-03-06] MEDS: hydroCHLOROthiazide 25 MG TAB PO SCH (09:07)
[2020-03-06] MEDS: CHOLECALCIFEROL 25 MCG (1000 IU) TABLET PO SCH (09:07)
[2020-03-06] MEDS: PANTOPRAZOLE 40 MG TABLET PO SCH (09:07)
[2020-03-06] MEDS: dexAMETHasone 2 MG TAB PO SCH (09:07)
[2020-03-06] MEDS: ASCORBIC ACID 500 MG TAB PO SCH ×2 (09:07→20:20)
[2020-03-06] MEDS: amLODIPine 10 MG TAB PO SCH (09:07)
[2020-03-06] MEDS: DOCUSATE 100 MG CAP PO SCH (09:07)
--- NOTE | 2020-03-06 13:28 | P.PN ---
Subjective Progress Note Date: 03/06/20 34-year-old female who came into the hospital because of increased nausea, vomiting, diarrhea shortness of breath. The patient has been having these symptoms for the past few days. The patient was in the emergency department on 02/28/2020 40s above-mentioned symptoms an incentive the patient was having nonproductive cough. She was wheezing. She is known to have asthma. At that time, the patient was seen in the ED and she underwent the covid 19 testing and came back positive. The patient was discharged home as the patient's chest x- ray was positive and the patient was not having any issues with oxygenation. The patient came back to the hospital for worsening symptoms. The patient was having worsening shortness of breath. The patient had a CRP of 25.9, d-dimer of 0.7 and the repeat chest x-ray done yesterday showed no acute abnormalities. Computed tomography scan of the chest showed moderate patchy infiltrates predominantly peripherally and this is consistent with viral infection. The patient is currently on room air oxygen and the pulse ox is ranging between 90 to the 95%. The patient was started on Decadron 6 mg IV on a daily basis. Noted the patient was receiving Decadron an outpatient basis and dose of 6 mg by mouth daily. The patient is known to have hypertension and bronchial asthma and the patient uses Proventil rescue inhaler to masturbate basis. On 03/04/2020, the patient is still coughing. Her cough is dry. She reported only limited improvement in her cough. She is still coughing vigorously whenever she talks of whenever she takes a deep breath in. Note that the patient has history of bronchial asthma and Covid 19 pneumonia. The patient is on Symbicort. The patient is on Ventolin rescue inhaler 4 times a day through a spacer device. Earlier this morning, she had a bout of emesis. I started the patient a combination of Decadron and she is also on Remdesivir , She is also taking normal state rate of 75 mL's an hour. CRP is down to 5.5 and the LDH level is down to 236. She is afebrile. She only had a 1 bouts of emesis this morning. No nausea. No diarrhea. No abdominal pain. No Altered mentation. On 03/05/2020 patient seen in follow-up on medical floor, she still coughing, off is very harsh, nonproductive, there is good air entry noted bilaterally, there is some scattered rales and rhonchi, patient has been afebrile, room air p ulse ox is 90-97%, no fever or chills, he is on Decadron, day 3 of Remdesivir, she is on vitamins, and prophylactic dose of Lovenox, today's labs have been reviewed, d-dimer 0.58, LDH is 236, and CRPs 5.5, inflammatory markers are improving since admission. Overall she states she is feeling better, point of chest pain or palpitations, some nausea, no vomiting, no abdominal pain. On 03/06/2011 Patient seen in follow-up on medical floor, she is improving slowly, still coughing, although her cough seems to be less intense. Room air pulse ox is 95%, she's been afebrile, hemodynamically she has been stable. She is on day 4 of Remdesivir, continues on Decadron, Symbicort, and Robitussin-AC. Objective - Vital Signs Vital signs: Vital Signs Temp 98.3 F 03/06/20 09:43 Pulse 63 03/06/20 09:43 Resp 22 03/06/20 09:43 BP 143/80 03/06/20 09:43 Pulse Ox 95 03/06/20 09:43 Intake & Output 03/05/20 03/06/20 03/06/20 18:59 06:59 18:59 Intake Total 1200 Balance 1200 Intake: Intake, IV Titration 600 Amount Sodium Chloride 0.9% 1, 600 000 ml @ 75 mls/hr IV . [id number] COUNTS INCLUDE 234 BEDS AT THE [facility] Rx#:[id number] Oral 600 Other: Voiding Method Toilet Toilet # Voids 2 2 - Exam GENERAL EXAM: Alert, Very pleasant, 34-year-old female, comfortable in no apparent distress. HEAD: Normocephalic/atraumatic. EYES: Normal reaction of pupils, equal size. Conjunctiva pink, sclera white. NOSE: Clear with pink turbinates. THROAT: No erythema or exudates. NECK: No masses, no JVD, no thyroid enlargement, no adenopathy. CHEST: No chest wall deformity. Symmetrical expansion. LUNGS: Equal air entry with coarse bronchial breath sounds, and diffuse rhonchi and crackles CVS: Regular rate and rhythm, normal S1 and S2, no gallops, no murmurs, no rubs ABDOMEN: Soft, nontender. No hepatosplenomegaly, normal bowel sounds, no guarding or rigidity. EXTREMITIES: No clubbing, no edema, no cyanosis, 2+ pulses and upper and lower extremities. MUSCULOSKELETAL: Muscle strength and tone normal. SPINE: No scoliosis or deformity SKIN: No rashes CENTRAL NERVOUS SYSTEM: Alert and oriented -3. No focal deficits, tone is norm al in all 4 extremities. PSYCHIATRIC: Alert and oriented -3. Appropriate affect. Intact judgment and insight. - Labs CBC & Chem 7: 03/02/20 16:41 03/02/20 16:41 Assessment and Plan Plan: Assessment: 1 acute Covid 19 related pneumonia, with secondary shortness of breath and cough and mild hypoxemia and the patient remains on room air oxygen. Patient was started on Remdesivir treatment on 03/03/2020 2 acute hypoxemic respiratory failure, currently not requiring any options supplementation 3 nausea vomiting and diarrhea secondary to Covid 19 related infection 4 history of mild intermittent bronchial asthma 5 hypertension Plan: Continue current treatment, continue Decadron, patient is on day 4 of her Remdesivir treatment, continue cough syrup, vital signs are stable, no fever or chills, we'll obtain a follow-up chest x-ray tomorrow, continue prophylactic dose of Lovenox, if remains stable and continues to improve we'll consider discharge home tomorrow after her last dose of Remdesivir I performed a history & physical examination of the patient and discussed their management with my nurse practitioner, Mary Howell. I reviewed the nurse practitioner's note and agree with the documented findings and plan of care. Lung sounds are positive for diffuse rhonchi and rails throughout the lung howard. The findings and the impression was discussed with the patient. I attest to the documentation by the nurse practitioner. Time with Patient: Less than 30
[2020-03-06] MEDS: REMDESIVIR 100 MG in SODIUM CHLORIDE 0.9% 250 ML IVPB SCH (13:55)
--- NOTE | 2020-03-06 17:40 | PN ---
PROGRESS NOTE DATE OF SERVICE: 03/06/2020 REASON FOR FOLLOWUP: COVID-19 pneumonia. INTERVAL HISTORY: The patient is currently afebrile. The patient is feeling slightly better. She is breathing more comfortably. The patient continues to have a cough, though in intensity; not bringing up any sputum. No chest pain, abdominal pain or diarrhea. PHYSICAL EXAMINATION: Blood pressure 122/73 with a pulse of 82, temperature 98.1. She is 97% on room air. General description is a middle-aged female up in the bed in no distress. RESPIRATORY SYSTEM: Unlabored breathing with decreased intensity of breath sounds. No wheeze. HEART: S1, S2. Regular rate and rhythm. ABDOMEN: Soft. No tenderness. LABS: No new labs have been obtained today. DIAGNOSTIC IMPRESSION AND PLAN: Patient with acute COVID-19 pneumonia. Patient is currently covered with remdesivir, dexamethasone, Lovenox, zinc; to continue along with respiratory support and monitor clinical course closely. MMODL / IJN: [id number] /
--- NOTE | 2020-03-06 18:49 | PN ---
PROGRESS NOTE CHIEF COMPLAINT: COVID pneumonia. HISTORY OF PRESENT ILLNESS: This lady is doing a little bit better. Coughing has improved. She is not particularly short of breath. She is not using any oxygen at this time. PHYSICAL EXAMINATION: Chest demonstrates scattered rales. Cardiac exam is normal. IMPRESSION: 1. COVID pneumonia. 2. Hypertension. 3. Obesity. PLAN: Continue with current program. She could probably go home anytime since she is currently not on oxygen. MMODL / IJN: [id number] /
[2020-03-06] MEDS: MELATONIN 5 MG TABLET PO SCH (20:20)
[2020-03-07] MEDS: SODIUM CHLORIDE 0.9% 1,000 ML IV SCH ×3 (02:02→19:38)
[2020-03-07] MEDS: IBUPROFEN 400 MG TAB PO PRN (02:45)
[2020-03-07] MEDS: guaiFENesin-Coden 100-10MG/5ML 10 ML CUP PO PRN (02:48)
[2020-03-07] MEDS: ACETAMINOPHEN TAB 325 MG TAB PO PRN (03:55)
[2020-03-07] MEDS: CALCIUM CARBONATE 500 MG CHEWABLE PO PRN ×2 (04:27→23:26)
[2020-03-07] MEDS: ALBUTEROL HFA INHALER INHALATION SCH ×4 (07:37→21:26)
[2020-03-07] MEDS: SYMBICORT 80-4.5 MCG INHALER INHALATION SCH ×2 (07:37→21:26)
--- NOTE | 2020-03-07 07:49 | XR ---
EXAMINATION TYPE: XR chest 1V portable DATE OF EXAM: 03/07/2020 COMPARISON: 03/03/2020 INDICATION: Covid TECHNIQUE: Single frontal view of the chest is obtained. FINDINGS: The heart size is upper limits of normal. The pulmonary vasculature is normal. Some mild nonspecific infiltrate is at the right base. Findings can be compatible with atypical pneum onia or atelectasis there is silhouetting of the left costophrenic angle. Infiltrate at the left base is present. IMPRESSION: 1. Mild right lower lobe infiltrate can be compatible with atypical pneumonia or atelectasis. 2. Silhouetting of the left costophrenic angle compatible with small infiltrate
[2020-03-07] MEDS: dexAMETHasone 2 MG TAB PO SCH (10:09)
[2020-03-07] MEDS: ZINC SULFATE 220 MG CAP PO SCH (10:09)
[2020-03-07] MEDS: ENOXAPARIN 40 MG/0.4 ML SYRINGE SQ SCH (10:09)
[2020-03-07] MEDS: CHOLECALCIFEROL 25 MCG (1000 IU) TABLET PO SCH (10:09)
[2020-03-07] MEDS: DOCUSATE 100 MG CAP PO SCH (10:09)
[2020-03-07] MEDS: ASCORBIC ACID 500 MG TAB PO SCH ×2 (10:10→20:51)
[2020-03-07] MEDS: PANTOPRAZOLE 40 MG TABLET PO SCH (10:10)
[2020-03-07] MEDS: hydroCHLOROthiazide 25 MG TAB PO SCH (10:10)
[2020-03-07] MEDS: amLODIPine 10 MG TAB PO SCH (10:10)
--- NOTE | 2020-03-07 10:50 | P.PN ---
Subjective Progress Note Date: 03/07/20 34-year-old female who came into the hospital because of increased nausea, vomiting, diarrhea shortness of breath. The patient has been having these symptoms for the past few days. The patient was in the emergency department on 02/28/2020 40s above-mentioned symptoms an incentive the patient was having nonproductive cough. She was wheezing. She is known to have asthma. At that time, the patient was seen in the ED and she underwent the covid 19 testing and came back positive. The patient was discharged home as the patient's chest x- ray was positive and the patient was not having any issues with oxygenation. The patient came back to the hospital for worsening symptoms. The patient was having worsening shortness of breath. The patient had a CRP of 25.9, d-dimer of 0.7 and the repeat chest x-ray done yesterday showed no acute abnormalities. Computed tomography scan of the chest showed moderate patchy infiltrates predominantly peripherally and this is consistent with viral infection. The patient is currently on room air oxygen and the pulse ox is ranging between 90 to the 95%. The patient was started on Decadron 6 mg IV on a daily basis. Noted the patient was receiving Decadron an outpatient basis and dose of 6 mg by mouth daily. The patient is known to have hypertension and bronchial asthma and the patient uses Proventil rescue inhaler to masturbate basis. On 03/04/2020, the patient is still coughing. Her cough is dry. She reported only limited improvement in her cough. She is still coughing vigorously whenever she talks of whenever she takes a deep breath in. Note that the patient has history of bronchial asthma and Covid 19 pneumonia. The patient is on Symbicort. The patient is on Ventolin rescue inhaler 4 times a day through a spacer device. Earlier this morning, she had a bout of emesis. I started the patient a combination of Decadron and she is also on Remdesivir , She is also taking normal state rate of 75 mL's an hour. CRP is down to 5.5 and the LDH level is down to 236. She is afebrile. She only had a 1 bouts of emesis this morning. No nausea. No diarrhea. No abdominal pain. No Altered mentation. On 03/05/2020 patient seen in follow-up on medical floor, she still coughing, off is very harsh, nonproductive, there is good air entry noted bilaterally, there is some scattered rales and rhonchi, patient has been afebrile, room air pulse ox is 90-97%, no fever or chills, he is on Decadron, day 3 of Remdesivir, she is on vitamins, and prophylactic dose of Lovenox, today's labs have been reviewed, d-dimer 0.58, LDH is 236, and CRPs 5.5, inflammatory markers are improving since admission. Overall she states she is feeling better, point of chest pain or palpitations, some nausea, no vomiting, no abdominal pain. On 03/06/2011 Patient seen in follow-up on medical floor, she is improving slowly, still coughing, although her cough seems to be less intense. Room air pul se ox is 95%, she's been afebrile, hemodynamically she has been stable. She is on day 4 of Remdesivir, continues on Decadron, Symbicort, and Robitussin-AC. On 03/07/2020, the patient is being seen for a follow-up. As mentioned earlier, the patient an excessive cough related to Covid 19 related pneumonia. The patient is on a combination of Decadron and she is also on Symbicort and albuterol HFA [id number]. She had a follow-up chest x-ray which essentially shows stable changes. There may be some infiltration of the left lower lobe/lingular segment and some in the right lower lobe. Nevertheless, in comparison, findings are stable. She was complaining of some morning abdominal cramping. In terms of her blood work, the patient has no a d-dimer of 0.58 and an LDH of 236 which is lower and a CRP level of 5.5. Obviously all of these inflammatory markers have declined significantly. Her cough was gradually improving. She is on day #5 of Remdesivir, continues on Decadron, Symbicort, and Robitussin-AC. Objective - Vital Signs Vital signs: Vital Signs Temp 97.9 F 03/07/20 10:00 Pulse 51 L 03/07/20 10:00 Resp 18 03/07/20 10:00 BP 116/72 03/07/20 10:00 Pulse Ox 96 03/07/20 10:00 Intake & Output 03/06/20 03/07/20 03/07/20 18:59 06:59 18:59 Intake Total 750 Balance 750 Intake: Oral 750 Other: Voiding Method Toilet Toilet # Voids 3 2 - Exam The patient appeared well nourished and normally developed. Vital signs as documented. Head exam is unremarkable. No scleral icterus or corneal arcus noted. Neck is without jugular venous distension, thyromegaly, or carotid bruits. Carotid upstrokes are brisk bilaterally. Lungs are clear to auscultation and percussion. Cardiac exam reveals the PMI to be normally sized and situated. Rhythm is regular. First and second heart sounds normal. No murmurs, rubs or gallops. Abdominal exam reveals normal bowel sounds, no masses, no organomegaly and no aortic enlargement. Extremities are nonedematous and both femoral and pedal pulses are normal. Examination of the skin revealed no evidence of significant rashes, suspicious appearing nevi or other concerning lesions. Neurologically, the patient is awake and alert and the patient does not have any focal neurological deficit. Cranial nerves are essentially intact. - Labs CBC & Chem 7: 03/02/20 16:41 03/02/20 16:41 Assessment and Plan Plan: 1 acute Covid 19 related pneumonia, with secondary shortness of breath and cough and mild hypoxemia and the patient remains on room air oxygen. Predominant symptoms was aggressive and persistent cough which is improving and the patient is completing her treatment for now. She remains on Decadron. She is completing Remdesivir, and the patient clinically is improving and the inflammatory markers are all improving. 2 acute hypoxemic respiratory failure, currently not requiring any options supplementation 3 nausea vomiting and diarrhea secondary to Covid 19 related infection which is essentially subsided and the patient experienced some vague abdominal pain and lower abdominal area yesterday. She is feeling better today. Exam is benign. All of the inflammatory markers are improving.. The patient's last bowel movement was yesterday 4 history of mild intermittent bronchial asthma 5 hypertension Plan Continue Decadron 6 mg by mouth daily and Remdesivir , the inflammatory markers are improving including CRP and LDH Add zinc, vitamin C and vitamin D in addition to melatonin and Pepcid IV hydration with fluids and normal saline Lovenox 40 mg subcu for DVT prophylaxis Albuterol HFA on every 6 hours around the clock in addition to Symbicort 2 puffs twice a day Monitor inflammatory markers the numbers are improved considerably We'll continue to follow
[2020-03-07 11:55] LABS: Basophils # (A) 0.1 k/uL (0-0.2); Basophils % (A) 1 %; Eosinophils # (A) 0.2 k/uL (0-0.7); Eosinophils % (A) 1 %; HCT 36.6 % (34.0-46.0); HGB 11.5 gm/dL (11.4-16.0); Lymphocytes # (A) 4.1 k/uL (1.0-4.8); Lymphocytes % (A) 26 %; MCH 26.3 pg (25.0-35.0); MCHC 31.4 g/dL (31.0-37.0); Mean Platelet Volume 6.8; Monocytes # (A) 0.9 k/uL (0-1.0); Monocytes % (A) 6 %; Neutrophils # (A) 10.3 k/uL (1.3-7.7); Neutrophils % (A) 64 %; Platelet Count 523 k/uL (150-450); RBC 4.36 m/uL (3.80-5.40); RDW 13.9 % (11.5-15.5); WBC 16.1 k/uL (3.8-10.6)
[2020-03-07 12:02] LABS: ALT 15 U/L (4-34); AST 15 U/L (14-36); African American GFR (CKD) >90 (>60 ml/min/1.73 sqM); Albumin/Globulin Ratio 1.1; Alkaline Phosphatase 43 U/L (38-126); Anion Gap 4 mmol/L; Blood Urea Nitrogen 17 mg/dL (7-17); Carbon Dioxide 31 mmol/L (22-30); Chloride 103 mmol/L (98-107); Globulin 2.8 g/dL; Glucose 92 mg/dL (74-99); Non-African American GFR(CKD) 85 (>60 ml/min/1.73 sqM); Potassium 3.6 mmol/L (3.5-5.1); Sodium 138 mmol/L (137-145); Total Bilirubin 0.3 mg/dL (0.2-1.3); Total Protein 5.8 g/dL (6.3-8.2)
[2020-03-07] MEDS: REMDESIVIR 100 MG in SODIUM CHLORIDE 0.9% 250 ML IVPB SCH (14:31)
--- NOTE | 2020-03-07 15:14 | PN ---
PROGRESS NOTE CHIEF COMPLAINT: COVID pneumonia. HISTORY OF PRESENT ILLNESS: This lady was doing fairly well, but last night she woke with some crampy lower abdominal pain. She is better now. She had no fever, chills, dysuria, hematuria, frequency, constipation, etc. PHYSICAL EXAMINATION: Chest is clear. The abdomen is soft and nontender. IMPRESSION: 1. COVID pneumonia. 2. Episode of lower abdominal pain, etiology unknown. PLAN: If abdominal discomfort redevelops, workup will be necessary. MMODL / IJN: [id number] /
--- NOTE | 2020-03-07 19:54 | PN ---
PROGRESS NOTE DATE OF SERVICE: 03/07/2020 REASON FOR FOLLOWUP: COVID-19 pneumonia. INTERVAL HISTORY: Patient is currently afebrile. The patient is breathing comfortably. The patient denies having any chest pain, shortness of breath. She continues to have a cough, not bringing up any sputum. No abdominal pain or diarrhea. PHYSICAL EXAMINATION: Blood pressure 109/73 with a pulse of 64, temperature 98.1. She is 94% on room air. General description: The patient is a middle-aged female lying in bed in no distress. Respiratory system: Unlabored breathing, decreased intensity of the breath sounds. No wheeze. Heart S1, S2. Regular rate and rhythm. Abdomen soft, no tenderness. LABORATORY DATA: Hemoglobin 11.4, white count 16.1. BUN of 7, creatinine 0.89. DIAGNOSTIC IMPRESSION AND PLAN: Patient with acute COVID-19 pneumonia in this patient who has completed her Remdesivir therapy. The patient has shown overall clinical improvement. To continue with Lovenox, Dexamethasone, zinc and respiratory support and monitor clinical course closely. Continue supportive care. MMODL / IJN: [id number] /
[2020-03-07] MEDS: MELATONIN 5 MG TABLET PO SCH (20:51)
[2020-03-08] MEDS: IBUPROFEN 400 MG TAB PO PRN (07:28)
[2020-03-08] MEDS: ENOXAPARIN 40 MG/0.4 ML SYRINGE SQ SCH (07:28)
[2020-03-08] MEDS: ASCORBIC ACID 500 MG TAB PO SCH ×2 (07:28→20:57)
[2020-03-08] MEDS: DOCUSATE 100 MG CAP PO SCH ×2 (07:28→07:32)
[2020-03-08] MEDS: CHOLECALCIFEROL 25 MCG (1000 IU) TABLET PO SCH (07:28)
[2020-03-08] MEDS: PANTOPRAZOLE 40 MG TABLET PO SCH (07:28)
[2020-03-08] MEDS: ZINC SULFATE 220 MG CAP PO SCH (07:29)
[2020-03-08] MEDS: hydroCHLOROthiazide 25 MG TAB PO SCH (07:29)
[2020-03-08] MEDS: dexAMETHasone 2 MG TAB PO SCH (07:29)
[2020-03-08] MEDS: amLODIPine 10 MG TAB PO SCH (07:29)
[2020-03-08] MEDS: SYMBICORT 80-4.5 MCG INHALER INHALATION SCH ×2 (09:01→20:15)
[2020-03-08] MEDS: ALBUTEROL HFA INHALER INHALATION SCH ×4 (09:01→20:15)
--- NOTE | 2020-03-08 10:52 | P.PN ---
Subjective Progress Note Date: 03/08/20 34-year-old female who came into the hospital because of increased nausea, vomiting, diarrhea shortness of breath. The patient has been having these symptoms for the past few days. The patient was in the emergency department on 02/28/2020 40s above-mentioned symptoms an incentive the patient was having nonproductive cough. She was wheezing. She is known to have asthma. At that time, the patient was seen in the ED and she underwent the covid 19 testing and came back positive. The patient was discharged home as the patient's chest x- ray was positive and the patient was not having any issues with oxygenation. The patient came back to the hospital for worsening symptoms. The patient was having worsening shortness of breath. The patient had a CRP of 25.9, d-dimer of 0.7 and the repeat chest x-ray done yesterday showed no acute abnormalities. Computed tomography scan of the chest showed moderate patchy infiltrates predominantly peripherally and this is consistent with viral infection. The patient is currently on room air oxygen and the pulse ox is ranging between 90 to the 95%. The patient was started on Decadron 6 mg IV on a daily basis. Noted the patient was receiving Decadron an outpatient basis and dose of 6 mg by mouth daily. The patient is known to have hypertension and bronchial asthma and the patient uses Proventil rescue inhaler to masturbate basis. On 03/04/2020, the patient is still coughing. Her cough is dry. She reported only limited improvement in her cough. She is still coughing vigorously whenever she talks of whenever she takes a deep breath in. Note that the patient has history of bronchial asthma and Covid 19 pneumonia. The patient is on Symbicort. The patient is on Ventolin rescue inhaler 4 times a day through a spacer device. Earlier this morning, she had a bout of emesis. I started the patient a combination of Decadron and she is also on Remdesivir , She is also taking normal state rate of 75 mL's an hour. CRP is down to 5.5 and the LDH level is down to 236. She is afebrile. She only had a 1 bouts of emesis this morning. No nausea. No diarrhea. No abdominal pain. No Altered mentation. On 03/05/2020 patient seen in follow-up on medical floor, she still coughing, off is very harsh, nonproductive, there is good air entry noted bilaterally, there is some scattered rales and rhonchi, patient has been afebrile, room air pulse ox is 90-97%, no fever or chills, he is on Decadron, day 3 of Remdesivir, she is on vitamins, and prophylactic dose of Lovenox, today's labs have been reviewed, d-dimer 0.58, LDH is 236, and CRPs 5.5, inflammatory markers are improving since admission. Overall she states she is feeling better, point of chest pain or palpitations, some nausea, no vomiting, no abdominal pain. On 03/06/2011 Patient seen in follow-up on medical floor, she is improving slowly, still coughing, although her cough seems to be less intense. Room air pul se ox is 95%, she's been afebrile, hemodynamically she has been stable. She is on day 4 of Remdesivir, continues on Decadron, Symbicort, and Robitussin-AC. On 03/07/2020, the patient is being seen for a follow-up. As mentioned earlier, the patient an excessive cough related to Covid 19 related pneumonia. The patient is on a combination of Decadron and she is also on Symbicort and albuterol HFA [id number]. She had a follow-up chest x-ray which essentially shows stable changes. There may be some infiltration of the left lower lobe/lingular segment and some in the right lower lobe. Nevertheless, in comparison, findings are stable. She was complaining of some morning abdominal cramping. In terms of her blood work, the patient has no a d-dimer of 0.58 and an LDH of 236 which is lower and a CRP level of 5.5. Obviously all of these inflammatory markers have declined significantly. Her cough was gradually improving. She is on day #5 of Remdesivir, continues on Decadron, Symbicort, and Robitussin-AC. On 03/08/2020, the patient is feeling better. Had crampy abdominal pain is improved. The patient had several loose bowel movements, no diarrhea and she describes her bowel movement quality is being mushy. No fever. No chills. No chest pain. Cough is improving. The chest exit from yesterday was still showing right lower lobe pulmonary infiltrate. Otherwise, the patient remains on Decadron. She is also completing the course of Remdesivir the treatment without any major side effects. She is on Lovenox 40 mg subcu on a daily basis. She is on zinc, melatonin and Pepcid. The patient is also taking Motrin 400 on a when necessary basis for crampy abdominal pain. She is on Symbicort regarding her asthma. Using a different HFA 4 times a day. Objective - Vital Signs Vital signs: Vital Signs Temp 98.2 F 03/08/20 10:00 Pulse 48 L 03/08/20 10:00 Resp 18 03/08/20 10:00 BP 114/73 03/08/20 10:00 Pulse Ox 97 03/08/20 10:00 Intake & Output 03/07/20 03/08/20 03/08/20 18:59 06:59 18:59 Intake Total 600 Balance 600 Intake: Intake, IV Titration 600 Amount Sodium Chloride 0.9% 1, 600 000 ml @ 75 mls/hr IV . [id number] [facility] Rx#:[id number] Other: Voiding Method Toilet # Voids 3 2 - Exam The patient appeared well nourished and normally developed. Vital signs as documented. Head exam is unremarkable. No scleral icterus or corneal arcus noted. Neck is without jugular venous distension, thyromegaly, or carotid bruits. Carotid upstrokes are brisk bilaterally. Lungs are clear to auscultation and percussion. Cardiac exam reveals the PMI to be normally sized and situated. Rhythm is regular. First and second heart sounds normal. No murmurs, rubs or gallops. Abdominal exam reveals normal bowel sounds, no masses, no organomegaly and no aortic enlargement. Extremities are nonedematous and both femoral and pedal pulses are normal. Examination of the skin revealed no evidence of significant rashes, suspicious appearing nevi or other concerning lesions. Neurologically, the patient is awake and alert and the patient does not have any focal neurological deficit. Cranial nerves are essentially intact. - Labs CBC & Chem 7: 03/07/20 11:18 03/07/20 11:18 Labs: Abnormal Lab Results - Last 24 Hours (Table) 03/07/20 03/07/20 Range/Units 11:18 11:18 WBC 16.1 H (3.8-10.6) k/uL Plt Count 523 H (150-450) k/uL Neutrophils # 10.3 H (1.3-7.7) k/uL Carbon Dioxide 31 H (22-30) mmol/L Total Protein 5.8 L (6.3-8.2) g/dL Albumin 3.0 L (3.5-5.0) g/dL Assessment and Plan Plan: 1 acute Covid 19 related pneumonia, with secondary shortness of breath and cough and mild hypoxemia and the patient remains on room air oxygen. Predominant symptoms was aggressive and persistent cough which is improving and the patient is completing her treatment for now. She remains on Decadron. She is completing Remdesivir, and the patient clinically is improving and the inflammatory markers are all improving. 2 acute hypoxemic respiratory failure, currently not requiring any options supplementation 3 nausea vomiting and diarrhea secondary to Covid 19 related infection which is essentially subsided and the patient experienced some vague abdominal pain and lower abdominal area yesterday. She is feeling better today. Exam is benign. All of the inflammatory markers are improving.. Had several bowel movements and the patient had subsequent improvement in her crampy abdominal pain. This could be related to Covid 19 infection. The patient is taking Motrin for her crampy abdominal pain and she is improved significantly. 4 history of mild intermittent bronchial asthma 5 hypertension Plan Continue Decadron 6 mg by mouth daily and she completed Remdesivir , the infl ammatory markers are improving including CRP and LDH. The chest x-ray from yesterday was still showing some consolidation/infiltrate in the right. Clinically however the patient is feeling better. Cough has subsided. Her shortness of breath is also subsided. She is coughing much less. Add zinc, vitamin C and vitamin D in addition to melatonin and Pepcid IV hydration with fluids and normal saline 50cc/hr Lovenox 40 mg subcu for DVT prophylaxis Albuterol HFA on every 6 hours around the clock in addition to Symbicort 2 puffs twice a day Monitor inflammatory markers the numbers are improved considerably We'll continue to follow and monitor the diarrhea and monitor respiratory status over the next 24 hours.
[2020-03-08] MEDS: SODIUM CHLORIDE 0.9% 1,000 ML IV SCH (14:19)
--- NOTE | 2020-03-08 18:29 | PN ---
PROGRESS NOTE DATE OF SERVICE: 03/08/2020 REASON FOR FOLLOWUP: COVID-19 pneumonia. INTERVAL HISTORY: The patient is currently afebrile. Patient is breathing more comfortably. The patient continued to have a cough, though decreased intensity. No nausea. No vomiting. No abdominal pain. No diarrhea. PHYSICAL EXAMINATION: Blood pressure 115/73 with a pulse of 65, temperature 98.1. He is 96% on room air. General description: The patient is a middle-aged female lying in bed in no distress. Respiratory system: Unlabored breathing with decreased intensity of breath sounds in the base, with no wheeze. Heart S1, S2. Regular rate and rhythm. Abdomen soft, no tenderness. LABS: No new labs have been obtained today. DIAGNOSTIC IMPRESSION AND PLAN: Patient with acute COVID-19 pneumonia, overall clinical improvement. Patient has completed her 5-day course of Remdesivir. Currently on Lovenox, dexamethasone and zinc. Continue on respiratory support and monitor clinical course closely. MMODL / IJN: [id number] /
[2020-03-08] MEDS: MELATONIN 5 MG TABLET PO SCH (20:57)
[2020-03-08] MEDS: guaiFENesin-Coden 100-10MG/5ML 10 ML CUP PO PRN (21:30)
--- NOTE | 2020-03-08 21:30 | PN ---
PROGRESS NOTE CHIEF COMPLAINT: COVID pneumonia. HISTORY OF PRESENT ILLNESS: This lady is improving. Breathing is improving and she is not using oxygen. She did have some lower abdominal discomfort, but this seems to be better. PHYSICAL EXAMINATION: Her vital signs are normal. Chest demonstrated scattered rales. Cardiac exam is normal. The abdomen is protuberant, soft and nontender. IMPRESSION: COVID pneumonia. PLAN: Possibly home in the next day or 2. MMODL / IJN: [id number] /
[2020-03-09] MEDS: CALCIUM CARBONATE 500 MG CHEWABLE PO PRN (05:13)
[2020-03-09] MEDS: SODIUM CHLORIDE 0.9% 1,000 ML IV SCH ×2 (05:14→20:28)
[2020-03-09] MEDS: ALBUTEROL HFA INHALER INHALATION SCH ×4 (08:09→22:41)
[2020-03-09] MEDS: SYMBICORT 80-4.5 MCG INHALER INHALATION SCH ×2 (08:09→22:41)
[2020-03-09 08:16] LABS: HCT 37.6 % (34.0-46.0); HGB 11.8 gm/dL (11.4-16.0); MCH 26.6 pg (25.0-35.0); MCHC 31.4 g/dL (31.0-37.0); MCV 84.8 fL (80.0-100.0); Mean Platelet Volume 6.8; Platelet Count 548 k/uL (150-450); RBC 4.43 m/uL (3.80-5.40); WBC 18.7 k/uL (3.8-10.6)
[2020-03-09] MEDS: amLODIPine 10 MG TAB PO SCH (08:59)
[2020-03-09] MEDS: CHOLECALCIFEROL 25 MCG (1000 IU) TABLET PO SCH (08:59)
[2020-03-09] MEDS: PANTOPRAZOLE 40 MG TABLET PO SCH (08:59)
[2020-03-09] MEDS: ASCORBIC ACID 500 MG TAB PO SCH ×2 (08:59→20:28)
[2020-03-09] MEDS: hydroCHLOROthiazide 25 MG TAB PO SCH (09:00)
[2020-03-09] MEDS: dexAMETHasone 2 MG TAB PO SCH (09:00)
[2020-03-09] MEDS: ZINC SULFATE 220 MG CAP PO SCH (09:00)
[2020-03-09] MEDS: ENOXAPARIN 40 MG/0.4 ML SYRINGE SQ SCH (09:00)
[2020-03-09] MEDS: DOCUSATE 100 MG CAP PO SCH (09:04)
[2020-03-09 10:57] LABS: African American GFR (CKD) 111.5 (60.0-200.0); Anion Gap 8.4 mmol/L (4.00-12.00); BUN/Creat Ratio 22.5 Ratio (12.00-20.00); Calcium 9.1 mg/dL (8.7-10.3); Carbon Dioxide 29.6 mmol/L (21.6-31.8); Non-African American GFR(CKD) 96.2 (60.0-200.0); Potassium 4.2 mmol/L (3.5-5.5)
--- NOTE | 2020-03-09 14:01 | P.PN ---
Subjective Progress Note Date: 03/09/20 34-year-old female who came into the hospital because of increased nausea, vomiting, diarrhea shortness of breath. The patient has been having these symptoms for the past few days. The patient was in the emergency department on 02/28/2020 40s above-mentioned symptoms an incentive the patient was having nonproductive cough. She was wheezing. She is known to have asthma. At that time, the patient was seen in the ED and she underwent the covid 19 testing and came back positive. The patient was discharged home as the patient's chest x- ray was positive and the patient was not having any issues with oxygenation. The patient came back to the hospital for worsening symptoms. The patient was having worsening shortness of breath. The patient had a CRP of 25.9, d-dimer of 0.7 and the repeat chest x-ray done yesterday showed no acute abnormalities. Computed tomography scan of the chest showed moderate patchy infiltrates predominantly peripherally and this is consistent with viral infection. The patient is currently on room air oxygen and the pulse ox is ranging between 90 to the 95%. The patient was started on Decadron 6 mg IV on a daily basis. Noted the patient was receiving Decadron an outpatient basis and dose of 6 mg by mouth daily. The patient is known to have hypertension and bronchial asthma and the patient uses Proventil rescue inhaler to masturbate basis. On 03/04/2020, the patient is still coughing. Her cough is dry. She reported only limited improvement in her cough. She is still coughing vigorously whenever she talks of whenever she takes a deep breath in. Note that the patient has history of bronchial asthma and Covid 19 pneumonia. The patient is on Symbicort. The patient is on Ventolin rescue inhaler 4 times a day through a spacer device. Earlier this morning, she had a bout of emesis. I started the patient a combination of Decadron and she is also on Remdesivir , She is also taking normal state rate of 75 mL's an hour. CRP is down to 5.5 and the LDH level is down to 236. She is afebrile. She only had a 1 bouts of emesis this morning. No nausea. No diarrhea. No abdominal pain. No Altered mentation. On 03/05/2020 patient seen in follow-up on medical floor, she still coughing, off is very harsh, nonproductive, there is good air entry noted bilaterally, there is some scattered rales and rhonchi, patient has been afebrile, room air p ulse ox is 90-97%, no fever or chills, he is on Decadron, day 3 of Remdesivir, she is on vitamins, and prophylactic dose of Lovenox, today's labs have been reviewed, d-dimer 0.58, LDH is 236, and CRPs 5.5, inflammatory markers are improving since admission. Overall she states she is feeling better, point of chest pain or palpitations, some nausea, no vomiting, no abdominal pain. On 03/06/2011 Patient seen in follow-up on medical floor, she is improving slowly, still coughing, although her cough seems to be less intense. Room air pulse ox is 95%, she's been afebrile, hemodynamically she has been stable. She is on day 4 of Remdesivir, continues on Decadron, Symbicort, and Robitussin-AC. On 03/09/2020 patient seen in follow-up on medical floor, she states she is breathing easier, her cough is improving, no complaints of chest discomfort, she is currently on room air, pulse ox is 96%. No fever or chills, blood pressure stable, her main complaint today is some discomfort in the left lower quadrant of the abdomen, abdomen is soft, she denies any bloody stools. She has remained stable from pulmonary perspective, she has completed her Remdesivir, she continues on bronchodilators, she is on prophylactic dose of Lovenox, and oral Decadron. Her last d-dimer was 0.58 and that was back on the 03/04/2020. Objective - Vital Signs Vital signs: Vital Signs Temp 97.7 F 03/09/20 09:50 Pulse 65 03/09/20 09:50 Resp 20 03/09/20 09:50 BP 148/87 03/09/20 09:50 Pulse Ox 96 03/09/20 09:50 Intake & Output 03/08/20 03/09/20 03/09/20 18:59 06:59 18:59 Intake Total 600 Balance 600 Intake: Intake, IV Titration 600 Amount Sodium Chloride 0.9% 1, 600 000 ml @ 75 mls/hr IV . [id number] [facility] Rx#:[id number] Other: Voiding Method Toilet Toilet # Voids 1 - Exam GENERAL EXAM: Alert, Very pleasant, 34-year-old female, on room air with pulse ox of 96% comfortable in no apparent distress. HEAD: Normocephalic/atraumatic. EYES: Normal reaction of pupils, equal size. Conjunctiva pink, sclera white. NOSE: Clear with pink turbinates. THROAT: No erythema or exudates. NECK: No masses, no JVD, no thyroid enlargement, no adenopathy. CHEST: No chest wall deformity. Symmetrical expansion. LUNGS: Equal air entry with coarse bronchial breath sounds, and diffuse rhonchi and crackles CVS: Regular rate and rhythm, normal S1 and S2, no gallops, no murmurs, no rubs ABDOMEN: Soft, nontender. No hepatosplenomegaly, normal bowel sounds, no guarding or rigidity. EXTREMITIES: No clubbing, no edema, no cyanosis, 2+ pulses and upper and lower extremities. MUSCULOSKELETAL: Muscle strength and tone normal. SPINE: No scoliosis or deformity SKIN: No rashes CENTRAL NERVOUS SYSTEM: Alert and oriented -3. No focal deficits, tone is normal in all 4 extremities. PSYCHIATRIC: Alert and oriented -3. Appropriate affect. Intact judgment and insight. - Labs CBC & Chem 7: 03/09/20 07:33 03/09/20 07:33 Labs: Abnormal Lab Results - Last 24 Hours (Table) 03/09/20 03/09/20 Range/Units 07:33 07:33 WBC 18.7 H (3.8-10.6) k/uL Plt Count 548 H (150-450) k/uL BUN/Creatinine Ratio 22.50 H (12.00-20.00) Ratio Assessment and Plan Plan: Assessment: 1 acute Covid 19 related pneumonia, with secondary shortness of breath and cough and mild hypoxemia and the patient remains on room air oxygen. Patient was started on Remdesivir treatment on 03/03/2020 2 acute hypoxemic respiratory failure, currently not requiring any options supplementation 3 nausea vomiting and diarrhea secondary to Covid 19 related infection 4 history of mild intermittent bronchial asthma 5 hypertension Plan: Patient has been stable from pulmonary perspective, cough and dyspnea have improved, she remains on room air, maintaining stable saturations over 94%. Patient has completed her course of Remdesivir, she remains on oral Decadron, bronchodilators, cough syrup, she can be considered for discharge home today if she has been cleared by medicine. She is complaining of some mild left lower quadrant abdominal discomfort, denies any bloody stools, we'll defer to the primary care for abdominal pain management. She will need outpatient follow-up with Dr. Hardin in the office in 7-10 days, she could be considered for discharge if cleared from abdominal pain standpoint I performed a history & physical examination of the patient and discussed their management with my nurse practitioner, Mary Howell. I reviewed the nurse practitioner's note and agree with the documented findings and plan of care. Lung sounds are positive for diffuse rhonchi and rails throughout the lung howard. The findings and the impression was discussed with the patient. I attest to the documentation by the nurse practitioner. Time with Patient: Less than 30
[2020-03-09] MEDS: IOPAMIDOL CONTRAST (ORAL USE) VIAL PO PRN ×2 (14:52→15:44)
--- NOTE | 2020-03-09 17:12 | CT ---
EXAMINATION TYPE: CT abdomen pelvis w con DATE OF EXAM: 03/09/2020 COMPARISON: 12/20/2016 HISTORY: LLQ pain CT DLP: 2148.9 mGycm Automated exposure control for dose reduction was used. CONTRAST: Performed with IV Contrast, patient injected with 100 mL of Isovue 300. There is some mild groundglass interstitial infiltrate in the lower lobes. There is no pleural effusi on. There is no pericardial effusion. Heart size is normal. There is 3 cm rounded hypodense mass in the right lobe of the liver. The remainder of the liver appea rs normal. Spleen is intact. There is no pancreatic mass. The stomach is intact. Gallbladder is contr acted. There is no adrenal mass. Kidneys show satisfactory contrast opacification. There is no hydronephrosi s. There is 3 mm calculus lower pole right kidney. The ureters are not dilated. There is no retroperi toneal adenopathy. Bladder distends smoothly. Uterus is anteverted. There is no free fluid in the pel vis. There is no pelvic mass. There is no inguinal hernia. There is no mesenteric edema. There is no ascites or free air. There is oral contrast extending to th e mid ileum. The appendix is posterior and appears normal. There is no sign of a bowel obstruction. T here is broad-based 1.5 cm umbilical hernia that contains fat. I see no intestinal wall thickening. N ew graft lumbar vertebra have normal alignment. Disc spaces are fairly normal. There is no compressio n fracture. The bony pelvis is intact. Hip joints are intact. IMPRESSION: Compared to old exam there is a rounded hypodense mass in the right lobe of the liver that in retrosp ect is increased in size. The clinical significance is not clear. The delayed images do not show nod ular enhancement to suggest an ordinary hemangioma. Normal appendix. Nonobstructing right renal calculus appears new compared to old exam. There is clear ing of the ovarian cysts compared to old exam.
--- NOTE | 2020-03-09 19:02 | PN ---
PROGRESS NOTE CHIEF COMPLAINT: COVID pneumonia and lower abdominal pain. HISTORY OF PRESENT ILLNESS: This lady is complaining of significant lower abdominal pain which only seems to occur at night. She has had a low-grade temperature. White count is also elevated to around 18,000. CT was done and it reveals a lesion in the liver, but nothing in the lower abdomen. PHYSICAL EXAMINATION: Physical exam is unchanged, with a clear chest and normal cardiac exam. Abdomen is soft, nontender. IMPRESSION: 1. Lower abdominal pain, etiology unknown. 2. Leukocytosis. 3. COVID pneumonia. PLAN: 1. CT of the abdomen. 2. General surgery evaluation. MMODL / IJN: [id number] /
[2020-03-09] MEDS: MELATONIN 5 MG TABLET PO SCH (20:28)
--- NOTE | 2020-03-09 22:47 | PN ---
PROGRESS NOTE DATE OF SERVICE: 03/09/2020 REASON FOR FOLLOWUP: COVID-19 pneumonia. INTERVAL HISTORY: The patient is currently afebrile. The patient has been complaining of pain to the left lower abdominal area. The patient denies any constipation or diarrhea. No chest pain or shortness of breath. Occasional cough. No diarrhea. PHYSICAL EXAMINATION: Blood pressure 124/60 with a pulse of 72, temperature 98.2. She is 97% on room air. General description is a middle-aged female lying in bed in no distress. RESPIRATORY SYSTEM: Unlabored breathing with decreased intensity of breath sounds. No wheeze. HEART: S1, S2. Regular rate and rhythm. ABDOMEN: Soft. No tenderness. LABS: Hemoglobin is 11.8, white count 18.7. DIAGNOSTIC IMPRESSION AND PLAN: 1. Patient with acute COVID-19 pneumonia. Patient has seen clinical response to the remdesivir which the patient has completed. Currently on dexamethasone, Lovenox, zinc, which can be easily weaned off on discharge, as the patient is currently not hypoxic. 2. Patient with concern for left lower abdominal pain. CT of abdomen and pelvis has been negative. MMODL / IJN: [id number] /
[2020-03-10] MEDS: dexAMETHasone 2 MG TAB PO SCH (07:38)
[2020-03-10] MEDS: amLODIPine 10 MG TAB PO SCH (07:39)
[2020-03-10] MEDS: ENOXAPARIN 40 MG/0.4 ML SYRINGE SQ SCH (07:39)
[2020-03-10] MEDS: DOCUSATE 100 MG CAP PO SCH (07:39)
[2020-03-10] MEDS: ASCORBIC ACID 500 MG TAB PO SCH ×2 (07:39→21:51)
[2020-03-10] MEDS: CHOLECALCIFEROL 25 MCG (1000 IU) TABLET PO SCH (07:39)
[2020-03-10] MEDS: hydroCHLOROthiazide 25 MG TAB PO SCH (07:39)
[2020-03-10] MEDS: PANTOPRAZOLE 40 MG TABLET PO SCH (07:39)
[2020-03-10] MEDS: ZINC SULFATE 220 MG CAP PO SCH (07:39)
[2020-03-10] MEDS: SODIUM CHLORIDE 0.9% 1,000 ML IV SCH ×2 (07:40→21:53)
[2020-03-10] MEDS: SYMBICORT 80-4.5 MCG INHALER INHALATION SCH ×2 (07:44→19:45)
[2020-03-10] MEDS: ALBUTEROL HFA INHALER INHALATION SCH ×4 (07:44→19:45)
[2020-03-10 12:04] LABS: Appearance,Urine Clear (Clear); Bilirubin,Urine Negative (Negative); Blood,Urine Negative (Negative); Color,Urine Light Yellow; Glucose,Urine (UA) Negative (Negative); Ketones,Urine Negative (Negative); Leukocyte Esterase,Urine Negative (Negative); Nitrite,Urine Negative (Negative); PH, Urine 7.5 (5.0-8.0); Protein,Urine Negative (Negative); Specific Gravity,Urine 1.017 (1.001-1.035); Urobilinogen,Urine <2.0 mg/dL (<2.0)
[2020-03-10 12:41] VITALS: BMI 43.2
[2020-03-10 13:19] LABS: Basophils # (A) 0.1 k/uL (0-0.2); Basophils % (A) 0 %; Eosinophils # (A) 0.1 k/uL (0-0.7); Eosinophils % (A) 0 %; HCT 38.5 % (34.0-46.0); HGB 12.5 gm/dL (11.4-16.0); Lymphocytes # (A) 1.9 k/uL (1.0-4.8); Lymphocytes % (A) 9 %; MCH 27.6 pg (25.0-35.0); MCHC 32.4 g/dL (31.0-37.0); MCV 85.2 fL (80.0-100.0); Mean Platelet Volume 6.5; Monocytes # (A) 0.5 k/uL (0-1.0); Monocytes % (A) 2 %; Neutrophils # (A) 19.2 k/uL (1.3-7.7); Neutrophils % (A) 88 %; Platelet Count 543 k/uL (150-450); RBC 4.52 m/uL (3.80-5.40); RDW 14.1 % (11.5-15.5); WBC 21.8 k/uL (3.8-10.6)
--- NOTE | 2020-03-10 13:48 | P.PN ---
Subjective Progress Note Date: 03/10/20 34-year-old female who came into the hospital because of increased nausea, vomiting, diarrhea shortness of breath. The patient has been having these symptoms for the past few days. The patient was in the emergency department on 02/28/2020 40s above-mentioned symptoms an incentive the patient was having nonproductive cough. She was wheezing. She is known to have asthma. At that time, the patient was seen in the ED and she underwent the covid 19 testing and came back positive. The patient was discharged home as the patient's chest x- ray was positive and the patient was not having any issues with oxygenation. The patient came back to the hospital for worsening symptoms. The patient was having worsening shortness of breath. The patient had a CRP of 25.9, d-dimer of 0.7 and the repeat chest x-ray done yesterday showed no acute abnormalities. Computed tomography scan of the chest showed moderate patchy infiltrates predominantly peripherally and this is consistent with viral infection. The patient is currently on room air oxygen and the pulse ox is ranging between 90 to the 95%. The patient was started on Decadron 6 mg IV on a daily basis. Noted the patient was receiving Decadron an outpatient basis and dose of 6 mg by mouth daily. The patient is known to have hypertension and bronchial asthma and the patient uses Proventil rescue inhaler to masturbate basis. On 03/04/2020, the patient is still coughing. Her cough is dry. She reported only limited improvement in her cough. She is still coughing vigorously whenever she talks of whenever she takes a deep breath in. Note that the patient has history of bronchial asthma and Covid 19 pneumonia. The patient is on Symbicort. The patient is on Ventolin rescue inhaler 4 times a day through a spacer device. Earlier this morning, she had a bout of emesis. I started the patient a combination of Decadron and she is also on Remdesivir , She is also taking normal state rate of 75 mL's an hour. CRP is down to 5.5 and the LDH level is down to 236. She is afebrile. She only had a 1 bouts of emesis this morning. No nausea. No diarrhea. No abdominal pain. No Altered mentation. On 03/05/2020 patient seen in follow-up on medical floor, she still coughing, off is very harsh, nonproductive, there is good air entry noted bilaterally, there is some scattered rales and rhonchi, patient has been afebrile, room air p ulse ox is 90-97%, no fever or chills, he is on Decadron, day 3 of Remdesivir, she is on vitamins, and prophylactic dose of Lovenox, today's labs have been reviewed, d-dimer 0.58, LDH is 236, and CRPs 5.5, inflammatory markers are improving since admission. Overall she states she is feeling better, point of chest pain or palpitations, some nausea, no vomiting, no abdominal pain. On 03/06/2011 Patient seen in follow-up on medical floor, she is improving slowly, still coughing, although her cough seems to be less intense. Room air pulse ox is 95%, she's been afebrile, hemodynamically she has been stable. She is on day 4 of Remdesivir, continues on Decadron, Symbicort, and Robitussin-AC. On 03/09/2020 patient seen in follow-up on medical floor, she states she is breathing easier, her cough is improving, no complaints of chest discomfort, she is currently on room air, pulse ox is 96%. No fever or chills, blood pressure stable, her main complaint today is some discomfort in the left lower quadrant of the abdomen, abdomen is soft, she denies any bloody stools. She has remained stable from pulmonary perspective, she has completed her Remdesivir, she continues on bronchodilators, she is on prophylactic dose of Lovenox, and oral Decadron. Her last d-dimer was 0.58 and that was back on the 03/04/2020. On 03/10/2020 patient seen in follow-up on medical floor, she is breathing much easier, less bronchospastic, less dyspneic, she is on room air, vital signs have been stable, room air pulse ox is 98%, she's been afebrile, yesterday patient started complaining of left lower quadrant abdominal pain, an abdominal and pelvis CT was obtained showing a rounded hypodense mass in the right lobe of the liver of unclear clinical significance. Appendix was normal, and there was a no nobstructing right renal calculus that appeared new, and there was clearing of the ovarian cyst compared to old exam. Surgical services have been consulted. Objective - Vital Signs Vital signs: Vital Signs Temp 97.9 F 03/10/20 09:59 Pulse 87 03/10/20 09:59 Resp 17 03/10/20 09:59 BP 137/83 03/10/20 09:59 Pulse Ox 98 03/10/20 09:59 Intake & Output 03/09/20 03/10/20 03/10/20 18:59 06:59 18:59 Intake Total 1000 Balance 1000 Weight 125.191 kg Intake: Intake, IV Titration 1000 Amount Sodium Chloride 0.9% 1, 1000 000 ml @ 75 mls/hr IV . [id number] [facility] Rx#:[id number] Other: Voiding Method Toilet Toilet Toilet # Voids 3 2 - Exam GENERAL EXAM: Alert, Very pleasant, 34-year-old female, on room air with pulse ox of 96% comfortable in no apparent distress. HEAD: Normocephalic/atraumatic. EYES: Normal reaction of pupils, equal size. Conjunctiva pink, sclera white. NOSE: Clear with pink turbinates. THROAT: No erythema or exudates. NECK: No masses, no JVD, no thyroid enlargement, no adenopathy. CHEST: No chest wall deformity. Symmetrical expansion. LUNGS: Equal air entry with coarse bronchial breath sounds, and diffuse rhonchi and crackles CVS: Regular rate and rhythm, normal S1 and S2, no gallops, no murmurs, no rubs ABDOMEN: Soft, nontender. No hepatosplenomegaly, normal bowel sounds, no guarding or rigidity. EXTREMITIES: No clubbing, no edema, no cyanosis, 2+ pulses and upper and lower extremities. MUSCULOSKELETAL: Muscle strength and tone normal. SPINE: No scoliosis or deformity SKIN: No rashes CENTRAL NERVOUS SYSTEM: Alert and oriented -3. No focal deficits, tone is normal in all 4 extremities. PSYCHIATRIC: Alert and oriented -3. Appropriate affect. Intact judgment and insight. - Labs CBC & Chem 7: 03/10/20 13:01 03/09/20 07:33 Labs: Abnormal Lab Results - Last 24 Hours (Table) 03/10/20 Range/Units 13:01 WBC 21.8 H (3.8-10.6) k/uL Plt Count 543 H (150-450) k/uL Neutrophils # 19.2 H (1.3-7.7) k/uL Assessment and Plan Plan: Assessment: 1 acute Covid 19 related pneumonia, with secondary shortness of breath and cough and mild hypoxemia and the patient remains on room air oxygen. Patient was started on Remdesivir treatment on 03/03/2020 2 acute hypoxemic respiratory failure, currently not requiring any options supplementation 3 nausea vomiting and diarrhea secondary to Covid 19 related infection 4 history of mild intermittent bronchial asthma 5 hypertension 6 left lower quadrant abdominal pain, CT of the abdomen and pelvis showed rounded hypodense mass in the right lobe of the liver of unclear clinical significance, and nonobstructing right renal calculus Plan: Patient has remained stable from pulmonary perspective, she is on room air, she is tolerating ambulation, no worsening dyspnea, no fever, she has completed a course of Remdesivir, she remains on Decadron, she has had no fever or chills, CT of the abdomen and pelvis has been noted, surgical services have been consulted. We'll send a urinalysis in view of the presence of nonobstructing right renal calculus on the CT of the abdomen and pelvis. Otherwise stable from pulmonary perspective, continue nebulized bronchodilators, vitamins, and current dose of Decadron. I performed a history & physical examination of the patient and discussed their management with my nurse practitioner, Mary Howell. I reviewed the nurse practitioner's note and agree with the documented findings and plan of care. Lung sounds are positive for diffuse rhonchi and rails throughout the lung howard. The findings and the impression was discussed with the patient. I attest to the documentation by the nurse practitioner. Time with Patient: Less than 30
--- NOTE | 2020-03-10 15:09 | P.GSCN ---
History of Present Illness Consult date: 03/10/20 History of present illness: CHIEF COMPLAINT: Abdominal pain HISTORY OF PRESENT ILLNESS: This is a 34-year-old female with a known history of asthma, GERD and hypertension. She presented to the emergency room on 03/03/2020 with increased nausea, vomiting diarrhea and shortness of breath. She was found to be Covid 19 positive. She is followed by pulmonary service. And is undergoing treatment for her Covid 19 infection. Patient has been complaining of abdominal pain and a computed tomography scan of the abdomen was obtained showing a rounded hypodense mass in the right lobe of the liver that in retrospect is increased in size. The clinical significance is not clear. The delayed images do not show nodular enhancement suggesting or Rogerio hemangioma. Normal appendix. Nonobstructing right renal calculus appears new compared to old exam. There is clearing of the ovarian cysts compared to old exam. Surgical service has been consulted in regards to patient's abdominal pain. Patient seen and examined with Dr. Zarate. PAST MEDICAL HISTORY: See list. PAST SURGICAL HISTORY: See list. MEDICATIONS: See list. ALLERGIES: See list. SOCIAL HISTORY: No illicit drug use. REVIEW OF SYSTEMS: CONSTITUTIONAL: Denies fever or chills. HEENT: Denies blurred vision, vision changes, or eye pain. Denies hemoptysis CARDIOVASCULAR: Denies chest pain or pressure. RESPIRATORY: No shortness of breath. GASTROINTESTINAL: See HPI for pertinent findings HEMATOLOGIC: Denies bleeding disorders. GENITOURINARY: Denies any blood in urine or increased urinary frequency. SKIN: Denies pruitis. Denies rash. PHYSICAL EXAM: VITAL SIGNS: Reviewed GENERAL: Well-developed in no acute distress. HEENT: No sclera icterus. Extraocular movements grossly intact. Moist buccal mucosa. Head is atraumatic, normocephalic. No nasal drainage. ABDOMEN: Soft. Obese. Nondistended. Tenderness with palpation of the umbilicus area. Hernia present at umbilicus NEUROLOGIC: Alert and oriented. Cranial nerves II through XII grossly intact. LABORATORY DATA: WBC 21.8 UA negative LFTs normal IMAGING: computed tomography scan of the abdomen was obtained showing a rounded hypodense mass in the right lobe of the liver that in retrospect is increased in size. The clinical significance is not clear. The delayed images do not show nodular enhancement suggesting an ordinary hemangioma. Normal appendix. Nonobstructing right renal calculus appears new compared to old exam. There is clearing of the ovarian cysts compared to old exam. CAT scan also noted a 1.5 c m umbilical hernia that contains fat ASSESSMENT: 1. Abdominal pain 2. Hypodense mass in the right lobe of the liver that has increased in size 3. Umbilical hernia that contains fat noted on computed tomography scan 4. Covid 19 pneumonia PLAN: -Initially ordered MRI of the liver to further evaluate the hypodense mass noted in the liver. However, patient also seen by GI service they have now ordered a computed tomography scan of the abdomen and pelvis with contrast with liver protocol -We'll follow-up on computed tomography scan of liver results -Continue supportive care Thank you for this consultation Physician Pool Attendant note has been reviewed by physician. Signing provider agrees with the documented findings, assessment, and plan of care. 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 HAS HAD BLOOD TRANFUSION-NO REACTION Past Psychological History: Anxiety Additional Psychological History / Comment(s): PT IS INDEPENDANT. LIVES [place] AND 1 CHILD IN 2 STORY HOME THAT HAS 1 PORCH STEP. NO PETS. PT WORKS FOR [employer] Smoking Status: Never smoker Past Alcohol Use History: Occasional Additional Past Alcohol Use History / Comment(s): STARTED SMOKING 2002 AND QUIT 2012 SMOKED 1/2 PPD Past Drug Use History: None Reported - Past Family History Mother Family Medical History: Hypertension Additional Family Medical History / Comment(s): SARCOIDOSIS, BIPOLAR Father Family Medical History: Congestive Heart Failure (CHF), Diabetes Mellitus, Deep Vein Thrombosis (DVT), Hypertension, Sleep Apnea/CPAP/BIPAP Medications and Allergies Home Medications Medication Instructions Recorded Confirmed Type hydroCHLOROthiazide [Hydrodiuril] 25 mg PO DAILY 01/15/16 03/02/20 History amLODIPine [Norvasc] 10 mg PO DAILY 12/20/16 03/02/20 History Albuterol Sulfate [Proair Hfa] 2 puff INHALATION RT-Q4H PRN 02/20/20 03/02/20 History Fluticasone/Salmeterol 1 puff INHALATION RT-DAILY 02/20/20 03/02/20 History [Fluticasone-Salmeterol 113-14] Dexamethasone [Decadron] 6 mg PO DAILY 5 Days #5 tablet 02/28/20 03/02/20 Rx HYDROcodone/APAP 5-325MG [[place] 1 tab PO TID PRN 02/28/20 03/02/20 History 5-325] Allergies Allergy/AdvReac Type Severity Reaction Status Date / Time doxycycline Allergy Intermediate Rash/Hives Verified 03/02/20 17:32 Surgical - Exam Vital Signs Temp Pulse Resp BP Pulse Ox 100.2 F H 106 H 22 124/70 98 03/02/20 16:19 03/02/20 16:19 03/02/20 16:19 03/02/20 16:19 03/02/20 16:19 Results - Labs 03/10/20 13:01 03/09/20 07:33 Abnormal Lab Results - Last 24 Hours (Table) 03/10/20 Range/Units 13:01 WBC 21.8 H (3.8-10.6) k/uL Plt Count 543 H (150-450) k/uL Neutrophils # 19.2 H (1.3-7.7) k/uL
--- NOTE | 2020-03-10 16:35 | PN ---
PROGRESS NOTE DATE OF SERVICE: 03/10/2020 REASON FOR FOLLOWUP: COVID-19 pneumonia. INTERVAL HISTORY: The patient is currently afebrile. Patient is breathing comfortably. The patient denies having any chest pain. No shortness of breath or cough. No abdominal pain or diarrhea. PHYSICAL EXAMINATION: Blood pressure 140/73 with a pulse of 73, temperature 98.1. She is 99% on room air. General description is a young female lying in bed in no distress. RESPIRATORY SYSTEM: Unlabored breathing, clear to auscultation. HEART: S1, S2. Regular rate and rhythm. ABDOMEN: Soft, no tenderness. LABS: Hemoglobin 12.5, white count 21.8. DIAGNOSTIC IMPRESSION AND PLAN: 1. Patient with acute COVID-19 pneumonia that has been adequately treated, completed her remdesivir therapy currently on steroids and Lovenox. 2. The patient's abnormal CT of abdomen and pelvis with evidence of a hypodense mass in the right lobe of the liver, which is slightly increased in size. Surgery has been consulted. We will await recommendation. Clinically not behaving as an abscess. 3. Elevated white count more likely steroid effect and will monitor closely. MMODL / IJN: [id number] /
[2020-03-10] MEDS: MELATONIN 5 MG TABLET PO SCH (21:51)
--- NOTE | 2020-03-10 23:21 | P.CONS ---
History of Present Illness - Reason for Consult Consult date: 03/10/20 Liver lesion Requesting physician: Dajuan Calhoun - Chief Complaint Shortness of breath, nausea and vomiting - History of Present Illness 34-year-old female with a medical history significant for asthma, GERD and hypertension who presented to the hospital with complaints of shortness of breath, nausea and vomiting. The patient was found to have infection with Covid 19 and is currently receiving medical treatment. Initially the patient had been reporting nausea, vomiting and diarrhea. Currently she is stating that she is tolerating diet and that nausea and vomiting is improved. She is now reporting constipation and passing only a small amount of formed stool. She has complained of some left lower quadrant abdominal pain described as sharp and radiating to her back and a computed tomography scan was performed in evaluation. Imaging with the computed tomography scan of the abdomen was negative for any acute intra-abdominal pathology but a rounded hypodense mass in the right lobe of the liver was seen and felt to be increased in size from prior imaging studies. On questioning the patient's denies any history of underlying liver disease, viral hepatitis or other liver disease in the past. Laboratory evaluation significant for WBC 18.7, hemoglobin 11.8, platelet count 540,000, total bilirubin 0.3, alkaline phosphatase 43, AST 15 and ALT 15. Review of Systems REVIEW OF SYSTEMS: CONSTITUTIONAL: Denies any fevers, chills, weight change but she is still reporting some fatigue. CARDIOVASCULAR: Denies any chest pain, palpitations high or low blood pressures RESPIRATORY: Denies any shortness of breath, hemoptysis or cough, but had been reporting some shortness of breath previously. GENITOURINARY: No dysuria or hematuria. MUSCULOSKELETAL: No weakness reported. SKIN: Denies any new rashes or lesions, jaundice or pallor. PSYCHIATRIC: Denies any depression or anxiety. NEUROLOGY: Denies headache, denies any new focal deficits. EARS/NOSE/THROAT: No recent hearing change, congestion, nasal discharge or sore throat. EYES: No pain in eyes, discharge or change in vision. GASTROINTESTINAL: As per HPI. 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 HAS HAD BLOOD TRANFUSION-NO REACTION Past Psychological History: Anxiety Additional Psychological History / Comment(s): PT IS INDEPENDANT. LIVES [place] AND 1 CHILD IN 2 STORY HOME THAT HAS 1 PORCH STEP. NO PETS. PT WORKS FOR [employer] Smoking Status: Never smoker Past Alcohol Use History: Occasional Additional Past Alcohol Use History / Comment(s): STARTED SMOKING 2002 AND QUIT 2012 SMOKED 1/2 PPD Past Drug Use History: None Reported - Past Family History Mother Family Medical History: Hypertension Additional Family Medical History / Comment(s): SARCOIDOSIS, BIPOLAR Father Family Medical History: Congestive Heart Failure (CHF), Diabetes Mellitus, Deep Vein Thrombosis (DVT), Hypertension, Sleep Apnea/CPAP/BIPAP Medications and Allergies Home Medications Medication Instructions Recorded Confirmed Type hydroCHLOROthiazide [Hydrodiuril] 25 mg PO DAILY 01/15/16 03/02/20 History amLODIPine [Norvasc] 10 mg PO DAILY 12/20/16 03/02/20 History Albuterol Sulfate [Proair Hfa] 2 puff INHALATION RT-Q4H PRN 02/20/20 03/02/20 History Fluticasone/Salmeterol 1 puff INHALATION RT-DAILY 02/20/20 03/02/20 History [Fluticasone-Salmeterol 113-14] Dexamethasone [Decadron] 6 mg PO DAILY 5 Days #5 tablet 02/28/20 03/02/20 Rx HYDROcodone/APAP 5-325MG [[place] 1 tab PO TID PRN 02/28/20 03/02/20 History 5-325] Allergies Allergy/AdvReac Type Severity Reaction Status Date / Time doxycycline Allergy Intermediate Rash/Hives Verified 03/02/20 17:32 Physical Exam Vitals: Vital Signs Temp Pulse Resp BP Pulse Ox 03/10/20 09:59 97.9 F 87 17 137/83 98 03/10/20 05:04 98.5 F 51 L 17 139/73 98 03/10/20 02:00 98.5 F 49 L 17 124/70 96 03/09/20 21:37 72 18 112/63 97 03/09/20 20:00 72 18 03/09/20 17:51 98.2 F 55 L 18 97 03/09/20 14:00 97.8 F 64 18 130/76 100 Intake and Output 03/09/20 03/10/20 03/10/20 22:59 06:59 14:59 Intake Total 1000 Balance 1000 Intake: Intake, IV Titration 1000 Amount Sodium Chloride 0.9% 1, 1000 000 ml @ 75 mls/hr IV . [id number] [facility] Rx#:[id number] Other: Voiding Method Toilet Toilet # Voids 3 2 Weight 125.191 kg On physical examination, patient appears comfortable in no apparent distress. HEAD: Normocephalic, atraumatic. EYES: No scleral icterus. No conjunctival injection. MOUTH: No lesions, tongue midline. NECK: Trachea midline, no gross abnormalities. CHEST: Clear to auscultation with no wheezing or rhonchi appreciated. HEART: Regular rate and rhythm. ABDOMEN: Soft, obese, mildly tender to palpation in the left lower quadrant of the abdomen. Bowel sounds are positive. No organomegaly. No guarding or rigidity. EXTREMITIES: No pedal edema. SKIN: No rashes, no jaundice. NEUROLOGIC: Alert and oriented x3. No focal deficits. Results CBC & Chem 7: 03/10/20 13:01 03/09/20 07:33 Labs: Abnormal Lab Results - Last 24 Hours (Table) 03/10/20 Range/Units 13:01 WBC 21.8 H (3.8-10.6) k/uL Plt Count 543 H (150-450) k/uL Neutrophils # 19.2 H (1.3-7.7) k/uL CT scan - abdomen: report reviewed (Imaging with the computed tomography scan of the abdomen was negative for any acute intra-abdominal pathology but a rounded hypodense mass in the right lobe of the liver was seen and felt to be increased in size from prior imaging studies.) Assessment and Plan (1) Hypodense mass of right lobe of liver Narrative/Plan: 34-year-old female with multiple medical comorbidities presenting to the hospital with symptoms of shortness of breath, nausea and vomiting. The patient was found to have infection with Covid 19 and is currently receiving medical treatment. Nausea and vomiting improved and patient would previously reported diarrhea is now reporting some constipation. No signs or symptoms of GI bleeding. The patient had a computed tomography scan of the abdomen performed in evaluation of her abdominal pain with no acute intra-abdominal pathology noted and findings of a hypodense lesion in the right hepatic lobe of the liver, felt to be larger in size when compared to prior imaging. On questioning she denies any history of viral hepatitis, cirrhosis or other liver disease. Unclear etiology, likely benign in nature given absence of underlying liver disease, may be related to focal fatty infiltration given history of metabolic syndrome, however further imaging and labs will be ordered to rule out other pathology. Current Visit: Yes Status: Acute Code(s): R16.0 - HEPATOMEGALY, NOT ELSEWHERE CLASSIFIED SNOMED Code(s): 711160467 (2) Nausea vomiting and diarrhea Current Visit: Yes Status: Acute Code(s): R11.2 - NAUSEA WITH VOMITING, UNSPECIFIED; R19.7 - DIARRHEA, UNSPECIFIED SNOMED Code(s): 5677306 Plan: Supportive care Okay for diet as tolerated Continue bowel regimen Continue treatments by pulmonology and primary team of Covid 19 infection and underlying comorbidities AFP ordered given findings of liver lesion Patient had been scheduled for MRI however she was unable to perform the study secondary to body habitus, we have ordered a computed tomography scan with liver protocol/triple phase computed tomography scan of the abdomen for further evaluation of the liver lesion Acute viral hepatitis panel also ordered Thank you for allowing us to participate in the care of the patient we will continue to follow
[2020-03-11 06:23] LABS: HCT 35.9 % (34.0-46.0); HGB 12.1 gm/dL (11.4-16.0); MCH 28.6 pg (25.0-35.0); MCHC 33.7 g/dL (31.0-37.0); MCV 84.8 fL (80.0-100.0); Mean Platelet Volume 6.6; Platelet Count 511 k/uL (150-450); RBC 4.23 m/uL (3.80-5.40); RDW 14.1 % (11.5-15.5); WBC 23.4 k/uL (3.8-10.6)
[2020-03-11] MEDS: CHOLECALCIFEROL 25 MCG (1000 IU) TABLET PO SCH (07:41)
[2020-03-11] MEDS: DOCUSATE 100 MG CAP PO SCH (07:42)
[2020-03-11] MEDS: PANTOPRAZOLE 40 MG TABLET PO SCH (07:42)
[2020-03-11] MEDS: ZINC SULFATE 220 MG CAP PO SCH (07:42)
[2020-03-11] MEDS: amLODIPine 10 MG TAB PO SCH (07:42)
[2020-03-11] MEDS: dexAMETHasone 2 MG TAB PO SCH (07:42)
[2020-03-11] MEDS: ASCORBIC ACID 500 MG TAB PO SCH ×2 (07:42→20:45)
[2020-03-11] MEDS: ENOXAPARIN 40 MG/0.4 ML SYRINGE SQ SCH (07:42)
[2020-03-11] MEDS: hydroCHLOROthiazide 25 MG TAB PO SCH (07:42)
[2020-03-11] MEDS: guaiFENesin-Coden 100-10MG/5ML 10 ML CUP PO PRN ×2 (07:48→20:45)
--- NOTE | 2020-03-11 07:57 | CT ---
EXAMINATION TYPE: CT abdomen pelvis wo/w con DATE OF EXAM: 03/11/2020 HISTORY: Abn CT of liver CT DLP: 4187.4mGycm Automated Exposure Control for Dose Reduction was Utilized. CONTRAST: CT scan of the abdomen and pelvis is performed without oral and without and with IV Contrast, patient injected with 100 mL of Isovue 300. COMPARISON: CT abdomen and pelvis March 09, 2020 and older CTs. FINDINGS: LUNG BASES: Pain areas of groundglass opacity in the lung bases right greater than left remain presen t. Correlates with patient's history of covid 19 infection. LIVER/GB: Contracted gallbladder redemonstrated. Corresponding to recent CT there is new 2.7 x 2.0 cm heterogeneous hypodense lesion measuring 1.7 cm craniocaudal dimension coronal image 39 in the right hepatic lobe, and is poorly defined. Dynamic postcontrast images show no significant enhancement. Ho unsfield units greater than simple fluid. Finding not clearly seen on 2011 and 2017 studies. No addit ional intrapelvic masses. No intrahepatic or extra hepatic biliary dilatation. PANCREAS: No significant abnormality is seen. SPLEEN: No significant abnormality is seen. ADRENALS: No significant abnormality is seen. KIDNEYS: Redemonstration of nonobstructing 3 to 4 mm calculus right kidney lower pole level axial fly ge 62 with likely adjacent similar sized calculus. Present study shows additional hyperdense foci in both kidneys suspicious for additional renal calculi, for reference 2 to 3 mm lesion upper pole left kidney axial image 42. There is symmetric cortical medullary uptake and excretion without hydronephro sis seen bilaterally. BOWEL: Some residual contrast from prior CT seen in the sigmoid colon. No suspicious small or large b owel dilatation. UTERUS/ADNEXA: Anteverted uterus. LYMPH NODES: No greater than 1cm abdominal or pelvic lymph nodes are appreciated. OSSEOUS STRUCTURES: No significant abnormality is seen. OTHER: No significant additional abnormality is seen. IMPRESSION: New poorly defined 2.7 cm heterogeneous hypodense right hepatic lobe mass of uncertain et iology. Dynamic postcontrast imaging not consistent with hemangioma or other primary liver lesion. Me tastatic lesion would be favored. Consider further investigation with PET CT and/or liver protocol co ntrast-enhanced MRI and/or possible imaging guided sampling.
[2020-03-11] MEDS: SYMBICORT 80-4.5 MCG INHALER INHALATION SCH ×2 (08:40→20:11)
[2020-03-11] MEDS: ALBUTEROL HFA INHALER INHALATION SCH ×4 (08:40→20:10)
[2020-03-11 09:54] LABS: African American GFR (CKD) 96.7 (60.0-200.0); Anion Gap 5.4 mmol/L (4.00-12.00); BUN/Creat Ratio 24.44 Ratio (12.00-20.00); Calcium 9.3 mg/dL (8.7-10.3); Carbon Dioxide 27.6 mmol/L (21.6-31.8); Non-African American GFR(CKD) 83.4 (60.0-200.0); Potassium 4.3 mmol/L (3.5-5.5)
[2020-03-11 10:14] LABS: Hepatitis A Antibody IgM Non-Reactive (Non-Reactive); Hepatitis B Core IgM Non-Reactive (Non-Reactive); Hepatitis B Surface Antigen Non-Reactive (Non-Reactive); Hepatitis C IgG Antibody Non-Reactive (Non-Reactive)
[2020-03-11] MEDS: SODIUM CHLORIDE 0.9% 1,000 ML IV SCH (10:39)
--- NOTE | 2020-03-11 11:51 | P.PN ---
Subjective Progress Note Date: 03/11/20 HISTORY OF PRESENT ILLNESS This is a 34-year-old female patient treated for Covid 19 pneumonia, completed course of Remdesivir. Patient subsequently had a CAT scan of the abdomen and pelvis which found hypodense mass in the right lobe of the liver which is slightly increased in size. Surgery was consulted. Patient was to go for MRI but she states that she this could not be completed and she went for repeat CAT scan of the abdomen today. New poorly defined 2.7 cm heterogeneous hypodense right hepatic lobe mass of uncertain etiology. Dynamic postcontrast imaging not consistent with hemangioma or other primary liver lesion. Metastatic lesion would be favored. Consider further investigation with PET scan or liver protocol contrast enhanced MRI or possible imaging guided sampling. Patient den ies having any chest pain, no shortness of breath, no cough. No abdominal pain or diarrhea. Patient has been afebrile, heart rate 68, blood pressure 147/80, pulse ox 97% on room air. WBC 23.4, creatinine 0.9. Acute hepatitis panel negative. PHYSICAL EXAMINATION HEENT: Head is atraumatic, normocephalic. Pupils equal, round. Sclerae is anicteric. LUNGS: Clear to auscultation. No wheezes or rhonchi. No intercostal retractions. HEART: Regular rate and rhythm. No murmur. ABDOMEN: Soft. Bowel sounds are present. No masses. No tenderness. EXTREMITIES: No pedal edema. No calf tenderness. NEUROLOGICAL: Patient is awake, alert and oriented x3. ASSESSMENT Covid 19 pneumonia Liver mass Leukocytosis secondary to steroids PLAN Completed course of Remdesivir Continue dexamethasone, Lovenox and supplements Liver abscess is not suspected Further recommendations based upon patient's clinical course The above dictated assessment and findings were discussed with Dr. Fung. The impression and plan of care have been directed as dictated. Judi Vaughn nurse practitioner acting as scribe for Dr. Fung. Objective - Vital Signs Vital signs: Vital Signs Temp 98.3 F 03/11/20 05:19 Pulse 57 L 03/11/20 05:19 Resp 16 03/11/20 05:19 BP 156/72 03/11/20 05:19 Pulse Ox 97 03/11/20 05:19 Intake & Output 03/10/20 03/11/20 03/11/20 18:59 06:59 18:59 Weight 125.191 kg Other: Voiding Method Toilet Toilet # Voids 3 2 - Labs CBC & Chem 7: 03/11/20 06:01 03/11/20 06:01 Labs: Abnormal Lab Results - Last 24 Hours (Table) 03/10/20 03/11/20 Range/Units 13:01 06:01 WBC 21.8 H 23.4 H (3.8-10.6) k/uL Plt Count 543 H 511 H (150-450) k/uL Neutrophils # 19.2 H (1.3-7.7) k/uL
--- NOTE | 2020-03-11 12:53 | P.PN ---
Subjective Progress Note Date: 03/11/20 Principal diagnosis: Shortness of breath, nausea and vomiting. Abnormal finding on CT of abdomen Patient seen and examined lying in bed. She states her breathing and coughing has improved. She denies any fevers. She denies any abdominal pain, nausea, or vomiting. She had a repeat computed tomography scan triple phase with liver protocol this morning that showed a new poorly defined 2.7 cm heterogeneous hypodense right hepatic lobe mass of uncertain etiology. Dynamic postcontrast imaging consistent with hemangioma or other primary liver lesion. Metastatic lesion would be favored. Consider further investigation with PET CT or liver protocol contrast-enhanced MRI or possible imaging guided sampling. Objective - Vital Signs Vital signs: Vital Signs Temp 98 F 03/11/20 09:24 Pulse 68 03/11/20 09:24 Resp 17 03/11/20 09:24 BP 147/80 03/11/20 09:24 Pulse Ox 97 03/11/20 09:24 Intake & Output 03/10/20 03/11/20 03/11/20 18:59 06:59 18:59 Weight 125.191 kg Other: Voiding Method Toilet Toilet # Voids 3 2 - Exam General appearance: The patient is alert, oriented, in no acute distress. HET: Head is normocephalic and atraumatic. Conjunctiva pink. Sclera anicteric. Neck: Supple without lymphadenopathy. Abdomen: Soft, nontender, nondistended with bowel sounds. No guarding or rigidity. Extremities: Normal skin color and turgor. No pedal edema Neurological: No focal deficits. Alert and oriented 3. - Labs CBC & Chem 7: 03/11/20 06:01 03/11/20 06:01 Labs: Abnormal Lab Results - Last 24 Hours (Table) 03/10/20 03/11/20 03/11/20 Range/Units 13:01 06:01 06:01 WBC 21.8 H 23.4 H (3.8-10.6) k/uL Plt Count 543 H 511 H (150-450) k/uL Neutrophils # 19.2 H (1.3-7.7) k/uL BUN/Creatinine Ratio 24.44 H (12.00-20.00) Ratio Assessment and Plan (1) Hypodense mass of right lobe of liver Narrative/Plan: 34-year-old female with multiple medical comorbidities presenting to the hospital with symptoms of shortness of breath, nausea and vomiting. The patient was found to have infection with Covid 19 and is currently receiving medical treatment. Nausea and vomiting improved and patient would previously reported diarrhea is now reporting some constipation. No signs or symptoms of GI bleeding. The patient had a computed tomography scan of the abdomen performed in evaluation of her abdominal pain with no acute intra-abdominal pathology noted and findings of a hypodense lesion in the right hepatic lobe of the liver, felt to be larger in size when compared to prior imaging. On questioning she denies any history of viral hepatitis, cirrhosis or other liver disease. Unclear etiology, likely benign in nature given absence of underlying liver disease, may be related to focal fatty infiltration given history of metabolic syndrome, however further imaging and labs will be ordered to rule out other pathology. Triple phase CT of the abdomen with contrast liver protocol completed within impression stating Poorly defined 2.7 cm heterogeneous hypodense right hepatic lobe mass of uncertain etiology. Dynamic postcontrast imaging consistent with hemangioma or other primary liver lesion. Metastatic lesion would be favored. Consider further investigation with PET CT or liver protocol contrast-enhanced MRI or even possible imaging guided sampling. Gen. surgery on consult and ordered a liver biopsy. However has been cancelled as Radiology re-read imaging and addendum added stating: Case is reviewed with comparison to ultrasound studies on P a seat S dated 05/24/2017 and 12/21/2016. Vague heterogeneous hypodense lesion right hepatic lobe likely was present 2017 CT series 6 image 23, is identified as hyperechoic lesion on ultrasound in 2018 and 2017, these ultrasound findings along with patient's age suggesting a benign hemangioma. I would advise nonemergent liver protocol contrast-enhanced MRI to further assess due to lack of enhancement on current study. Current Visit: Yes Status: Acute Code(s): R16.0 - HEPATOMEGALY, NOT ELSEWHERE CLASSIFIED SNOMED Code(s): 608399800 (2) Nausea vomiting and diarrhea Current Visit: Yes Status: Acute Code(s): R11.2 - NAUSEA WITH VOMITING, UNSPECIFIED; R19.7 - DIARRHEA, UNSPECIFIED SNOMED Code(s): 7846252 Plan: Supportive care Diet as tolerated Continue bowel Regimen Continue medical management for a Cobra 19 infection and underlying comorbidities AFP and hepatitis panel ordered, results reviewed and negative Liver biopsy as ordered per surgical services, cancelled due to Radiology report addendum stating likely benign hemangioma Recommend outpatient follow up and MRI of liver Dr. Coronel I agree with the dictator's note, documented as a scribe by Cony Andre.
--- NOTE | 2020-03-11 13:27 | CDI ---
Documentation Clarification Form Date: 03/11/2020 CDS: Ju JinNILSA, CCDS Admit Date: 03/03/2020 09:15 Patient Name: Janet Ulrich Discharge Date: ATTENTION: The Clinical Documentation Specialists (CDI) and [facility] Coding Staff appreciate your assistance in clarifying documentation. Please respond to the clarification below the line at the bottom and electronically sign. The CDI & [facility] Coding staff will review the response and follow-up if needed. Please note: Queries are made part of the Legal Health Record. If you have any questions, please contact the author of this message via ITS. Dear Dr. Dajuan Calhoun: The patient presented with the following: SOB, Cough, Congestion, Nausea, Vomiting, Diarrhea, diagnosed with COVID a few days ago per the 03/02 ED note. History/Risk Factors: Asthma, Obesity, BMI 43.2, Former smoker. Clinical Indicators: Presented to the ED on 02/27 with cough, SOB & congestion, nausea, vomiting & diarrhea, diagnosed with COVID Pneumonia, treated with steroids & discharged to home stable. Returned to the ED on 03/02 with worsening SOB. VS 03/03: T 100.2^, P 106^, R 22 (SOB), BP 124/70, PO 98 RA BMI: 43.2 LAB 03/03: WBC 11.8^, Neut 8.5^, D Dimer 0.70^, Na 136*, K 3.2*, CRP 25.9^ 03/07 WBC 16.1, 03/09 WBC 18.7^ 03/02 CXR: No active cardiopulmonary disease. 03/02 CT Chest: Moderate patchy peripheral pulmonary airspace disease consistent with bronchopneumonia. 03/07 CXR: Mild right lower lobe infiltrate can be compatible with atypical pneumonia or atelectasis. Treatment 03/02: IV fluid 1,000 mls @ 75 mls/hr q13H, po Tylenol, IV Ativan, IV Zofran 03/03: IV Zofran, IV Decadron, IV Protonix, it C, Vit D3, Lovenox sq, po Orazinc, IV Remdesivir, INH Ventolin, IV fluid 1,000 mls @ 75 mls/hr q13H, INH Symbicort, po Melatonin In your professional opinion, please clarify if these findings signify one of the following conditions, whether the condition is POA, and cause, if known: Sepsis o With Severe Sepsis o Without Severe Sepsis Other, please specify Unable to determine Present on Admission o Yes o No Link or clarify if there is associated (due to/with): o Organ failure (Last Revision: May 2017) MTDD
--- NOTE | 2020-03-11 14:25 | P.PN ---
Subjective Progress Note Date: 03/11/20 CHIEF COMPLAINT: Abdominal pain HISTORY OF PRESENT ILLNESS: Patient is being followed in regards to her a bdominal pain. She did present with nausea, vomiting and diarrhea and shortness of breath. She is being treated for Clomid 19 infection. Patient initially had a hypodense mass noted on the right lobe of the liver noted on CAT scan. An MRI of the liver was initially ordered however patient was unable to fit in the machine due to her body habitus. A computed tomography scan of the liver was completed which noted on the addendum per radiologist's there is a vague heterogenesis hypodense lesion right hepatic lobe likely present on 2017 CT is identified as hyperechoic Lesion on ultrasound in 2018 and 2017, these ultrasound findings along with patient's age suggesting a benign hemangioma. Saulo topetesahil reports that she is feeling better. She denies any nausea or vomiting. She is tolerating diet. White count is up to 23.4 she is followed by infectious disease and WBC elevation is possibly steroid related. PHYSICAL EXAM: VITAL SIGNS: Reviewed. GENERAL: Well-developed in no acute distress. HEENT: No sclera icterus. Extraocular movements grossly intact. Moist buccal mucosa. Head is atraumatic, normocephalic. ABDOMEN: Soft. obese Nondistended. NEUROLOGIC: Alert and oriented. Cranial nerves II through XII grossly intact. ASSESSMENT: 1. Abdominal pain improving 2. Hypodense mass in the right lobe of the liver is likely due to a benign hemangioma as noted in the addendum on computed tomography scan per radiologist 3. Umbilical hernia that contains fat noted on computed tomography scan 4. Covid 19 pneumonia PLAN: -Recommend umbilical hernia repair in the outpatient setting -Continue supportive care Physician [employer] note has been reviewed by physician. Signing provider agrees with the documented findings, assessment, and plan of care. Objective - Vital Signs Vital signs: Vital Signs Temp 98 F 03/11/20 09:24 Pulse 68 03/11/20 09:24 Resp 17 03/11/20 09:24 BP 147/80 03/11/20 09:24 Pulse Ox 97 03/11/20 09:24 Intake & Output 03/10/20 03/11/20 03/11/20 18:59 06:59 18:59 Intake Total 600 Balance 600 Weight 125.191 kg Intake: IV 600 Sodium Chloride 0.9% 1, 600 000 ml @ 75 mls/hr IV . [id number] [facility] Rx#:[id number] Other: Voiding Method Toilet Toilet # Voids 3 2 - Labs CBC & Chem 7: 03/11/20 06:01 03/11/20 06:01 Labs: Abnormal Lab Results - Last 24 Hours (Table) 03/11/20 03/11/20 Range/Units 06:01 06:01 WBC 23.4 H (3.8-10.6) k/uL Plt Count 511 H (150-450) k/uL BUN/Creatinine Ratio 24.44 H (12.00-20.00) Ratio
--- NOTE | 2020-03-11 15:34 | P.CONS ---
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 HAS HAD BLOOD TRANFUSION-NO REACTION Past Psychological History: Anxiety Additional Psychological History / Comment(s): PT IS INDEPENDANT. LIVES IW[place] SPOUSE AND 1 CHILD IN 2 STORY HOME THAT HAS 1 PORCH STEP. NO PETS. PT WORKS FOR [employer] Smoking Status: Never smoker Past Alcohol Use History: Occasional Additional Past Alcohol Use History / Comment(s): STARTED SMOKING 2002 AND QUIT 2012 SMOKED 1/2 PPD Past Drug Use History: None Reported - Past Family History Mother Family Medical History: Hypertension Additional Family Medical History / Comment(s): SARCOIDOSIS, BIPOLAR Father Family Medical History: Congestive Heart Failure (CHF), Diabetes Mellitus, Deep Vein Thrombosis (DVT), Hypertension, Sleep Apnea/CPAP/BIPAP Medications and Allergies Home Medications Medication Instructions Recorded Confirmed Type hydroCHLOROthiazide [Hydrodiuril] 25 mg PO DAILY 01/15/16 03/02/20 History amLODIPine [Norvasc] 10 mg PO DAILY 12/20/16 03/02/20 History Albuterol Sulfate [Proair Hfa] 2 puff INHALATION RT-Q4H PRN 02/20/20 03/02/20 History Fluticasone/Salmeterol 1 puff INHALATION RT-DAILY 02/20/20 03/02/20 History [Fluticasone-Salmeterol 113-14] Dexamethasone [Decadron] 6 mg PO DAILY 5 Days #5 tablet 02/28/20 03/02/20 Rx HYDROcodone/APAP 5-325MG [[place] 1 tab PO TID PRN 02/28/20 03/02/20 History 5-325] Allergies Allergy/AdvReac Type Severity Reaction Status Date / Time doxycycline Allergy Intermediate Rash/Hives Verified 03/02/20 17:32 Physical Exam Vitals: Vital Signs Temp Pulse Resp BP Pulse Ox 03/11/20 14:11 98 F 64 18 114/69 97 03/11/20 09:24 98 F 68 17 147/80 97 03/11/20 05:19 98.3 F 57 L 16 156/72 97 03/11/20 01:58 98.2 F 50 L 16 142/66 94 L 03/10/20 21:06 97.8 F 59 L 17 126/72 96 03/10/20 17:00 98.1 F 60 17 106/64 98 Intake and Output 03/11/20 03/11/20 03/11/20 06:59 14:59 22:59 Intake Total 600 Balance 600 Intake: IV 600 Sodium Chloride 0.9% 1, 600 000 ml @ 75 mls/hr IV . [id number] [facility] Rx#:[id number] Other: # Voids 2 - Constitutional General appearance: cooperative, morbidly obese - EENT Eyes: EOMI, PERRLA ENT: NA/AT, normal oropharynx - Neck Neck: normal ROM - Respiratory Respiratory: bilateral: diminished, rhonchi - Cardiovascular Rhythm: regular - Gastrointestinal General gastrointestinal: soft - Integumentary Integumentary: normal - Neurologic non focal - Musculoskeletal Musculoskeletal: generalized weakness, strength equal bilaterally - Psychiatric Psychiatric: A&O x's 3, appropriate affect, intact judgment & insight Results CBC & Chem 7: 03/11/20 06:01 03/11/20 06:01 Labs: Abnormal Lab Results - Last 24 Hours (Table) 03/11/20 03/11/20 Range/Units 06:01 06:01 WBC 23.4 H (3.8-10.6) k/uL Plt Count 511 H (150-450) k/uL BUN/Creatinine Ratio 24.44 H (12.00-20.00) Ratio CT scan - abdomen: report reviewed CT scan - pelvis: report reviewed Assessment and Plan (1) Liver mass Current Visit: Yes Status: Acute Code(s): R16.0 - HEPATOMEGALY, NOT ELSEWHERE CLASSIFIED SNOMED Code(s): 649223029 Plan: Unfortunately to obtain more specific diagnosis an MRI would be needed with contrast - Hemangioma protocol, but she is unable to undergo test inpatient due to body habitus. I would recommend setting up this MRI as outpatient through [facility] (as I believe they have "open" MRI) which could accomodate this patient. TO ensure follow-up on this would recommend patient receives a date and time for this outpatient test prior to discharge. When reviewing CTs it appears consistent with hemangioma, although again cannot definitely provide this diagnosis without further evaluation. GI is also following.
--- NOTE | 2020-03-11 17:44 | PN ---
PROGRESS NOTE DATE OF SERVICE: 03/10/2020 CHIEF COMPLAINT: COVID pneumonia and intermittent episodes of abdominal pain with elevated white count. HISTORY OF PRESENT ILLNESS: This lady is still having episodes of pain at night which seem to disappear during the daytime. There is no obvious etiology and she has had no fever, chills, nausea, vomiting, diarrhea, etc. White count is rising, however. CT suggests a mass in the liver, but no other abnormality. HCG is negative. PHYSICAL EXAMINATION: Her chest is clearing. The abdomen is soft and nontender. There are no masses. IMPRESSION: 1. COVID pneumonia. 2. Elevating white count. 3. Lesion in the liver. PLAN: Continue to follow white count. Clinical findings are unremarkable. MMODL / IJN: [id number] /
--- NOTE | 2020-03-11 17:53 | PN ---
PROGRESS NOTE CHIEF COMPLAINT: COVID pneumonia and rising white count. HISTORY OF PRESENT ILLNESS: This lady is doing fairly well. She is complaining of a little discomfort in her right arm where an IV infiltrated. However, her white blood cell count is rising. It is up around 20,000. The only other abnormality is the lesion seen in the liver. PHYSICAL EXAMINATION: Physical exam is unchanged. IMPRESSION: 1. Rising white count. 2. COVID pneumonia. 3. Hepatic lesion. PLAN: Refer her to Gastroenterology for further evaluation along with Oncology, in that the report of her scan suggests that she could have neoplasia as a cause of the mass in the liver. MMODL / IJN: [id number] /
[2020-03-11] MEDS: MELATONIN 5 MG TABLET PO SCH (20:45)
[2020-03-12 03:29] VITALS: TEMP 98.2
[2020-03-12] MEDS: SODIUM CHLORIDE 0.9% 1,000 ML IV SCH (06:36)
[2020-03-12] MEDS: ALBUTEROL HFA INHALER INHALATION SCH ×2 (07:39→11:44)
[2020-03-12] MEDS: hydroCHLOROthiazide 25 MG TAB PO SCH (07:40)
[2020-03-12] MEDS: SYMBICORT 80-4.5 MCG INHALER INHALATION SCH (07:40)
[2020-03-12] MEDS: ZINC SULFATE 220 MG CAP PO SCH (07:40)
[2020-03-12] MEDS: dexAMETHasone 2 MG TAB PO SCH (07:40)
[2020-03-12] MEDS: amLODIPine 10 MG TAB PO SCH (07:41)
[2020-03-12] MEDS: CHOLECALCIFEROL 25 MCG (1000 IU) TABLET PO SCH (07:41)
[2020-03-12] MEDS: DOCUSATE 100 MG CAP PO SCH (07:41)
[2020-03-12] MEDS: ENOXAPARIN 40 MG/0.4 ML SYRINGE SQ SCH (07:41)
[2020-03-12] MEDS: ASCORBIC ACID 500 MG TAB PO SCH (07:41)
[2020-03-12] MEDS: PANTOPRAZOLE 40 MG TABLET PO SCH (07:41)
[2020-03-12 09:38] LABS: African American GFR (CKD) 111.5 (60.0-200.0); Albumin 3.5 g/dL (3.80-4.90); Albumin/Globulin Ratio 1.94 (1.60-3.17); Anion Gap 6.6 mmol/L (4.00-12.00); Calcium 8.9 mg/dL (8.7-10.3); Carbon Dioxide 27.4 mmol/L (21.6-31.8); Globulin 1.8 g/dL (1.6-3.3); Non-African American GFR(CKD) 96.2 (60.0-200.0); Potassium 4.3 mmol/L (3.5-5.5); Total Bilirubin 0.3 mg/dL (0.2-1.2); Total Protein 5.3 g/dL (6.2-8.2)
[2020-03-12 10:12] VITALS: BP 123/73; PULSE 75; RESP 18
[2020-03-12 10:31] LABS: Basophils # (A) 0.1 k/uL (0-0.2); Basophils % (A) 1 %; Eosinophils # (A) 0.1 k/uL (0-0.7); Eosinophils % (A) 0 %; HCT 36.8 % (34.0-46.0); HGB 12.1 gm/dL (11.4-16.0); Lymphocytes # (A) 2.2 k/uL (1.0-4.8); Lymphocytes % (A) 10 %; MCH 28.3 pg (25.0-35.0); MCHC 32.8 g/dL (31.0-37.0); MCV 86.3 fL (80.0-100.0); Mean Platelet Volume 7.6; Monocytes # (A) 0.7 k/uL (0-1.0); Monocytes % (A) 3 %; Neutrophils # (A) 18.5 k/uL (1.3-7.7); Neutrophils % (A) 85 %; Platelet Count 482 k/uL (150-450); RBC 4.26 m/uL (3.80-5.40); RDW 14.1 % (11.5-15.5); WBC 21.8 k/uL (3.8-10.6)
--- NOTE | 2020-03-12 13:56 | P.PN ---
Subjective Progress Note Date: 03/12/20 Principal diagnosis: Shortness of breath, nausea and vomiting. Abnormal finding on CT of abdomen The patient was seen and examined sitting up in bed. Denies any abdominal pain, nausea, or vomiting. She had no acute changes through the night. Patient to be discharged home. Objective - Vital Signs Vital signs: Vital Signs Temp 98.2 F 03/12/20 09:59 Pulse 75 03/12/20 09:59 Resp 18 03/12/20 09:59 BP 123/73 03/12/20 09:59 Pulse Ox 96 03/12/20 09:59 Intake & Output 03/11/20 03/12/20 03/12/20 18:59 06:59 18:59 Intake Total 600 Balance 600 Intake: IV 600 Sodium Chloride 0.9% 1, 600 000 ml @ 75 mls/hr IV . [id number] [facility] Rx#:[id number] Other: Voiding Method Toilet # Voids 2 - Exam General appearance: The patient is alert, oriented, in no acute distress. HET: Head is normocephalic and atraumatic. Conjunctiva pink. Sclera anicteric. Neck: Supple without lymphadenopathy. Abdomen: Soft, nontender, nondistended with bowel sounds. No guarding or rigidity. Extremities: Normal skin color and turgor. No pedal edema Neurological: No focal deficits. Alert and oriented 3. - Labs CBC & Chem 7: 03/12/20 05:43 03/12/20 05:43 Labs: Abnormal Lab Results - Last 24 Hours (Table) 03/12/20 03/12/20 Range/Units 05:43 05:43 WBC 21.8 H (3.8-10.6) k/uL Plt Count 482 H (150-450) k/uL Neutrophils # 18.5 H (1.3-7.7) k/uL BUN/Creatinine Ratio 25.00 H (12.00-20.00) Ratio AST 10 L (13-35) U/L Total Protein 5.3 L (6.2-8.2) g/dL Albumin 3.50 L (3.80-4.90) g/dL Assessment and Plan (1) Hypodense mass of right lobe of liver Narrative/Plan: 34-year-old female with multiple medical comorbidities presenting to the hospital with symptoms of shortness of breath, nausea and vomiting. The patient was found to have infection with Covid 19 and is currently receiving medical treatment. Nausea and vomiting improved and patient would previously reported diarrhea is now reporting some constipation. No signs or symptoms of GI bleeding. The patient had a computed tomography scan of the abdomen performed in evaluation of her abdominal pain with no acute intra-abdominal pathology noted and findings of a hypodense lesion in the right hepatic lobe of the liver, felt to be larger in size when compared to prior imaging. On questioning she denies any history of viral hepatitis, cirrhosis or other liver disease. Unclear etiology, likely benign in nature given absence of underlying liver d isease, may be related to focal fatty infiltration given history of metabolic syndrome, however further imaging and labs will be ordered to rule out other pathology. Triple phase CT of the abdomen with contrast liver protocol completed within impression stating Poorly defined 2.7 cm heterogeneous hypodense right hepatic lobe mass of uncertain etiology. Dynamic postcontrast imaging consistent with hemangioma or other primary liver lesion. Metastatic lesion would be favored. Consider further investigation with PET CT or liver protocol contrast-enhanced MRI or even possible imaging guided sampling. Gen. surgery on consult and ordered a liver biopsy. However has been cancelled as Radiology re-read imaging and addendum added stating: Case is reviewed with comparison to ultrasound studies on P a seat S dated 05/24/2017 and 12/21/2016. Vague heterogeneous hypodense lesion right hepatic lobe likely was present 2017 CT series 6 image 23, is identified as hyperechoic lesion on ultrasound in 2018 and 2017, these ultrasound findings along with patient's age suggesting a benign hemangioma. I would advise nonemergent liver protocol contrast-enhanced MRI to further assess due to lack of enhancement on current study. Current Visit: Yes Status: Acute Code(s): R16.0 - HEPATOMEGALY, NOT ELSEWHERE CLASSIFIED SNOMED Code(s): 590188499 (2) Nausea vomiting and diarrhea Current Visit: Yes Status: Acute Code(s): R11.2 - NAUSEA WITH VOMITING, UNSPECIFIED; R19.7 - DIARRHEA, UNSPECIFIED SNOMED Code(s): 7521610 Plan: Supportive care Diet as tolerated Continue bowel Regimen Continue medical management for a Cobra 19 infection and underlying comorbidities AFP and hepatitis panel ordered, results reviewed and negative Liver biopsy as ordered per surgical services, cancelled due to Radiology report addendum stating likely benign hemangioma Recommend outpatient follow up and MRI of liver Dr. Coronel I agree with the dictator's note, documented as a scribe by Cony Andre.
--- NOTE | 2020-03-12 14:08 | P.PN ---
Subjective Progress Note Date: 03/12/20 CHIEF COMPLAINT: Abdominal pain HISTORY OF PRESENT ILLNESS: Patient is being followed in regards to her a bdominal pain. She did present with nausea, vomiting and diarrhea and shortness of breath. She is being treated for Clovid 19 infection. Patient initially had a hypodense mass noted on the right lobe of the liver noted on CAT scan. An MRI of the liver was initially ordered however patient was unable to fit in the machine due to her body habitus. A computed tomography scan of the liver was completed which noted on the addendum per radiologist's there is a vague heterogenesis hypodense lesion right hepatic lobe likely present on 2017 CT is identified as hyperechoic Lesion on ultrasound in 2018 and 2017, these ultrasound findings along with patient's age suggesting a benign hemangioma. Saulo ramirez reports that she is feeling better. She denies any nausea or vomiting. She is tolerating diet. Afebrile. WBC 21.8 PHYSICAL EXAM: VITAL SIGNS: Reviewed. GENERAL: Well-developed in no acute distress. HEENT: No sclera icterus. Extraocular movements grossly intact. Moist buccal mucosa. Head is atraumatic, normocephalic. ABDOMEN: Soft. obese Nondistended. NEUROLOGIC: Alert and oriented. Cranial nerves II through XII grossly intact. ASSESSMENT: 1. Abdominal pain improving 2. Hypodense mass in the right lobe of the liver is likely due to a benign hemangioma as noted in the addendum on computed tomography scan per radiologist 3. Umbilical hernia that contains fat noted on computed tomography scan 4. Covid 19 pneumonia PLAN: -Recommend umbilical hernia repair in the outpatient setting with Dr. Zarate -Continue supportive care -Patient can be discharged from surgical standpoint Physician Grey [employer] Recorder note has been reviewed by physician. Signing provider agrees with the documented findings, assessment, and plan of care. Objective - Vital Signs Vital signs: Vital Signs Temp 98.2 F 03/12/20 09:59 Pulse 75 03/12/20 09:59 Resp 18 03/12/20 09:59 BP 123/73 03/12/20 09:59 Pulse Ox 96 03/12/20 09:59 Intake & Output 03/11/20 03/12/20 03/12/20 18:59 06:59 18:59 Intake Total 600 Balance 600 Intake: IV 600 Sodium Chloride 0.9% 1, 600 000 ml @ 75 mls/hr IV . [id number] COUNTS INCLUDE 234 BEDS AT [facility] Rx#:[id number] Other: Voiding Method Toilet # Voids 2 - Labs CBC & Chem 7: 03/12/20 05:43 03/12/20 05:43 Labs: Abnormal Lab Results - Last 24 Hours (Table) 03/12/20 03/12/20 Range/Units 05:43 05:43 WBC 21.8 H (3.8-10.6) k/uL Plt Count 482 H (150-450) k/uL Neutrophils # 18.5 H (1.3-7.7) k/uL BUN/Creatinine Ratio 25.00 H (12.00-20.00) Ratio AST 10 L (13-35) U/L Total Protein 5.3 L (6.2-8.2) g/dL Albumin 3.50 L (3.80-4.90) g/dL
--- NOTE | 2020-03-12 14:23 | P.PN ---
Subjective Progress Note Date: 03/12/20 HISTORY OF PRESENT ILLNESS This is a 34-year-old female patient treated for Covid 19 pneumonia, completed course of Remdesivir. Patient subsequently had a CAT scan of the abdomen and pelvis which found hypodense mass in the right lobe of the liver which is slightly increased in size. Surgery was consulted. Patient was to go for MRI but she states that she this could not be complete and she went for repeat CAT scan of the abdomen revealed New poorly defined 2.7 cm heterogeneous hypodense right hepatic lobe mass of uncertain etiology. Dynamic postcontrast imaging not consistent with hemangioma or other primary liver lesion. Metastatic lesion would be favored. Consider further investigation with PET scan or liver protocol contrast enhanced MRI or possible imaging guided sampling. 03/12: Patient denies having any chest pain, no shortness of breath, no cough. No abdominal pain or diarrhea. No abdominal tenderness. Patient has been afebrile, heart rate 75, blood pressure 123/73, pulse ox 96% on room air. WBC 21.8, creatinine 0.8. Patient is anticipating discharge home today. She is to have follow-up MRI in the outpatient setting. At this point, patient does not require any steroids at discharge for Covid. PHYSICAL EXAMINATION HEENT: Head is atraumatic, normocephalic. Pupils equal, round. Sclerae is anicteric. LUNGS: Clear to auscultation. No wheezes or rhonchi. No intercostal retractions. HEART: Regular rate and rhythm. No murmur. ABDOMEN: Soft. Bowel sounds are present. No masses. No tenderness. EXTREMITIES: No pedal edema. No calf tenderness. NEUROLOGICAL: Patient is awake, alert and oriented x3. ASSESSMENT Covid 19 pneumonia Liver mass Leukocytosis secondary to steroids PLAN Completed course of Remdesivir Continue dexamethasone, Lovenox and supplements-patient completed course. None required at the time of discharge. Liver abscess is not suspected, no need for antibiotics. Further recommendations based upon patient's clinical course The above dictated assessment and findings were discussed with Dr. Fung. The impression and plan of care have been directed as dictated. Judi Vaughn nurse practitioner acting as scribe for Dr. Fung. Objective - Vital Signs Vital signs: Vital Signs Temp 98.2 F 03/12/20 09:59 Pulse 75 03/12/20 09:59 Resp 18 03/12/20 09:59 BP 123/73 03/12/20 09:59 Pulse Ox 96 03/12/20 09:59 Intake & Output 03/11/20 03/12/20 03/12/20 18:59 06:59 18:59 Intake Total 600 Balance 600 Intake: IV 600 Sodium Chloride 0.9% 1, 600 000 ml @ 75 mls/hr IV . [id number] [facility] Rx#:[id number] Other: Voiding Method Toilet # Voids 2 - Labs CBC & Chem 7: 03/12/20 05:43 03/12/20 05:43 Labs: Abnormal Lab Results - Last 24 Hours (Table) 03/12/20 Range/Units 05:43 BUN/Creatinine Ratio 25.00 H (12.00-20.00) Ratio AST 10 L (13-35) U/L Total Protein 5.3 L (6.2-8.2) g/dL Albumin 3.50 L (3.80-4.90) g/dL
--- NOTE | 2020-03-12 23:21 | DS ---
DISCHARGE SUMMARY CHIEF COMPLAINT: Shortness of breath, cough and pneumonia. HISTORY OF PRESENT ILLNESS AND PHYSICAL EXAMINATION: Details of this lady's history and physical can be found in the initial workup. LABORATORY STUDIES: While she was in the hospital she had laboratory studies, details of which can be found in the laboratory section of her chart. COURSE IN THE HOSPITAL: After admission she was placed on bedrest and started on intravenous fluids and started on COVID-19 protocol. She was seen and followed by Infectious Disease and Pulmonology. She never got into any significant amount respiratory distress and did not require oxygen. She was doing well and then she started to complain of some lower abdominal pain. Workup was instituted and she was found to have a mass in the liver which was thought possibly to be vascular. She was seen by Gastroenterology and Surgery. There was also a suggestion that this might have been neoplastic, and she was seen by Oncology. The consensus of opinion was that this could be followed as an outpatient. She was doing well and it was felt that she could go home on March 12. She will go home on her usual activity, diet and medication and will follow up through the office. FINAL DIAGNOSES: 1. COVID pneumonia. 2. Lower abdominal pain, etiology unknown. 3. Possible hemangioma or other mass in the liver. 4. Obesity. 5. Hypertension. OPERATIONS: None. CONSULTATIONS: 1. Pulmonology. 2. Infectious Disease. 3. General Surgery. 4. GI. 5. Oncology. She is improved. MMODL / IJN: [id number] /
--- NOTE | 2020-03-12 23:31 | MISC ---
MISCELLANOUS REPORT Unable to determine. MMODL / IJN: [id number] /
== END 2020-03-12 14:24 | disposition home or self-care (01) | DRG 177 ==
LOC: EC 16:17 → 1SOBS 18:10 → OBSVTOIN 03-03 09:15 → 4SSUR 03-03 16:35
PROVIDERS: ADMIT Family Medicine; ATTEND Family Medicine
PROC: XW033E5 Introduction of Remdesivir Anti-infective into Peripheral Vein, Percutaneous Approach, New Technology Group 5 (ICD-10-PCS; principal; 2020-03-03)
PROC: 05HD33Z Insertion of Infusion Device into Right Cephalic Vein, Percutaneous Approach (ICD-10-PCS; 2020-03-05 10:45)
DX: U07.1 COVID-19 (principal); J12.82 Pneumonia due to coronavirus disease 2019; J96.01 Acute respiratory failure with hypoxia; A08.39 Other viral enteritis; Z68.41 Body mass index [BMI] 40.0-44.9, adult; I10 Essential (primary) hypertension; K21.9 Gastro-esophageal reflux disease without esophagitis; G89.29 Other chronic pain; F41.9 Anxiety disorder, unspecified; E66.9 Obesity, unspecified; N20.0 Calculus of kidney; K42.9 Umbilical hernia without obstruction or gangrene; K59.00 Constipation, unspecified; D18.03 Hemangioma of intra-abdominal structures; J45.20 Mild intermittent asthma, uncomplicated; T38.0X5A Adverse effect of glucocorticoids and synthetic analogues, initial encounter; Z79.899 Other long term (current) drug therapy; Z87.01 Personal history of pneumonia (recurrent); Z87.440 Personal history of urinary (tract) infections; Z86.14 Personal history of Methicillin resistant Staphylococcus aureus infection; Z98.890 Other specified postprocedural states; Z87.891 Personal history of nicotine dependence; Z88.3 Allergy status to other anti-infective agents; Z82.49 Family history of ischemic heart disease and other diseases of the circulatory system; Z83.3 Family history of diabetes mellitus; Z81.8 Family history of other mental and behavioral disorders
CPT/HCPCS: 36410; 36415; 71045; 71275; 74177; 74178; 76937; 80048; 80053; 80074; 81003; 82105; 83615; 83735; 84703; 85025; 85027; 85379; 86140; 94640; 94760; 96361; 96374; 96375; 99285

== ENCOUNTER → 2021-12-27 | Outpatient (CLI) | payer OTHER ==
--- NOTE | 2021-12-27 14:38 | US ---
EXAMINATION TYPE: US venous doppler duplex LE RT DATE OF EXAM: 12/27/2021 2:23 PM COMPARISON: NONE CLINICAL HISTORY: S86.111A STRAIN MUSC/TEND POST GRP AT LOW LEG LEV. SIDE PERFORMED: Right TECHNIQUE: The lower extremity deep venous system is examined utilizing real time linear array sonog josefina with graded compression, doppler sonography and color-flow sonography. VESSELS IMAGED: Common Femoral Vein Deep Femoral Vein Greater Saphenous Vein * Femoral Vein Popliteal Vein Small Saphenous Vein * Proximal Calf Veins (* superficial vessels) Right Leg: Negative for DVT Grayscale, color doppler, spectral doppler imaging performed of the deep veins of the right lower ext remity. There is normal flow, compressibility, vascular waveforms. IMPRESSION: No ultrasound evidence for acute DVT in the right lower extremity.
== END | disposition home or self-care (01) ==
LOC: RADUSWWP 12:18
PROVIDERS: ATTEND Emergency Medicine
DX: S86.111A Strain of other muscle(s) and tendon(s) of posterior muscle group at lower leg level, right leg, initial encounter (principal); S93.401A Sprain of unspecified ligament of right ankle, initial encounter

== ENCOUNTER → 2021-12-27 | Outpatient (CLI) | payer OTHER ==
--- NOTE | 2021-12-27 12:18 | XR ---
EXAMINATION TYPE: XR ankle complete RT DATE OF EXAM: 12/27/2021 COMPARISON: NONE HISTORY: Pain FINDINGS: Three views of the ankle demonstrate the ankle mortise to be intact and symmetric. The joint spaces are preserved. The osseous structures are intact. Small calcaneal spur. IMPRESSION: 1. No definite acute fracture or dislocation, if symptoms persist follow-up study in 7 to 10 days wou ld be suggested.
== END | disposition home or self-care (01) ==
LOC: RADXRMAIN 11:53
PROVIDERS: ATTEND Emergency Medicine
DX: S86.111A Strain of other muscle(s) and tendon(s) of posterior muscle group at lower leg level, right leg, initial encounter (principal); S93.401A Sprain of unspecified ligament of right ankle, initial encounter

== ENCOUNTER → 2022-01-31 | Outpatient (CLI) | payer OTHER ==
--- NOTE | 2022-02-01 05:28 | MR ---
EXAMINATION TYPE: MR ankle RT wo con DATE OF EXAM: 01/31/2022 COMPARISON: Ganglion cyst on the little toe HISTORY: Rt ankle pain, injury Multiplanar multiecho imaging of the right ankle performed with no contrast. The ankle mortise is anatomic. The collateral ligaments appear intact. There is plantar calcaneal spu rring. There is thickening and mixed signal in the Achilles tendon on the posterior aspect of the dis gretta tibia. There is some thickening of the Achilles tendon close to the attachment on the calcaneus. The subtalar joint is intact. There is mild ankle joint effusion. The medial and lateral flexor tendons of the ankle appear intact. There is some mild increased signal on the T2 images in the anterior talus consistent with some bone bruise. No fracture line seen. This area measures 2.5 cm. There is subcutaneous edema on the posterio r aspect of the ankle. IMPRESSION: There is abnormal signal pattern and thickening of the Achilles tendon consistent with extensive tear . Mild subcutaneous edema. Mild ankle joint effusion. Mild bone bruise of the anterior talus. No fractu re seen.
== END | disposition home or self-care (01) ==
LOC: RADMRIMAIN 06:26
PROVIDERS: ATTEND Emergency Medicine
DX: S93.401A Sprain of unspecified ligament of right ankle, initial encounter (principal); S90.01XA Contusion of right ankle, initial encounter; M25.471 Effusion, right ankle

== ENCOUNTER 2022-10-29 22:11 | Emergency (ER) | payer OTHER ==
[2022-10-29 22:30] VITALS: PULSE 70; RESP 18
[2022-10-29] MEDS ORDERED: SODIUM CHLORIDE 0.9% 1,000 ML IV ONE (22:41)
[2022-10-29] MEDS ORDERED: ACETAMINOPHEN TAB 325 MG TAB PO STA (22:41)
[2022-10-29 23:34] LABS: ALT 33 U/L (4-34); AST 34 U/L (14-36); African American GFR (CKD) >90 (>60 ml/min/1.73 sqM); Albumin 4.4 g/dL (3.5-5.0); Alkaline Phosphatase 60 U/L (38-126); Anion Gap 10 mmol/L; Blood Urea Nitrogen 15 mg/dL (7-17); Calcium 9.6 mg/dL (8.4-10.2); Carbon Dioxide 25 mmol/L (22-30); Chloride 104 mmol/L (98-107); Glucose 59 mg/dL (74-99); INR 0.9 (<1.2); Non-African American GFR(CKD) 83 (>60 ml/min/1.73 sqM); Potassium 3.5 mmol/L (3.5-5.1); Prothrombin Time 9.5 sec (9.0-12.0); Sodium 139 mmol/L (137-145); Total Bilirubin 0.3 mg/dL (0.2-1.3); Total Protein 7.6 g/dL (6.3-8.2)
[2022-10-29 23:41] LABS: Appearance,Urine Clear (Clear); Bacteria,Urine Rare /hpf; Bilirubin,Urine Negative (Negative); Blood,Urine Moderate (Negative); Color,Urine Colorless; Glucose,Urine (UA) Negative (Negative); Ketones,Urine Negative (Negative); Leukocyte Esterase,Urine Negative (Negative); Mucus,Urine Rare /hpf; Nitrite,Urine Negative (Negative); PH, Urine 6.5 (5.0-8.0); Protein,Urine Negative (Negative); RBC,Urine 1 /hpf (0-5); Specific Gravity,Urine 1.019 (1.001-1.035); Squamous Epithelial Cell,Urine 1 /hpf (0-4); Urobilinogen,Urine <2.0 mg/dL (<2.0); WBC,Urine <1 /hpf (0-5)
[2022-10-29 23:48] LABS: HCG,Quantitative Serum 2464.6 mIU/mL
[2022-10-29 23:49] LABS: Basophils # (A) 0.1 k/uL (0-0.2); Basophils % (A) 1 %; Eosinophils # (A) 0.3 k/uL (0-0.7); Eosinophils % (A) 3 %; HCT 38.4 % (34.0-46.0); HGB 12.5 gm/dL (11.4-16.0); Lymphocytes # (A) 3.2 k/uL (1.0-4.8); Lymphocytes % (A) 27 %; MCH 28.7 pg (25.0-35.0); MCHC 32.5 g/dL (31.0-37.0); MCV 88.5 fL (80.0-100.0); Mean Platelet Volume 7.8; Monocytes # (A) 0.6 k/uL (0-1.0); Monocytes % (A) 5 %; Neutrophils # (A) 7.5 k/uL (1.3-7.7); Neutrophils % (A) 63 %; Platelet Count 382 k/uL (150-450); RBC 4.34 m/uL (3.80-5.40); RDW 14.2 % (11.5-15.5); WBC 11.9 k/uL (3.8-10.6)
--- NOTE | 2022-10-30 01:18 | US ---
EXAM: US , Transvaginal CLINICAL HISTORY: ITS.REASON US Reason: pain, spotting TECHNIQUE: Real-time transvaginal obstetrical ultrasound of the maternal pelvis and a first trimester with image documentation. Transvaginal imaging was used for better evaluation of the fetus and adnexa. COMPARISON: No relevant prior studies available. FINDINGS: Gestation: No intrauterine gestation clearly identified. Uterus/cervix: The uterus measures 11.7 x 8.6 x 9 cm. A rounded heterogeneous mass centrally within the uterus measuring 4.2 x 3.5 x 3.4 cm with areas of internal shadowing is identified. Ovaries: The right ovary measures 4.6 x 2.9 x 2.7 cm. A corpus luteum cyst is noted in the right ovary. The left ovary measures 2.9 x 2.4 x 2. 3 cm. No adnexal mass. Free fluid: No free fluid. IMPRESSION: 1. No definite normal-appearing intrauterine gestation identified. 2. A rounded heterogeneous mass centrally within the uterus measuring 4. 2 x 3.5 x 3.4 cm with areas of internal shadowing is identified. The appearance is most consistent with a fibroid. However, the differential considerations are more prominent in the setting of a positive test and include molar . Please correlate with laboratory findings unavailable at the time of image interpretation. 3. Probable corpus luteum cyst in the right ovary. No adnexal mass. No free fluid.
--- NOTE | 2022-10-30 03:19 | ED ---
General Adult HPI - General Chief complaint: Vaginal Bleeding Stated complaint: positive , cramping, spotting Time Seen by Provider: 10/29/22 22:32 Source: patient Mode of arrival: ambulatory Limitations: no limitations - History of Present Illness Initial comments: 37-year-old female A3 presenting with chief complaint of cramping and vaginal spotting. Her LMP was 8/6. States that today she started experiencing cramping and spotting while at work. No fevers or chills. No nausea or vomiting. No lightheadedness. - Related Data Home Medications Medication Instructions Recorded Confirmed hydroCHLOROthiazide [Hydrodiuril] 25 mg PO DAILY 01/15/16 03/02/20 amLODIPine [Norvasc] 10 mg PO DAILY 12/20/16 03/02/20 Albuterol Sulfate [Proair Hfa] 2 puff INHALATION RT-Q4H PRN 02/20/20 03/02/20 Fluticasone Propion/Salmeterol 1 puff INHALATION RT-DAILY 02/20/20 03/02/20 [Fluticasone-Salmeterol 113-14] HYDROcodone/APAP 5-325MG [[place] 1 tab PO TID PRN 02/28/20 03/02/20 5-325] Previous Rx's Medication Instructions Recorded dexAMETHasone [Decadron] 6 mg PO DAILY 5 Days #5 tablet 02/28/20 Allergies Allergy/AdvReac Type Severity Reaction Status Date / Time doxycycline Allergy Intermediate Rash/Hives Verified 10/29/22 22:30 Review of Systems ROS Statement: Those systems with pertinent positive or pertinent negative responses have been documented in the HPI. ROS Other: All systems not noted in ROS Statement are negative. Past Medical History Past Medical History: Asthma, GERD/Reflux, Hypertension, Pneumonia Additional Past Medical History / Comment(s): SINUS PROBLEMS, Hx of Kidney infection, chronic back pain, sciatica History of Any Multi-Drug Resistant Organisms: MRSA Date of last positivie culture/infection: 02/20/20 ESBL 2007 MRSA MDRO Source:: ESBL URINE MRSA LEGAT [facility] Past Surgical History: Tonsillectomy Additional Past Surgical History / Comment(s): GANGLION CYST REMOVAL Right wrist, OVARIAN CYST REMOVAL (Bilateral), d&c (multiple), Breast reduction surgery Feb 2016, Past Anesthesia/Blood Transfusion Reactions: Previous Problems w/ Anesthesia Additional Past Anesthesia/Blood Transfusion Reaction / Comment(s): EARLY WAKING DURING PROCEDURE. HAS HAD BLOOD TRANFUSION-NO REACTION Past Psychological History: Anxiety Smoking Status: Never smoker Past Alcohol Use History: Occasional Past Drug Use History: None Reported - Past Family History Mother Family Medical History: Hypertension Additional Family Medical History / Comment(s): SARCOIDOSIS, BIPOLAR Father Family Medical History: Congestive Heart Failure (CHF), Diabetes Mellitus, Deep Vein Thrombosis (DVT), Hypertension, Sleep Apnea/CPAP/BIPAP General Exam Limitations: no limitations General appearance: alert, in no apparent distress Head exam: Present: atraumatic, normocephalic, normal inspection Eye exam: Present: normal appearance, EOMI Neck exam: Present: normal inspection, full ROM Respiratory exam: Present: normal lung sounds bilaterally. Absent: respiratory distress, wheezes, rales, rhonchi, stridor Cardiovascular Exam: Present: regular rate, normal rhythm, normal heart sounds. Absent: systolic murmur, diastolic murmur, rubs, gallop, clicks Neurological exam: Present: alert, oriented X3, CN II-XII intact Psychiatric exam: Present: normal affect, normal mood Skin exam: Present: warm, dry, intact, normal color. Absent: rash Course Vital Signs 10/29/22 10/30/22 22:27 03:50 Temperature 98 F 98.1 F Pulse Rate 70 70 Respiratory 18 18 Rate Blood Pressure 159/91 135/80 O2 Sat by Pulse 99 100 Oximetry Medical Decision Making - Medical Decision Making Was pt. sent in by a medical professional or institution (, PA, SENIOR CLINICAL SAS PROGRAMMER, urgent care, hospital, or mcc...) When possible be specific @ -[No] Did you speak to anyone other than the patient for history (EMS, parent, family, police, friend...)? What history was obtained from this source @ -[No] Did you review nursing and triage notes (agree or disagree)? Why? @ -[I reviewed and agree with nursing and triage notes] Were old charts reviewed (outside hosp., previous admission, EMS record, old EKG, old radiological studies, urgent care reports/EKG's, mcc records)? Report findings @ -[No old charts were reviewed] Differential Diagnosis (chest pain, altered mental status, abdominal pain women, abdominal pain men, vaginal bleeding, weakness, fever, dyspnea, syncope, headache, dizziness, GI bleed, back pain, seizure, CVA, palpatations, mental health, musculoskeletal)? @ -[facility] Differential Abdominal Pain Women: Appendicitis, Cholecystitis, diverticulosis, ischemic bowel, pancreatitis, hepatitis, UTI, gastroenteritis, AAA, incarcerated hernia, bowel obstruction, constipation, inflammatory bowel, hepatitis, peptic ulcer disease, splenic in farction, perforated viscus, vulvitis, ovarian torsion, PID, kidney stone, placenta abruption... This is not meant to be an all-inclusive list EKG interpreted by me (3pts min.). @ -[As above] X-rays interpreted by me (1pt min.). @ -[None done] CT interpreted by me (1pt min.). @ -[None done] U/S interpreted by me (1pt. min.). @ -No tenderness. Normal-appearing intrauterine gestation identified. A rounded heterogenous mass centrally within the uterus measuring 4.2 x 3.5 x 3.4 cellulitis. Internal Charlet is identified my appearance is most consistent with fibroid. However the differential consideration is a prominent resecting a positive test in her . Please correlate with laboratory findings are available at the time of admission patient. Probable corpud luteum in the R ovary. No adnexal masses. No free fluid. What testing was considered but not performed or refused? (CT, X-rays, U/S, labs)? Why? @ -[None] What meds were considered but not given or refused? Why? @ -[None] Did you discuss the management of the patient with other professionals (professionals i.e. , PA, SENIOR CLINICAL SAS PROGRAMMER, lab, RT, psych nurse, social media campaign manager, rate clerk, teacher, principal gifts officer, field nurse case manager)? Give summary @ -I spoke with OBGYN [facility] solutions architect Dr. Butterfield and stated that it is too early to determine if this is a molar , patient should get a repeat beta hCG within 48 hours and follow up in the office for repeat ultrasound. Was smoking cessation discussed for >3mins.? @ -[No] Was critical care preformed (if so, how long)? @ -[No] Were there social determinants of health that impacted care today? How? (Homelessness, low income, unemployed, alcoholism, drug addiction, transportation, low edu. Level, literacy, decrease access to med. care, [facility]p, rehab)? @ -[No] Was there de-escalation of care discussed even if they declined (Discuss DNR or withdrawal of care, Hospice)? DNR status @ -[No] What co-morbidities impacted this encounter? (DM, HTN, Smoking, COPD, CAD, Cancer, CVA, ARF, Chemo, Hep., AIDS, mental health diagnosis, sleep apnea, morbid obesity)? @ -[None] Was patient admitted / discharged? Hospital course, mention meds given and route, prescriptions, significant lab abnormalities, going to OR and other pertinent info. @ -37-year-old female currently about 5 weeks presenting with chief complaint of cramping and spotting that started today. Physical examination is conducted. HCG 2464.6. Urine shows moderate blood. Blood type AB+. Ultrasound is concerning for a molar I spoke with [facility] HIDE TRIMMER oracle solutions architect Dr. Butterfield who stated that it is too early to determine if this is a true molar , the patient should receive a repeat beta hCG in 48 hours and follow- up in the office. Patient is educated on today's findings on the treatment plan. She is provided with a prescription for outpatient beta hCG in 48 hours. Follow-up with PCP. Report back to ER with any new or worsening symptoms. Discussed return parameters and answered all questions. Patient conveyed verbal understanding and agreed to the plan. I discussed this case in detail with my attending Dr. Wilcox Undiagnosed new problem with uncertain prognosis? @ -[No] Drug Therapy requiring intensive monitoring for toxicity (Heparin, Nitro, Insulin, Cardizem)? @ -[No] Were any procedures done? @ -[No] Diagnosis/symptom? @ -Threatened miscarriage Acute, or Chronic, or Acute on Chronic? @ -acute Uncomplicated (without systemic symptoms) or Complicated (systemic symptoms)? @ -uncomplicated Side effects of treatment? @ -[No] Exacerbation, Progression, or Severe Exacerbation? @ -[No] - Lab Data Result diagrams: 10/29/22 22:51 10/29/22 22:51 Lab Results 10/29/22 10/29/22 10/29/22 Range/Units 22:51 22:51 22:51 WBC 11.9 H (3.8-10.6) k/uL RBC 4.34 (3.80-5.40) m/uL Hgb 12.5 (11.4-16.0) gm/dL Hct 38.4 (34.0-46.0) % MCV 88.5 (80.0-100.0) fL MCH 28.7 (25.0-35.0) pg MCHC 32.5 (31.0-37.0) g/dL RDW 14.2 (11.5-15.5) % Plt Count 382 (150-450) k/uL MPV 7.8 Neutrophils % 63 % Lymphocytes % 27 % Monocytes % 5 % Eosinophils % 3 % Basophils % 1 % Neutrophils # 7.5 (1.3-7.7) k/uL Lymphocytes # 3.2 (1.0-4.8) k/uL Monocytes # 0.6 (0-1.0) k/uL Eosinophils # 0.3 (0-0.7) k/uL Basophils # 0.1 (0-0.2) k/uL PT 9.5 (9.0-12.0) sec INR 0.9 (<1.2) APTT 26.0 (22.0-30.0) sec Sodium (137-145) mmol/L Potassium (3.5-5.1) mmol/L Chloride (98-107) mmol/L Carbon Dioxide (22-30) mmol/L Anion Gap mmol/L BUN (7-17) mg/dL Creatinine (0.52-1.04) mg/dL Est GFR (CKD-EPI)AfAm (>60 ml/min/1.73 sqM) Est GFR (CKD-EPI)NonAf (>60 ml/min/1.73 sqM) Glucose (74-99) mg/dL Calcium (8.4-10.2) mg/dL Total Bilirubin (0.2-1.3) mg/dL AST (14-36) U/L ALT (4-34) U/L Alkaline Phosphatase (38-126) U/L Total Protein (6.3-8.2) g/dL Albumin (3.5-5.0) g/dL HCG, Quant mIU/mL Urine Color Colorless Urine Appearance Clear (Clear) Urine pH 6.5 (5.0-8.0) Ur Specific [place] 1.019 (1.001-1.035) Urine Protein Negative (Negative) Urine Glucose (UA) Negative (Negative) Urine Ketones Negative (Negative) Urine Blood Moderate H (Negative) Urine Nitrite Negative (Negative) Urine Bilirubin Negative (Negative) Urine Urobilinogen <2.0 (<2.0) mg/dL Ur Leukocyte Esterase Negative (Negative) Urine RBC 1 (0-5) /hpf Urine WBC <1 (0-5) /hpf Ur Squamous Epith Cells 1 (0-4) /hpf Urine Bacteria Rare H (None) /hpf Urine Mucus Rare H (None) /hpf Blood Type Blood Type Recheck Bld Type Recheck Status 10/29/22 10/30/22 Range/Units 22:51 01:35 WBC (3.8-10.6) k/uL RBC (3.80-5.40) m/uL Hgb (11.4-16.0) gm/dL Hct (34.0-46.0) % MCV (80.0-100.0) fL MCH (25.0-35.0) pg MCHC (31.0-37.0) g/dL RDW (11.5-15.5) % Plt Count (150-450) k/uL MPV Neutrophils % % Lymphocytes % % Monocytes % % Eosinophils % % Basophils % % Neutrophils # (1.3-7.7) k/uL Lymphocytes # (1.0-4.8) k/uL Monocytes # (0-1.0) k/uL Eosinophils # (0-0.7) k/uL Basophils # (0-0.2) k/uL PT (9.0-12.0) sec INR (<1.2) APTT (22.0-30.0) sec Sodium 139 (137-145) mmol/L Potassium 3.5 (3.5-5.1) mmol/L Chloride 104 (98-107) mmol/L Carbon Dioxide 25 (22-30) mmol/L Anion Gap 10 mmol/L BUN 15 (7-17) mg/dL Creatinine 0.89 (0.52-1.04) mg/dL Est GFR (CKD-EPI)AfAm >90 (>60 ml/min/1.73 sqM) Est GFR (CKD-EPI)NonAf 83 (>60 ml/min/1.73 sqM) Glucose 59 L (74-99) mg/dL Calcium 9.6 (8.4-10.2) mg/dL Total Bilirubin 0.3 (0.2-1.3) mg/dL AST 34 (14-36) U/L ALT 33 (4-34) U/L Alkaline Phosphatase 60 (38-126) U/L Total Protein 7.6 (6.3-8.2) g/dL Albumin 4.4 (3.5-5.0) g/dL HCG, Quant 2464.6 mIU/mL Urine Color Urine Appearance (Clear) Urine pH (5.0-8.0) Ur Specific [place] (1.001-1.035) Urine Protein (Negative) Urine Glucose (UA) (Negative) Urine Ketones (Negative) Urine Blood (Negative) Urine Nitrite (Negative) Urine Bilirubin (Negative) Urine Urobilinogen (<2.0) mg/dL Ur Leukocyte Esterase (Negative) Urine RBC (0-5) /hpf Urine WBC (0-5) /hpf Ur Squamous Epith Cells (0-4) /hpf Urine Bacteria (None) /hpf Urine Mucus (None) /hpf Blood Type AB Positive Blood Type Recheck AB Pos Bld Type Recheck Status No Disposition Clinical Impression: Threatened Disposition: HOME SELF-CARE Condition: Fair Instructions (If sedation given, give patient instructions): Threatened Miscarriage (ED), Complete Hydatidiform Mole (ED) Additional Instructions: Follow up with RAW HIDE TRIMMER. Report back to ER with any new or worsening symptoms. Lab work was drawn in 48 hours. You may go to [facility] with your prescription and walk in at any time. Is patient prescribed a controlled substance at d/c from ED?: No Referrals: Dajuan Calhoun MD [Primary Care Provider] - 1-2 days Maia Butterfield DO [Doctor of Osteopathic Medicine] - 1-2 days Time of Disposition: 03:19
[2022-10-30 03:53] VITALS: BP 135/80; TEMP 98.1
== END 2022-10-30 03:52 | disposition home or self-care (01) ==
LOC: EC 22:11
DX: O20.0 Threatened abortion (principal); O10.011 Pre-existing essential hypertension complicating pregnancy, first trimester; O99.519 Diseases of the respiratory system complicating pregnancy, unspecified trimester; J45.909 Unspecified asthma, uncomplicated; Z3A.01 Less than 8 weeks gestation of pregnancy; Z79.51 Long term (current) use of inhaled steroids; Z79.899 Other long term (current) drug therapy; Z88.1 Allergy status to other antibiotic agents
CPT/HCPCS: 36415; 76801; 76817; 80053; 81001; 84702; 85025; 85610; 85730; 86900; 86901; 96360; 99284

== ENCOUNTER → 2022-10-31 | Outpatient (CLI) | payer OTHER | END | disposition home or self-care (01) | LOC: LABWHC1 13:34 | PROVIDERS: ATTEND Physician Assistant | DX: O20.0 Threatened abortion (principal); Z3A.00 Weeks of gestation of pregnancy not specified | CPT/HCPCS: 36415; 84702 ==

== ENCOUNTER 2023-04-29 04:40 | Emergency (ER) | payer OTHER ==
[2023-04-29] MEDS ORDERED: MAG HYDROX/AL HYDROX/SIMETH 30 ML CUP PO PRN (05:02)
--- NOTE | 2023-04-29 05:06 | ED ---
Chest Pain HPI - General Chief Complaint: Chest Pain Stated Complaint: chest pain Time Seen by Provider: 04/29/23 04:49 Source: patient Mode of arrival: wheelchair Limitations: no limitations - History of Present Illness Initial Comments: This patient is a 37-year-old woman who presents to evaluation of chest pain, dyspnea, palpitations. The patient states that she had been working tonight, she had been briefly sleeping and then woke with the constellation of symptoms. She took her blood pressure and pulse and they were both elevated and she became concerned as she is 31 weeks . She had hypertension pre-existing to her , but they have been concerned she may develop preeclampsia. A little over a week ago, the patient did go to the emergency department for blood pressure above 200, but it has been better since that time. The patient denies headache, change in her vision, abdominal pain, nausea vomiting. MD Complaint: chest pain Onset/Timin -: minutes(s) Onset: during rest, awoke with symptoms Pain Location: substernal Pain Radiation: none Severity: moderate Quality: other Consistency: now resolved Improves With: nothing Worsens With: nothing Anginal Symptoms: dyspnea Treatments Prior to Arrival: none - Related Data Home Medications Medication Instructions Recorded Confirmed hydroCHLOROthiazide [Hydrodiuril] 25 mg PO DAILY 01/15/16 03/02/20 amLODIPine [Norvasc] 10 mg PO DAILY 12/20/16 03/02/20 Albuterol Sulfate [Proair Hfa] 2 puff INHALATION RT-Q4H PRN 02/20/20 03/02/20 Fluticasone Propion/Salmeterol 1 puff INHALATION RT-DAILY 02/20/20 03/02/20 [Fluticasone-Salmeterol 113-14] HYDROcodone/APAP 5-325MG [[place] 1 tab PO TID PRN 02/28/20 03/02/20 5-325] Previous Rx's Medication Instructions Recorded dexAMETHasone [Decadron] 6 mg PO DAILY 5 Days #5 tablet 02/28/20 Allergies Allergy/AdvReac Type Severity Reaction Status Date / Time doxycycline Allergy Intermediate Rash/Hives Verified 10/29/22 22:30 Review of Systems ROS Statement: Those systems with pertinent positive or pertinent negative responses have been documented in the HPI. ROS Other: All systems not noted in ROS Statement are negative. Constitutional: Denies: fever, chills Respiratory: Reports: as per HPI, dyspnea. Denies: cough, wheezes, hemoptysis Cardiovascular: Reports: palpitations. Denies: chest pain, orthopnea, edema, syncope Gastrointestinal: Denies: abdominal pain, nausea, vomiting, diarrhea, hematemesis Genitourinary: Denies: dysuria, hematuria, discharge, abnormal menses Musculoskeletal: Denies: back pain Skin: Denies: rash Neurological: Denies: headache, weakness EKG Findings - EKG Results: EKG: interpreted by ERMD, sinus rhythm (Rate 97 bpm), normal axis - Blocks, [employer], Hypertrophy, ST Abn: AV and intraventricular conduction: right bundle branch block (fixed/intermittent, complete/incomplete) (Incomplete) Past Medical History Past Medical History: Asthma, GERD/Reflux, Hypertension, Pneumonia Additional Past Medical History / Comment(s): SINUS PROBLEMS, Hx of Kidney infection, chronic back pain, sciatica History of Any Multi-Drug Resistant Organisms: MRSA Date of last positivie culture/infection: 02/20/20 ESBL 2006 MRSA MDRO Source:: ESBL URINE MRSA LEGAT [facility] Past Surgical History: Tonsillectomy Additional Past Surgical History / Comment(s): GANGLION CYST REMOVAL Right wrist, OVARIAN CYST REMOVAL (Bilateral), d&c (multiple), Breast reduction surgery Feb 2016, Past Anesthesia/Blood Transfusion Reactions: Previous Problems w/ Anesthesia Additional Past Anesthesia/Blood Transfusion Reaction / Comment(s): EARLY WAKING DURING PROCEDURE. HAS HAD BLOOD TRANFUSION-NO REACTION Past Psychological History: Anxiety Smoking Status: Never smoker Past Alcohol Use History: Occasional Past Drug Use History: None Reported - Past Family History Mother Family Medical History: Hypertension Additional Family Medical History / Comment(s): SARCOIDOSIS, BIPOLAR Father Family Medical History: Congestive Heart Failure (CHF), Diabetes Mellitus, Deep Vein Thrombosis (DVT), Hypertension, Sleep Apnea/CPAP/BIPAP General Exam Limitations: no limitations General appearance: alert, in no apparent distress Head exam: Present: atraumatic, normocephalic Eye exam: Present: normal appearance. Absent: scleral icterus, conjunctival injection Neck exam: Present: normal inspection Respiratory exam: Present: normal lung sounds bilaterally. Absent: respiratory distress, wheezes, rales, rhonchi, stridor Cardiovascular Exam: Present: normal rhythm, tachycardia, normal heart sounds. Absent: systolic murmur, diastolic murmur, rubs, gallop GI/Abdominal exam: Present: soft, mass (Gravid uterus palpable above umbilicus). Absent: distended, tenderness, guarding, rebound, rigid Extremities exam: Present: normal inspection, normal capillary refill. Absent: pedal edema, calf tenderness Back exam: Present: normal inspection. Absent: CVA tenderness (R), CVA tenderness (L) Neurological exam: Present: alert Skin exam: Present: warm, dry, intact, normal color. Absent: rash Course Vital Signs 04/29/23 04/29/23 04:42 06:32 Temperature 98.7 F Pulse Rate 105 H 99 Respiratory 18 18 Rate Blood Pressure 118/73 129/77 O2 Sat by Pulse 100 98 Oximetry Chest Pain MDM - MDM The patient had chest x-ray that interpreted as negative for acute infiltrate, congestive heart failure, pneumothorax. Discussed results with the patient who is feeling well except for some mild headache. She did request Tylenol but states that it is headache that she has had before, not worse headache of life. She would like to go home. She will follow-up with her clinical quality analyst/manufacturing associate. We discussed appropriate return parameters Was pt. sent in by a medical professional or institution (, PA, STEEL SPAR OPERATOR, urgent care, hospital, or senior care...) When possible be specific @ -[No] Did you speak to anyone other than the patient for history (EMS, parent, family, police, friend...)? What history was obtained from this source @ -[No] Did you review nursing and triage notes (agree or disagree)? Why? @ -[I reviewed and agree with nursing and triage notes] Were old charts reviewed (outside hosp., previous admission, EMS record, old EKG, old radiological studies, urgent care reports/EKG's, senior care records)? Report findings @ -[No old charts were reviewed] Differential Diagnosis (chest pain, altered mental status, abdominal pain women, abdominal pain men, vaginal bleeding, weakness, fever, dyspnea, syncope, headache, dizziness, GI bleed, back pain, seizure, CVA, palpatations, mental health, musculoskeletal)? @ -[Amphetamine Toxicity Anxiety Disorders Apnea, Sleep Cocaine-Related Cardiomyopathy Heart Failure Hyperthyroidism, Thyroid Storm, and Graves Disease Hypertrophic Cardiomyopathy Myocardial Infarction Phencyclidine Toxicity Primary Aldosteronism Stroke, Hemorrhagic Stroke, Ischemic -induced hypertension/preeclampsia/eclampsia EKG interpreted by me (3pts min.). @ -[Interpreted as above X-rays interpreted by me (1pt min.). @ -[I interpreted as above CT interpreted by me (1pt min.). @ -[None done] U/S interpreted by me (1pt. min.). @ -[None done] What testing was considered but not performed or refused? (CT, X-rays, U/S, labs)? Why? @ -[None] What meds were considered but not given or refused? Why? @ -[None] Did you discuss the management of the patient with other professionals (professionals i.e. Dr., PA, STEEL SPAR OPERATOR, lab, RT, psych nurse, health and social care teacher, [employer] retailer sales consultant, teacher, postal delivery officer, window caser)? Give summary @ -[No] Was smoking cessation discussed for >3mins.? @ -[No] Was critical care preformed (if so, how long)? @ -[No] Were there social determinants of health that impacted care today? How? (Homelessness, low income, unemployed, alcoholism, drug addiction, transportation, low edu. Level, literacy, decrease access to med. care, mcfp, rehab)? @ -[No] Was there de-escalation of care discussed even if they declined (Discuss DNR or withdrawal of care, Hospice)? DNR status @ -[No] What co-morbidities impacted this encounter? (DM, HTN, Smoking, COPD, CAD, Cancer, CVA, ARF, Chemo, Hep., AIDS, mental health diagnosis, sleep apnea, morbid obesity)? @ -[None] Was patient admitted / discharged? Hospital course, mention meds given and route, prescriptions, significant lab abnormalities, going to OR and other pertinent info. @ -[See above Undiagnosed new problem with uncertain prognosis? @ -[No] Drug Therapy requiring intensive monitoring for toxicity (Heparin, Nitro, Insulin, Cardizem)? @ -[No] Were any procedures done? @ -[No] Diagnosis/symptom? @ -[Acute on chronic hypertension Acute, or Chronic, or Acute on Chronic? @ -[Acute on chronic Uncomplicated (without systemic symptoms) or Complicated (systemic symptoms)? @ -[Uncomplicated Side effects of treatment? @ -[No] Exacerbation, Progression, or Severe Exacerbation? @ -[No] Poses a threat to life or bodily function? How? (Chest pain, [place], [place], pneumonia, PE, COPD, DKA, ARF, appy, cholecystitis, CVA, Diverticulitis, Homicidal, Suicidal, threat to staff... and all critical care pts) @ -[Yes associated hypertension is very concerning, the patient blood pressure responded to treatment and she will have very close follow-up with her manufacturing associate and we discussed the return parameters Disposition Clinical Impression: Chest pain Disposition: HOME SELF-CARE Condition: Good Instructions (If sedation given, give patient instructions): Chest Pain (ED) Is patient prescribed a controlled substance at d/c from ED?: No Referrals: Dajuan Calhoun MD [Primary Care Provider] - 1-2 days
[2023-04-29 05:09] VITALS: RESP 18; TEMP 98.7
[2023-04-29 05:38] LABS: Basophils % (A) 0 %; Eosinophils # (A) 0.2 k/uL (0-0.7); Eosinophils % (A) 2 %; HCT 34.7 % (34.0-46.0); HGB 11.4 gm/dL (11.4-16.0); Lymphocytes # (A) 1.8 k/uL (1.0-4.8); Lymphocytes % (A) 15 %; MCH 28.1 pg (25.0-35.0); MCV 85.1 fL (80.0-100.0); Monocytes # (A) 0.5 k/uL (0-1.0); Monocytes % (A) 5 %; Neutrophils % (A) 76 %; Platelet Count 305 k/uL (150-450); RBC 4.07 m/uL (3.80-5.40); RDW 14.6 % (11.5-15.5); WBC 11.9 k/uL (3.8-10.6)
[2023-04-29 05:40] LABS: Appearance,Urine Clear (Clear); Bilirubin,Urine Negative (Negative); Blood,Urine Negative (Negative); Color,Urine Colorless; Glucose,Urine (UA) Negative (Negative); Ketones,Urine Negative (Negative); Leukocyte Esterase,Urine Negative (Negative); Nitrite,Urine Negative (Negative); Protein,Urine Negative (Negative); Specific Gravity,Urine 1.012 (1.001-1.035); Urobilinogen,Urine <2.0 mg/dL (<2.0)
[2023-04-29 05:43] LABS: INR 0.8 (<1.2); Partial Thromboplastin Time 24.3 sec (22.0-30.0); Prothrombin Time 9.5 sec (10.0-12.5)
[2023-04-29 05:57] LABS: ALT 18 U/L (4-34); AST 21 U/L (14-36); African American GFR (CKD) >90 (>60 ml/min/1.73 sqM); Albumin 3.5 g/dL (3.5-5.0); Alkaline Phosphatase 93 U/L (38-126); Anion Gap 9 mmol/L; Blood Urea Nitrogen 9 mg/dL (7-17); Calcium 9.4 mg/dL (8.4-10.2); Carbon Dioxide 18 mmol/L (22-30); Chloride 111 mmol/L (98-107); Glucose 93 mg/dL (74-99); LDH 159 U/L (120-246); Magnesium 1.7 mg/dL (1.6-2.3); Non-African American GFR(CKD) >90 (>60 ml/min/1.73 sqM); Potassium 3.3 mmol/L (3.5-5.1); Sodium 138 mmol/L (137-145); Total Bilirubin 0.3 mg/dL (0.2-1.3); Total Protein 6.5 g/dL (6.3-8.2); Uric Acid 4.3 mg/dL (3.7-7.4)
[2023-04-29] MEDS: ACETAMINOPHEN TAB 325 MG TAB PO STA (06:26)
[2023-04-29 06:57] VITALS: BP 129/77; PULSE 99
--- NOTE | 2023-04-29 08:01 | XR ---
EXAM: XR chest 1V portable CLINICAL INDICATION:Female, 37 years old with history of chest pain; [facility] COMPARISON: 04/09/2020 TECHNIQUE: Chest single view. FINDINGS: Lines/tubes/devices: EKG leads over the chest. No indwelling lines are seen. Cardiomediastinum: Cardiac silhouette appears upper normal in size. Unremarkable mediastinal silhouette. Vasculature: No increased pulmonary vasculature. Lungs/pleura: No consolidation, sizeable effusion, or visible pneumothorax. Bones/soft tissues: Bony thorax appears grossly intact as seen. Regional soft tissues appear unremarkable. IMPRESSION: No acute cardiopulmonary findings.
== END 2023-04-29 06:38 | disposition home or self-care (01) ==
LOC: EC 04:40
DX: O26.893 Other specified pregnancy related conditions, third trimester (principal); R07.89 Other chest pain; Z88.8 Allergy status to other drugs, medicaments and biological substances; Z3A.31 31 weeks gestation of pregnancy
CPT/HCPCS: 36415; 71045; 80053; 81003; 83615; 83735; 84484; 84550; 85025; 85610; 85730; 93005; 99285